=== PATIENT | male | born 1940 | race Caucasian/White ===

== ENCOUNTER 2018-07-24 12:00 | Emergency (ER) | payer MEDICARE, OTHER, SELFPAY ==
[2018-07-24 12:04] VITALS: BP 154/71; PULSE 51; RESP 15; TEMP 36.7; O2SAT 100; BMI 27.9
--- NOTE | 2018-07-24 12:07 | ED.CHESTPAIN ---
HPI - Chest Pain General Chief Complaint: Chest Pain Stated Complaint: Chest Pain Time Seen by Provider: 07/24/18 12:02 Source: patient Mode of arrival: EMS Limitations: no limitations History of Present Illness HPI narrative: Patient is a 77-year-old male with a history of atrial fibrillation on Coumadin here for evaluation of chest pain. Patient states that his chest pain started sometime within the past 48 hr. He was unsure of the exact onset. He states that he was at a birthday [employer] when it started. He states that was a pressure. Has been constant for the past 2 days. Things were not improving this morning so his called EMS. His gave him aspirin prior to this. When EMS arrived they gave him nitroglycerin which resolved his symptoms. He has been symptom free since he received this nitro. Denies any other associated symptoms. Related Data Home Medications Medication Instructions Recorded Confirmed One-A-Day Men's Multivitamin 1 tab PO DAILY 07/24/18 07/24/18 aspirin 81 mg PO QPM 07/24/18 07/24/18 bumetanide 1 mg PO QPM 07/24/18 07/24/18 bumetanide 2 mg PO QAM 07/24/18 07/24/18 carbidopa-levodopa 3 tab PO TID 07/24/18 07/24/18 cholecalciferol (vitamin D3) 1,000 unit PO DAILY 07/24/18 07/24/18 [Vitamin D3] docusate calcium [Stool Softener] 1 - 2 cap PO DAILY 07/24/18 07/24/18 ketoconazole 1 applic TOPICAL DIRECTED 07/24/18 07/24/18 metoprolol succinate [Toprol XL] 25 tab PO DAILY 07/24/18 07/24/18 potassium chloride [Klor-Con 10] 10 meq PO BID 07/24/18 07/24/18 ranitidine HCl 150 mg PO BID 07/24/18 07/24/18 selegiline HCl 5 mg PO BID 07/24/18 07/24/18 sennosides [senna] 1 tab PO BID 07/24/18 07/24/18 tolterodine [Detrol LA] 2 mg PO DAILY 07/24/18 07/24/18 warfarin 5 mg PO DAILY 07/24/18 07/24/18 Allergies Allergy/AdvReac Type Severity Reaction Status Date / Time penicillin G Allergy Swelling Verified 07/24/18 12:22 of Lip/Tongue/Throat hydrochlorothiazide AdvReac Verified 07/24/18 12:22 lisinopril AdvReac Cough Verified 07/24/18 12:22 simvastatin [From Zocor] AdvReac Weakness Verified 07/24/18 12:22 Review of Systems Constitutional Denies fatigue and Denies fever(s) ENT Ears, Nose, Mouth, and Throat: Denies vertigo and Denies dizziness Cardiovascular Reports chest pain, Denies diaphoresis, Denies rapid heart rate, Reports edema, Reports irregular heart rhythm, Reports leg edema, Denies palpitations and Denies dyspnea Respiratory Denies dyspnea Gastrointestinal Gastrointestinal: Denies abdominal pain, Denies diarrhea, Denies nausea and Denies vomiting Genitourinary Denies dysuria Musculoskeletal Denies myalgias and Denies arthralgias Integumentary/Breasts Denies lesions and Denies rash Neurologic Denies confusion, Denies vertigo and Denies dizziness Psychiatric Denies confusion Endocrine Denies fatigue and Denies palpitations Hematologic/Lymphatic Denies easy bleeding and Denies easy bruising [facility] Medical History Atrial fibrillation (Acute) Congestive heart failure (Acute) Hypertension (Acute) Surgical History No pertinent past surgical history (Acute) Social History Smoking Status: Former smoker Exam Initial Vital Signs Initial Vital Signs: Vital Signs Temperature 98.0 F 07/24/18 12:04 Pulse Rate 51 L 07/24/18 12:04 Respiratory Rate 15 07/24/18 12:04 Blood Pressure 154/71 H 07/24/18 12:04 Pulse Oximetry 100 07/24/18 12:04 Const General: cooperative, comfortable, well developed, well groomed and No acute distress Orientation: alert, awake and oriented x3 HENMT Head: normal to inspection and normocephalic Resp Effort & Inspection: normal respiratory effort Auscultation: clear to auscultation bilaterally Cardio Rate: bradycardic Rhythm: abnormal rhythm irregularly irregular Pulses: radial pulses present GI Inspection: normal to inspection and non-distended Palpation: soft, No firm and No tender Skin Lesions: no lesions Rashes: no rashes Neuro General: alert, awake and oriented x3 Cognition: normal cognition Extrem Other: 2+ bilateral lower extremity edema Psych Appearance: grossly normal and well kempt Course Orders Ordered: ED Orders 07/24/18 12:07 XR chest 1V Stat EKG-12 Lead Stat 07/24/18 12:30 B Type Natriuretic Peptide Stat Complete Blood Count AUTO DIFF Stat Comprehensive Metabolic Panel Stat Lipase Stat Partial Thromboplastin Time Stat Prothrombin Time INR Stat Troponin & CK Cardiac Panel Stat Sodium Chloride (Normal Saline 0.9%) 1,000 mls @ 150 mls/hr IV CONT TC Last Admin: 07/24/18 12:26 Dose: 150 mls/hr Vital Signs - 8 hr 07/24/18 12:04 07/24/18 13:30 Temperature 98.0 F Pulse Rate 51 L 63 Respiratory Rate 15 99 H Blood Pressure 154/71 H Blood Pressure [Left Arm] 147/75 H Pulse Oximetry 100 99 MDM - Chest Pain Lab Data Attestation: I reviewed the patient's lab results. Result diagrams: 07/24/18 12:30 07/24/18 12:30 Lab Results 07/24/18 07/24/18 07/24/18 Range/Units 12:30 12:30 12:30 WBC 8.6 (4.5-11.0) X10^3/uL RBC 4.15 L (4.5-5.9) X10^6/uL Hgb 12.7 L (13.5-17.5) g/dL Hct 37.5 L (41-53) % MCV 90.5 (80-100) fL MCH 30.6 (26-34) PG MCHC 33.8 (30-36) % RDW 14.6 (11.6-14.8) % Plt Count 213 (150-400) X10^3/uL Neut % (Auto) 68.2 (50-75) % Lymph % (Auto) 16.1 L (25-40) % [place] % (Auto) 12.9 (3-14) % Eos % (Auto) 2.3 (2-4) % Baso % (Auto) 0.5 (0-2) % Neut # (Auto) 5900 (7814-4107) /uL PT 23.2 H (10.1-12.7) SECONDS INR 2.1 H (0.9-1.3) APTT 39 H (26.4-36.2) SECONDS Sodium 143 (137-145) mmol/L Potassium 4.2 (3.4-5.1) mmol/L Chloride 98 (98-107) mmol/L Carbon Dioxide 38 H (22-32) mmol/L BUN 25 H (9-20) mg/dL Creatinine 1.20 (0.66-1.25) mg/dL Estimated GFR 58.4 L (>60) mL/min BUN/Creatinine Ratio 20.8 (6-22) Glucose 113 H (80-110) mg/dL Calcium 9.7 (8.4-10.2) mg/dL Total Bilirubin 0.7 (0.2-1.3) mg/dL AST 121 H (17-59) IU/L ALT 9 L (21-72) IU/L Alkaline Phosphatase 67 (38-126) U/L Total Creatine Kinase 781 H (55-170) U/L CK-MB (CK-2) 28.90 H (<2.37) ng/mL CK-MB (CK-2) Rel Index 3.7 (1.5-5.0) % Troponin I 6.620 H* (0.01-0.034) ng/mL B-Natriuretic Peptide (<100) Total Protein 7.7 (6.3-8.2) g/dL Albumin 4.1 (3.5-5.0) g/dL Globulin 3.6 (1.7-4.1) g/dL Albumin/Globulin Ratio 1.1 (1.0-2.8) Lipase 87 (23-300) U/L 07/24/18 Range/Units 12:30 WBC (4.5-11.0) X10^3/uL RBC (4.5-5.9) X10^6/uL Hgb (13.5-17.5) g/dL Hct (41-53) % MCV (80-100) fL MCH (26-34) PG MCHC (30-36) % RDW (11.6-14.8) % Plt Count (150-400) X10^3/uL Neut % (Auto) (50-75) % Lymph % (Auto) (25-40) % [place] % (Auto) (3-14) % Eos % (Auto) (2-4) % Baso % (Auto) (0-2) % Neut # (Auto) (1185-1966) /uL PT (10.1-12.7) SECONDS INR (0.9-1.3) APTT (26.4-36.2) SECONDS Sodium (137-145) mmol/L Potassium (3.4-5.1) mmol/L Chloride (98-107) mmol/L Carbon Dioxide (22-32) mmol/L BUN (9-20) mg/dL Creatinine (0.66-1.25) mg/dL Estimated GFR (>60) mL/min BUN/Creatinine Ratio (6-22) Glucose (80-110) mg/dL Calcium (8.4-10.2) mg/dL Total Bilirubin (0.2-1.3) mg/dL AST (17-59) IU/L ALT (21-72) IU/L Alkaline Phosphatase (38-126) U/L Total Creatine Kinase (55-170) U/L CK-MB (CK-2) (<2.37) ng/mL CK-MB (CK-2) Rel Index (1.5-5.0) % Troponin I (0.01-0.034) ng/mL B-Natriuretic Peptide 429.0 H (<100) Total Protein (6.3-8.2) g/dL Albumin (3.5-5.0) g/dL Globulin (1.7-4.1) g/dL Albumin/Globulin Ratio (1.0-2.8) Lipase (23-300) U/L Imaging Data Chest x-ray: Radiologist's impression: PROCEDURE: XR CHEST 1V INDICATIONS: chest pain TECHNIQUE: One view of the chest was acquired. COMPARISON: [facility], , CHEST 1VW (PORTABLE), 06/05/2012, 19:26. FINDINGS: Surgical changes and devices: None. Lungs and pleura: No pleural effusions or pneumothorax. Patchy opacity noted in the left lung base concerning for aspiration versus pneumonia. Mediastinum: Mediastinal contours appear normal. Heart size is normal. Bones and chest wall: No suspicious bony lesions. Overlying soft tissues appear unremarkable. IMPRESSION: Left basilar patchy opacities concerning for aspiration versus pneumonia. Dictated by: Jennifer Gamez MD, PhD on 07/24/2018 at 12:22 Approved by: Jennifer Gamez MD, PhD on 07/24/2018 at 12:22 ECG Data Attestation: I personally reviewed and interpreted this ECG as follows: Prior ECG tracings: not available for review Interpretation: Atrial fibrillation Ventricular rate of 52 Normal axis Normal QRS Nonspecific ST T wave changes Core Measures AMI core measures followed: Yes MDM Narrative Medical decision making narrative: Patient received aspirin prior to arrival here in the emergency department. Has been pain free since he received nitro by EMS. His AFib on his EKG without any ischemic changes. Patient is therapeutic on his Coumadin with INR 2.1. 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 Flannery at [facility]. Discussed the case with the hospitalist at [facility] who accepts the patient for transport. Since he is therapeutic on his Coumadin will hold on heparin. I discussed the transfer with the patient and his . They both expressed understanding and agreement with plan. Discharge Plan Departure Patient Disposition: [facility] Clinical Impression: Non-ST elevated myocardial infarction, Atrial fibrillation, CHF (congestive heart failure) Prescriptions: No Action tolterodine [Detrol LA] 2 mg capsule,extended release 24hr 2 mg PO DAILY RF: 0 bumetanide 2 mg tablet 2 mg PO QAM RF: 0 metoprolol succinate [Toprol XL] 50 mg tablet extended release 24 hr 25 tab PO DAILY RF: 0 docusate calcium [Stool Softener] 240 mg capsule 1 - 2 cap PO DAILY RF: 0 carbidopa-levodopa 50-200 mg tablet extended release 3 tab PO TID RF: 0 potassium chloride [Klor-Con 10] 10 mEq tablet extended release 10 meq PO BID RF: 0 ranitidine HCl 150 mg tablet 150 mg PO BID RF: 0 warfarin 5 mg tablet 5 mg PO DAILY RF: 0 ketoconazole 2 % cream 1 applic Topical DIRECTED RF: 0 selegiline HCl 5 mg capsule 5 mg PO BID RF: 0 sennosides [senna] 8.6 mg Tablet 1 tab PO BID RF: 0 bumetanide 2 mg tablet 1 mg PO QPM RF: 0 aspirin 81 mg Tablet,Delayed Release (Dr/Ec) 81 mg PO QPM RF: 0 cholecalciferol (vitamin D3) [Vitamin D3] 1,000 unit Tablet 1,000 unit PO DAILY RF: 0 One-A-Day Men's Multivitamin 1 tab PO DAILY RF: 0
[2018-07-24] MEDS: SODIUM CHLORIDE 0.9% 1,000 ML 150 ML IV (12:26)
[2018-07-24 12:35] LABS: Add Manual Diff / Slide Review NO; Basophils Percent Auto 0.5 % (0-2); Eosinophils Percent Auto 2.3 % (2-4); Hematocrit 37.5 % (41-53); Hemoglobin 12.7 g/dL (13.5-17.5); Lymphocytes Percent Auto 16.1 % (25-40); Mean Corpuscular HGB Conc 33.8 % (30-36); Mean Corpuscular Hemoglobin 30.6 PG (26-34); Mean Corpuscular Volume 90.5 fL (80-100); Monocytes Percent Auto 12.9 % (3-14); Neutrophils Absolute Auto 5900 /uL (3000-5900); Neutrophils Percent Auto 68.2 % (50-75); Platelet Count 213 X10^3/uL (150-400); Red Blood Cell Count 4.15 X10^6/uL (4.5-5.9); Red Cell Distribution Width 14.6 % (11.6-14.8); White Blood Cell Count 8.6 X10^3/uL (4.5-11.0)
[2018-07-24 12:50] LABS: Alanine Aminotransferase 9 IU/L (21-72); Albumin 4.1 g/dL (3.5-5.0); Albumin Globulin Ratio 1.1 (1.0-2.8); Alkaline Phosphatase 67 U/L (38-126); Aspartate Aminotransferase 121 IU/L (17-59); BUN Creatinine Ratio 20.8 (6-22); Bilirubin Total 0.7 mg/dL (0.2-1.3); Blood Urea Nitrogen 25 mg/dL (9-20); Calcium 9.7 mg/dL (8.4-10.2); Carbon Dioxide 38 mmol/L (22-32); Chloride 98 mmol/L (98-107); Creatine Kinase 781 U/L (55-170); Estimated Glomerular Filt Rate 58.4 mL/min (>60); Globulin 3.6 g/dL (1.7-4.1); Glucose 113 mg/dL (80-110); HEMOLYSIS < 15 (0-50); Lipase 87 U/L (23-300); Potassium 4.2 mmol/L (3.4-5.1); Sodium 143 mmol/L (137-145); Total Protein 7.7 g/dL (6.3-8.2)
[2018-07-24 13:05] LABS: CKMB % Relative Index 3.7 % (1.5-5.0)
[2018-07-24 13:30] VITALS: BP 147/75; PULSE 63; RESP 99; O2SAT 99
[2018-07-24 13:30] LABS: INR 2.1 (0.9-1.3); Prothrombin Time 23.2 SECONDS (10.1-12.7)
[2018-07-24 13:33] LABS: PTT Partial Thromboplastin Tim 39 SECONDS (26.4-36.2)
[2018-07-24 14:27] VITALS: BP 130/65; PULSE 64; RESP 15; O2SAT 99
[2018-07-24 15:00] VITALS: BP 141/65; PULSE 57; RESP 16; O2SAT 99
[2018-07-24 16:00] VITALS: BP 141/64; PULSE 51; RESP 14; O2SAT 100
== END 2018-07-24 16:10 | disposition short-term general hospital (02) ==
PROVIDERS: Emergency Provider Emergency Medicine; Family Provider Family Medicine; PCP Family Medicine
DX: I21.4 Non-ST elevation (NSTEMI) myocardial infarction (principal); I48.91 Unspecified atrial fibrillation; I50.9 Heart failure, unspecified
CPT/HCPCS: 36415; 71045; 80053; 82550; 82553; 83690; 83880; 84484; 85025; 85610; 85730; 93005; 93010; 96360; 96361; 99283; 99285

== ENCOUNTER 2019-02-05 10:03 | Emergency (ER) | payer MEDICARE, OTHER, SELFPAY ==
[2019-02-05 10:05] VITALS: BP 175/77; PULSE 70; RESP 14; TEMP 36.6; O2SAT 99; BMI 26.0
--- NOTE | 2019-02-05 10:35 | ED_ITS ---
HPI - Fall General Chief Complaint: Trauma Stated Complaint: fell hit head bleeding Time Seen by Provider: 02/05/19 10:27 Source: patient Mode of arrival: ambulatory Limitations: no limitations History of Present Illness HPI Narrative: Patient is a 78-year-old male with history of Parkinson's on Coumadin is presenting after a ground level fall. He states he was getting out of bed this morning putting on his pajamas when he fell backwards hitting his head on a dresser. No loss of consciousness no nausea vomiting no weakness. He had no dizziness lightheadedness or chest pain prior to arrival. MD complaint: fall Fall from: standing Place fall occurred: home Loss of consciousness: none Context: tripped/slipped Related Data Home Medications Medication Instructions Recorded Confirmed One-A-Day Men's Multivitamin 1 tab PO DAILY 07/24/18 07/24/18 aspirin 81 mg PO QPM 07/24/18 07/24/18 bumetanide 1 mg PO QPM 07/24/18 07/24/18 bumetanide 2 mg PO QAM 07/24/18 07/24/18 carbidopa-levodopa 3 tab PO TID 07/24/18 02/05/19 cholecalciferol (vitamin D3) 1,000 unit PO DAILY 07/24/18 07/24/18 [Vitamin D3] docusate calcium [Stool Softener] 1 - 2 cap PO DAILY 07/24/18 02/05/19 ketoconazole 1 applic TOPICAL DIRECTED 07/24/18 07/24/18 metoprolol succinate [Toprol XL] 25 tab PO DAILY 07/24/18 02/05/19 potassium chloride [Klor-Con 10] 10 meq PO BID 07/24/18 02/05/19 ranitidine HCl 150 mg PO BID 07/24/18 02/05/19 selegiline HCl 5 mg PO BID 07/24/18 02/05/19 sennosides [senna] 1 tab PO BID 07/24/18 07/24/18 tolterodine [Detrol LA] 2 mg PO DAILY 07/24/18 02/05/19 warfarin [Coumadin] 02/05/19 Allergies Allergy/AdvReac Type Severity Reaction Status Date / Time penicillin G Allergy Swelling Verified 07/24/18 12:22 of Lip/Tongue/Throat hydrochlorothiazide AdvReac Verified 07/24/18 12:22 lisinopril AdvReac Cough Verified 07/24/18 12:22 simvastatin [From Zocor] AdvReac Weakness Verified 07/24/18 12:22 Review of Systems Review of Systems ROS Unobtainable: All systems reviewed & are unremarkable except as noted in HPI and below Constitutional Denies chills, Denies fever(s), Denies lethargy and Denies weakness Eyes Denies change in vision, Denies eye discharge, Denies irritation and Denies loss of vision ENT Ears, Nose, Mouth, and Throat: Denies change in voice, Denies neck pain and Denies sore throat Cardiovascular Denies chest pain, Denies irregular heart rhythm, Denies lightheadedness, Denies palpitations and Denies orthopnea Gastrointestinal Gastrointestinal: Denies abdominal pain, Denies change in bowel habits, Denies diarrhea, Denies nausea and Denies vomiting Musculoskeletal Denies neck pain Integumentary/Breasts Denies pruritus, Denies erythema, Denies rash and Denies wounds Neurologic Denies loss of vision and Denies weakness Endocrine Denies palpitations Exam Initial Vital Signs Initial Vital Signs: Vital Signs Temperature 97.9 F 02/05/19 10:05 Pulse Rate 70 02/05/19 10:05 Respiratory Rate 14 02/05/19 10:05 Blood Pressure 175/77 H 02/05/19 10:05 Pulse Oximetry 99 02/05/19 10:05 GENERAL: Alert elderly male well-dressed no acute distress HEENT: Head left sided swelling this small abrasion no active bleeding EOMI, p upils reactive, neck is supple no tenderness full rotation flexion and extension CARDIOVASCULAR: Regular rate and rhythm without murmurs, rubs or gallops. RESPIRATORY: Breath sounds equal bilaterally, no wheezes rales or rhonchi. ABDOMEN: Soft, nontender. Normoactive bowel sounds all 4 quadrants. No guarding or rebound. EXTREMITIES: Normal range of motion, no clubbing or edema. Neurovascularly intact NEUROLOGICAL: Alert and oriented x4.Normal gait and speech. Cranial nerves II through XII grossly intact. No resting tremor appreciated SKIN: Warm, dry, no laceration, no petechiae, no rashes or lesions. [facility] Medical History Atrial fibrillation (Acute) Congestive heart failure (Acute) Hypertension (Acute) Parkinsons (Acute) Surgical History No pertinent past surgical history (Acute) Social History Smoking Status: Former smoker Social History Smoking Status: Former smoker Scores NIH Stroke Scale Level of Conciousness: Alert, keenly responsive Ask month/age: Answers both questions correctly. Open/close eyes, close hand: Performs both tasks correctly Best gaze horizontal: Normal Visual adhikari: No visual loss Facial palsy: Normal symetrical movement Left arm drift: No drift for full 10 sec Right arm drift: No drift for full 10 sec Left leg drift: No drift for full 10 sec Right leg drift: No drift for full 10 sec Limb ataxia: Absent Sensory on face/arms/legs: Normal, no sensory loss Best language: No aphasia, normal Dysarthria: Normal Extinction or inattention: No abnormality Total NIH Stroke scale score: 0 Course Orders Ordered: ED Orders 02/05/19 10:35 CT head/brain wo con Stat Vital Signs - 8 hr 02/05/19 10:05 02/05/19 11:32 Temperature 97.9 F Pulse Rate 70 57 L Respiratory Rate 14 16 Blood Pressure 175/77 H Blood Pressure [Right Arm] 154/56 H Pulse Oximetry 99 97 MDM - Fall Imaging Data CT scan - head: Radiologist's impression: PROCEDURE: CT HEAD/BRAIN WO CON INDICATIONS: fall on coumadin TECHNIQUE: Noncontrast 4.5 mm thick angled axial sections acquired from the foramen magnum to the vertex, with coronal and sagittal reformats. For radiation dose reduction, the following was used: automated exposure control, adjustment of mA and/or kV according to patient size. COMPARISON: [facility], CT, BRAIN W/O CONTRAST, 06/05/2012, 19:34. FINDINGS: Image quality: Excellent. CSF spaces: Basal cisterns are patent. No extra-axial fluid collections. The ventricles are dilated but symmetric in size and shape, and appears unchanged from 06/05/2012. Brain: No intracranial bleeds or masses. There is moderate cerebral volume loss for age, with resultant ventricular and sulcal prominence. There are moderate periventricular and deep white matter chronic small vessel ischemic changes. There is intracranial internal carotid artery atherosclerosis. Skull and face: Calvarium and visualized facial bones appear intact, without suspicious lesions. There is a left parietal subscalp hematoma. Sinuses: Visualized sinuses and mastoids are clear. IMPRESSION: 1. No acute intracranial abnormalities. No intracranial bleed. 2. Cerebral volume loss and chronic microvascular ischemic changes. 3. Ventricular dilation may be secondary to central atrophy or normal pressure hydrocephalus. Recommend clinical correlation. 4. Left parietal subcutaneous scalp hematoma. 5. Right maxillary sinus mucus retention cysts. Dictated by: Fabio Tirado M.D. on 02/05/2019 at 10:47 Approved by: Fabio Tirado M.D. on 02/05/2019 at 10:53 [facility] Narrative Medical decision making narrative: The patient overall feeling fine no focal deficits. This was a mechanical fall from Parkinson's. Discharge Plan Departure Patient Disposition: Home Clinical Impression: Closed head injury Qualifiers: Encounter type: initial encounter Qualified Code(s): S09.90XA - Unspecified injury of head, initial encounter Discharge Date/Time: 02/05/19 11:40 Interventions: ED Discharge Assessment Last Done: 02/05/19 11:54 Instructions: Closed Head Injury Activity Restrictions/Additional Instructions: *You have been diagnosed with closed head injury *What to do: CT scan at this time does not show any bleeding you do have a bruise on left side of her head. Ice it 20 min at a time. *Continue to take medications as directed Tylenol 650 mg every 4-6 hours if needed for pain *Follow up with your primary care provider in 2-3 days *Return to ER if you should have vomiting, weakness, worsening headache, confusion or any new, worsening or concerning symptoms Prescriptions: No Action tolterodine [Detrol LA] 2 mg capsule,extended release 24hr 2 mg PO DAILY RF: 0 bumetanide 2 mg tablet 2 mg PO QAM RF: 0 metoprolol succinate [Toprol XL] 50 mg tablet extended release 24 hr 25 tab PO DAILY RF: 0 docusate calcium [Stool Softener] 240 mg capsule 1 - 2 cap PO DAILY RF: 0 carbidopa-levodopa 50-200 mg tablet extended release 3 tab PO TID RF: 0 potassium chloride [Klor-Con 10] 10 mEq tablet extended release 10 meq PO BID RF: 0 ranitidine HCl 150 mg tablet 150 mg PO BID RF: 0 ketoconazole 2 % cream 1 applic Topical DIRECTED RF: 0 selegiline HCl 5 mg capsule 5 mg PO BID RF: 0 sennosides [senna] 8.6 mg Tablet 1 tab PO BID RF: 0 bumetanide 2 mg tablet 1 mg PO QPM RF: 0 aspirin 81 mg Tablet,Delayed Release (Dr/Ec) 81 mg PO QPM RF: 0 cholecalciferol (vitamin D3) [Vitamin D3] 1,000 unit Tablet 1,000 unit PO DAILY RF: 0 One-A-Day Men's Multivitamin 1 tab PO DAILY RF: 0 warfarin [Coumadin] 5 mg tablet RF: 0 Referrals: Linda Scott MD [Primary Care Provider] -
[2019-02-05 11:32] VITALS: BP 154/56; PULSE 57; RESP 16; O2SAT 97
--- NOTE | 2019-02-05 11:53 | PC.NURSE ---
Pt denies midcervical tenderness to palpate, able to move all extremities w/o problems
== END 2019-02-05 11:40 | disposition home or self-care (01) ==
PROVIDERS: Emergency Provider Emergency Medicine; Family Provider Family Medicine; PCP Family Medicine
DX: S09.90XA Unspecified injury of head, initial encounter (principal); W18.30XA Fall on same level, unspecified, initial encounter; Z79.01 Long term (current) use of anticoagulants
CPT/HCPCS: 70450; 99282; 99284

== ENCOUNTER 2019-02-28 23:07 | Emergency (ER) | payer MEDICARE, OTHER, SELFPAY ==
[2019-02-28 23:10] VITALS: BMI 27.9
--- NOTE | 2019-02-28 23:14 | ED_ITS ---
HPI - Fall General Chief Complaint: Trauma Stated Complaint: fell down stairs, hit head, on Coumidan Time Seen by Provider: 02/28/19 23:13 Source: patient Mode of arrival: ambulatory Limitations: no limitations History of Present Illness HPI Narrative: Patient is an 78-year-old male. Currently on Coumadin who stated that he tripped while going up a flight of stairs and fell down backwards down 4 stairs. He did hit his head. No loss of consciousness. Does have some skin tears to his right arm. He was able to get up afterwards. Has not had any vomiting. Actually walked up the stairs again to get his who was taking a shower. He came to the emergency department by private vehicle. He has a hematoma on the back of his head. Denies any other symptoms or any other injuries from the fall. Related Data Home Medications Medication Instructions Recorded Confirmed One-A-Day Men's Multivitamin 1 tab PO DAILY 07/24/18 07/24/18 aspirin 81 mg PO QPM 07/24/18 07/24/18 bumetanide 1 mg PO QPM 07/24/18 07/24/18 bumetanide 2 mg PO QAM 07/24/18 07/24/18 carbidopa-levodopa 3 tab PO TID 07/24/18 02/05/19 cholecalciferol (vitamin D3) 1,000 unit PO DAILY 07/24/18 07/24/18 [Vitamin D3] docusate calcium [Stool Softener] 1 - 2 cap PO DAILY 07/24/18 02/05/19 ketoconazole 1 applic TOPICAL DIRECTED 07/24/18 07/24/18 metoprolol succinate [Toprol XL] 25 tab PO DAILY 07/24/18 02/05/19 potassium chloride [Klor-Con 10] 10 meq PO BID 07/24/18 02/05/19 ranitidine HCl 150 mg PO BID 07/24/18 02/05/19 selegiline HCl 5 mg PO BID 07/24/18 02/05/19 sennosides [senna] 1 tab PO BID 07/24/18 07/24/18 tolterodine [Detrol LA] 2 mg PO DAILY 07/24/18 02/05/19 warfarin [Coumadin] 02/05/19 Allergies Allergy/AdvReac Type Severity Reaction Status Date / Time penicillin G Allergy Swelling Verified 07/24/18 12:22 of Lip/Tongue/Throat hydrochlorothiazide AdvReac Verified 07/24/18 12:22 lisinopril AdvReac Cough Verified 07/24/18 12:22 simvastatin [From Zocor] AdvReac Weakness Verified 07/24/18 12:22 Review of Systems Constitutional Denies frequent falls, Denies headache(s) and Denies weakness Eyes Denies change in vision and Denies diplopia ENT Ears, Nose, Mouth, and Throat: Denies vertigo, Denies dizziness, Denies headache(s) and Denies disequilibrium Cardiovascular Denies chest pain, Denies syncope and Denies dyspnea Respiratory Denies dyspnea Gastrointestinal Gastrointestinal: Denies abdominal pain, Denies nausea and Denies vomiting Musculoskeletal Denies back pain, Denies myalgias, Denies arthralgias, Denies numbness and Denies tingling Integumentary/Breasts Reports lesions, Denies rash and Reports wounds Neurologic Denies confusion, Denies vertigo, Denies dizziness, Denies syncope, Denies frequent falls, Denies headache(s), Denies numbness, Denies radicular pain, Denies tingling, Denies disequilibrium and Denies weakness Psychiatric Denies confusion Hematologic/Lymphatic Comments: On Coumadin Allergic/Immunologic Denies urticaria Exam Initial Vital Signs Initial Vital Signs: Vital Signs Temperature 97.9 F 02/28/19 23:22 Pulse Rate 62 02/28/19 23:22 Respiratory Rate 18 02/28/19 23:22 Blood Pressure 169/66 H 02/28/19 23:22 Pulse Oximetry 98 02/28/19 23:22 Const General: cooperative, comfortable, well developed, well groomed and No acute distress Orientation: alert, awake and oriented x3 HENMT Head: No abrasion and contusion (Left parietal) Nose: external nose normal Face and sinus: normal facial exam Resp Effort & Inspection: normal respiratory effort Auscultation: clear to auscultation bilaterally Cardio Rate: regular rate Rhythm: regular rhythm GI Inspection: non-distended Palpation: soft Back/Spine/Pelvis Cervical Spine: No collar present, No pain with cervical ROM, No cervical spasm and No cervical spinal tenderness Skin Lesions: other (Patient with skin abrasions to the right upper extremity 1 over the elbow a) Rashes: no rashes Neuro General: alert, awake and oriented x3 Cognition: normal cognition Speech: speech normal Extrem General: edema (Bilateral lower extremities) Psych Appearance: grossly normal and well kempt [facility] Medical History Atrial fibrillation (Acute) Congestive heart failure (Acute) Hypertension (Acute) Parkinsons (Acute) Surgical History No pertinent past surgical history (Acute) Social History Smoking Status: Former smoker Social History Smoking Status: Former smoker Course Orders Ordered: ED Orders 02/28/19 23:14 CT head/brain wo con Stat 02/28/19 23:20 Basic Metabolic Panel Stat Complete Blood Count AUTO DIFF Stat Partial Thromboplastin Time Stat Prothrombin Time INR Stat Discontinued Medications Diphtheria/Tetanus/Acell Pertussis (Adacel) 0.5 ml IM .ONCE ONE Stop: 03/01/19 00:01 Last Admin: 03/01/19 00:24 Dose: 0.5 ml Vital Signs - 8 hr 02/28/19 23:22 02/28/19 23:30 02/28/19 23:35 Temperature 97.9 F Pulse Rate 62 64 66 Respiratory Rate 18 18 18 Blood Pressure [Right Arm] 169/66 H 168/69 H 170/67 H Pulse Oximetry 98 98 98 02/28/19 23:50 03/01/19 00:05 03/01/19 00:20 Temperature Pulse Rate 64 63 62 Respiratory Rate 18 20 20 Blood Pressure [Right Arm] 160/70 H 171/66 H 165/68 H Pulse Oximetry 97 97 97 MDM - Fall Lab Data Attestation: I reviewed the patient's lab results. Result diagrams: 02/28/19 23:20 02/28/19 23:20 Lab Results 02/28/19 02/28/19 02/28/19 Range/Units 23:20 23:20 23:20 WBC 7.3 (4.5-11.0) X10^3/uL RBC 4.23 L (4.5-5.9) X10^6/uL Hgb 13.1 L (13.5-17.5) g/dL Hct 39.1 L (41-53) % MCV 92.3 (80-100) fL MCH 31.0 (26-34) PG MCHC 33.6 (30-36) % RDW 15.1 H (11.6-14.8) % Plt Count 240 (150-400) X10^3/uL Neut % (Auto) 61.7 (50-75) % Lymph % (Auto) 22.5 L (25-40) % [place] % (Auto) 11.3 (3-14) % Eos % (Auto) 3.8 (2-4) % Baso % (Auto) 0.7 (0-2) % Neut # (Auto) 4500 (5775-2041) /uL Lymph # (Auto) 1700 (9250-1349) /uL [place] # (Auto) 800 (0-900) /uL Eos # (Auto) 300 (0-450) /uL Baso # (Auto) 100 (0-100) /uL PT 24.4 H (10.1-12.7) SECONDS INR 2.1 H (0.9-1.3) APTT 35 D (26.4-36.2) SECONDS Sodium 140 (137-145) mmol/L Potassium 3.4 (3.4-5.1) mmol/L Chloride 97 L (98-107) mmol/L Carbon Dioxide 32 (22-32) mmol/L BUN 30 H (9-20) mg/dL Creatinine 1.20 (0.66-1.25) mg/dL Estimated GFR 58.3 L (>60) mL/min BUN/Creatinine Ratio 25.0 H (6-22) Glucose 137 H (80-110) mg/dL Calcium 9.2 (8.4-10.2) mg/dL Imaging Data CT scan - head: Radiologist's impression: No evidence for intracranial trauma. MDM Narrative Medical decision making narrative: CT scans unremarkable. INR is 2.1. He does have skin tears to his right arm which do not require any suturing. These were bandaged here in the emergency department. He does have a hematoma to his left parietal area of his scalp. There are no breaks in the skin. He is alert oriented x3. He reports no other injuries from the fall. Will hold on further workup for now. He was instructed to contact his primary care doctor for follow-up. He is given care instructions with regard to the skin tears. He is given return precautions. Both he and his expressed understanding and agreement with this plan. Discharge Plan Departure Patient Disposition: Home Clinical Impression: Abrasion of skin CHI (closed head injury) Qualifiers: Encounter type: initial encounter Qualified Code(s): S09.90XA - Unspecified injury of head, initial encounter Hematoma of left parietal scalp Qualifiers: Encounter type: initial encounter Qualified Code(s): S00.03XA - Contusion of scalp, initial encounter Discharge Date/Time: 03/01/19 00:35 Interventions: ED Discharge Assessment Last Done: 03/01/19 02:27 Instructions: How to Prevent Falls, Closed Head Injury, DI for Abrasion Activity Restrictions/Additional Instructions: Continue all of your medications as directed. Contact your primary care doctor for a follow-up. Return to the emergency department for any new or worsening symptoms Prescriptions: No Action tolterodine [Detrol LA] 2 mg capsule,extended release 24hr 2 mg PO DAILY RF: 0 bumetanide 2 mg tablet 2 mg PO QAM RF: 0 metoprolol succinate [Toprol XL] 50 mg tablet extended release 24 hr 25 tab PO DAILY RF: 0 docusate calcium [Stool Softener] 240 mg capsule 1 - 2 cap PO DAILY RF: 0 carbidopa-levodopa 50-200 mg tablet extended release 3 tab PO TID RF: 0 potassium chloride [Klor-Con 10] 10 mEq tablet extended release 10 meq PO BID RF: 0 ranitidine HCl 150 mg tablet 150 mg PO BID RF: 0 ketoconazole 2 % cream 1 applic Topical DIRECTED RF: 0 selegiline HCl 5 mg capsule 5 mg PO BID RF: 0 sennosides [senna] 8.6 mg Tablet 1 tab PO BID RF: 0 bumetanide 2 mg tablet 1 mg PO QPM RF: 0 aspirin 81 mg Tablet,Delayed Release (Dr/Ec) 81 mg PO QPM RF: 0 cholecalciferol (vitamin D3) [Vitamin D3] 1,000 unit Tablet 1,000 unit PO DAILY RF: 0 One-A-Day Men's Multivitamin 1 tab PO DAILY RF: 0 warfarin [Coumadin] 5 mg tablet RF: 0 Referrals: Linda Scott MD [Primary Care Provider] -
--- NOTE | 2019-02-28 23:14 | DI.CT.S_ITS ---
PROCEDURE: CT HEAD/BRAIN WO CON INDICATIONS: Fall, on Coumadin TECHNIQUE: Noncontrast 4.5 mm thick angled axial sections acquired from the foramen magnum to the vertex, with coronal and sagittal reformats. For radiation dose reduction, the following was used: automated exposure control, adjustment of mA and/or kV according to patient size. COMPARISON: [facility], CT, CT HEAD/BRAIN WO CON, 02/05/2019, 10:35. FINDINGS: Image quality: Excellent. CSF spaces: Basal cisterns are patent. No extra-axial fluid collections. The ventricles are enlarged. Brain: No intracranial bleeds or masses. There is cerebral volume loss for age, with resultant ventricular and sulcal prominence. There are periventricular and deep white matter chronic small vessel ischemic changes. There is intracranial internal carotid artery atherosclerosis. Skull and face: Calvarium and visualized facial bones appear intact, without suspicious lesions. Small left parietal scalp hematoma is noted. Sinuses: Visualized sinuses and mastoids are clear. IMPRESSION: 1. No acute intracranial disease process 2. Ventriculomegaly stable compared to 02/05/19. Ventriculomegaly could be due to central volume loss versus normal pressure hydrocephalus. Please correlate with clinical data. Dictated by: Jennifer Gamez MD, PhD on 03/01/2019 at 7:56 Approved by: Jennifer Gamez MD, PhD on 03/01/2019 at 7:59
[2019-02-28 23:22] VITALS: BP 169/66; PULSE 62; RESP 18; TEMP 36.6; O2SAT 98
[2019-02-28 23:28] LABS: Add Manual Diff / Slide Review NO; Basophils Absolute Auto 100 /uL (0-100); Basophils Percent Auto 0.7 % (0-2); Eosinophils Absolute Auto 300 /uL (0-450); Eosinophils Percent Auto 3.8 % (2-4); Hematocrit 39.1 % (41-53); Hemoglobin 13.1 g/dL (13.5-17.5); Lymphocytes Absolute Auto 1700 /uL (1100-4500); Lymphocytes Percent Auto 22.5 % (25-40); Mean Corpuscular HGB Conc 33.6 % (30-36); Mean Corpuscular Volume 92.3 fL (80-100); Monocytes Absolute Auto 800 /uL (0-900); Monocytes Percent Auto 11.3 % (3-14); Neutrophils Absolute Auto 4500 /uL (1500-7000); Neutrophils Percent Auto 61.7 % (50-75); Platelet Count 240 X10^3/uL (150-400); Red Blood Cell Count 4.23 X10^6/uL (4.5-5.9); Red Cell Distribution Width 15.1 % (11.6-14.8); White Blood Cell Count 7.3 X10^3/uL (4.5-11.0)
[2019-02-28 23:30] VITALS: BP 168/69; PULSE 64; RESP 18; O2SAT 98
[2019-02-28 23:35] VITALS: BP 170/67; PULSE 66; RESP 18; O2SAT 98
[2019-02-28 23:35] LABS: INR 2.1 (0.9-1.3); Prothrombin Time 24.4 SECONDS (10.1-12.7)
[2019-02-28 23:39] LABS: Blood Urea Nitrogen 30 mg/dL (9-20); Calcium 9.2 mg/dL (8.4-10.2); Carbon Dioxide 32 mmol/L (22-32); Chloride 97 mmol/L (98-107); Estimated Glomerular Filt Rate 58.3 mL/min (>60); Glucose 137 mg/dL (80-110); HEMOLYSIS < 15 (0-50); Potassium 3.4 mmol/L (3.4-5.1); Sodium 140 mmol/L (137-145)
[2019-02-28 23:48] LABS: PTT Partial Thromboplastin Tim 35 SECONDS (26.4-36.2)
[2019-02-28 23:50] VITALS: BP 160/70; PULSE 64; RESP 18; O2SAT 97
[2019-03-01 00:05] VITALS: BP 171/66; PULSE 63; RESP 20; O2SAT 97
[2019-03-01 00:20] VITALS: BP 165/68; PULSE 62; RESP 20; O2SAT 97
[2019-03-01] MEDS: TET,DIPH,PERTUSS(ACELL),VAC/PF 0.5 ML SYRINGE IM (00:24)
--- NOTE | 2019-03-01 00:27 | PC.NURSE ---
His right arm skin tears were cleaned with sterile saline and dressed with bacitracin.the two small ones on right lower arm and r elbow were dressed with bandaids.The larger skin tear on rfa was dressed with tlefa,kerlix and coban cover.
== END 2019-03-01 00:35 | disposition home or self-care (01) ==
PROVIDERS: Emergency Provider Emergency Medicine; PCP Family Medicine
DX: S00.03XA Contusion of scalp, initial encounter (principal); S40.811A Abrasion of right upper arm, initial encounter; W10.8XXA Fall (on) (from) other stairs and steps, initial encounter; Z79.01 Long term (current) use of anticoagulants; Z23 Encounter for immunization
CPT/HCPCS: 70450; 80048; 85025; 85610; 85730; 93041; 96372; 99284; 99285; 99291; 90715

== ENCOUNTER 2019-12-28 22:26 | Emergency (ER) | payer MEDICARE, OTHER, SELFPAY ==
[2019-12-28 22:36] VITALS: BP 185/79; PULSE 58; RESP 18; TEMP 36.6; O2SAT 99
--- NOTE | 2019-12-28 22:36 | DI.RAD.S_ITS ---
PROCEDURE: XR ABDOMEN 1V INDICATIONS: abdominal pain TECHNIQUE: One view of the abdomen acquired. COMPARISON: [facility], CR, XR CHEST 1V, 12/28/2019, 22:51. FINDINGS: Surgical changes and devices: Lymph node dissection clips are seen within the pelvis. Bowel: Bowel gas pattern is normal. Soft tissues: No suspicious abdominal calcifications. Visualized solid organ contours appear normal in size. Bones: No suspicious bony lesions. S-shaped scoliotic curvature is seen. Age-appropriate bony degenerative changes are seen. IMPRESSION: A nonobstructive bowel gas pattern is seen. As clinically appropriate, please consider a repeat plain film study or a dedicated CT of the abdomen and pelvis, if the patient's symptoms persist or worsen. Postoperative and degenerative changes are seen. Dictated by: Eduardo Dawkins M.D. on 12/29/2019 at 9:04 Approved by: Eduardo Dawkins M.D. on 12/29/2019 at 9:05
--- NOTE | 2019-12-28 22:37 | DI.RAD.S_ITS ---
PROCEDURE: XR CHEST 1V INDICATIONS: near syncope TECHNIQUE: One view of the chest was acquired. COMPARISON: [facility], CR, XR ABDOMEN 1V, 12/28/2019, 22:51. [facility], CR, XR CHEST 1V, 07/24/2018, 12:13. FINDINGS: Surgical changes and devices: None. Lungs and pleura: No focal infiltrates are seen. No pleural effusions or pneumothorax. Mediastinum: The cardiac contours are mildly enlarged. The aorta demonstrates calcification and tortuosity. Bones and chest wall: No suspicious bony lesions. Overlying soft tissues appear unremarkable. IMPRESSION: No definite, acute cardiopulmonary process can be seen on this portable chest. Mild cardiomegaly. As clinically appropriate, a short-term followup chest series (with PA and lateral views) performed in deep inspiration is suggested for further evaluation. Note: No significant discrepancy from the preliminary report. Dictated by: Eduardo Dawkins M.D. on 12/29/2019 at 9:02 Approved by: Eduardo Dawkins M.D. on 12/29/2019 at 9:04
--- NOTE | 2019-12-28 22:43 | ED.SYNCOPE ---
HPI - Syncope General Chief Complaint: Syncope Stated Complaint: syncope Time Seen by Provider: 12/28/19 22:26 Source: patient Mode of arrival: EMS Limitations: no limitations History of Present Illness HPI narrative: 79-year-old male former smoker with history of Parkinson's presents by EMS with a chief complaint of a near syncopal episode. Patient had been in his normal state of health when he awoke, while sitting up in his chair to the sensation of some generalized abdominal cramping and pain, he then got a bit lightheaded and slid to the floor and then proceed to have a bowel movement at which point his pain improved. On arrival, while he was still having pain he was found to have a blood pressure in the 60s, however after his bowel movement and resolution of pain his vital signs normalized. On arrival he is asymptomatic. He states he has been having frequent episodes of abdominal discomfort which builds until a bowel movement improves his symptoms. He denies any chest pain or shortness of breath. He denies any change in medications or diet. MD complaint: almost passed out Onset (ago): minute(s) Prodromal symptoms: other Witnessed: no Context: at rest Injuries sustained associated with event: none Current symptoms: back to baseline History: previous syncopal episode Treatments prior to arrival: IV fluids Related Data Home Medications Medication Instructions Recorded Confirmed One-A-Day Men's Multivitamin 1 tab PO DAILY 07/24/18 07/24/18 aspirin 81 mg PO QPM 07/24/18 07/24/18 bumetanide 1 mg PO QPM 07/24/18 07/24/18 bumetanide 2 mg PO QAM 07/24/18 07/24/18 carbidopa-levodopa 3 tab PO TID 07/24/18 02/05/19 cholecalciferol (vitamin D3) 1,000 unit PO DAILY 07/24/18 07/24/18 [Vitamin D3] docusate calcium [Stool Softener] 1 - 2 cap PO DAILY 07/24/18 02/05/19 ketoconazole 1 applic TOPICAL DIRECTED 07/24/18 07/24/18 metoprolol succinate [Toprol XL] 25 tab PO DAILY 07/24/18 02/05/19 potassium chloride [Klor-Con 10] 10 meq PO BID 07/24/18 02/05/19 ranitidine HCl 150 mg PO BID 07/24/18 02/05/19 selegiline HCl 5 mg PO BID 07/24/18 02/05/19 sennosides [senna] 1 tab PO BID 07/24/18 07/24/18 tolterodine [Detrol LA] 2 mg PO DAILY 07/24/18 02/05/19 warfarin [Coumadin] 02/05/19 Allergies Allergy/AdvReac Type Severity Reaction Status Date / Time penicillin G Allergy Swelling Verified 07/24/18 12:22 of Lip/Tongue/Throat hydrochlorothiazide AdvReac Verified 07/24/18 12:22 lisinopril AdvReac Cough Verified 07/24/18 12:22 simvastatin [From Zocor] AdvReac Weakness Verified 07/24/18 12:22 Review of Systems Constitutional Constitutional: Denies chills, Denies fatigue, Denies fever(s), Denies frequent falls, Denies lethargy and Denies weakness Eyes Eyes: Denies change in vision, Denies eye discharge, Denies irritation and Denies loss of vision ENT Ears, Nose, Mouth, and Throat: Denies change in voice, Denies dizziness, Denies neck pain, Denies sore throat and Denies throat swelling Cardiovascular Cardiovascular: Denies chest pain, Reports syncope, Denies irregular heart rhythm, Denies lightheadedness, Denies palpitations, Denies dyspnea, Denies dyspnea on exertion and Denies orthopnea Respiratory Respiratory: Denies cough, Denies dyspnea, Denies dyspnea on exertion and Denies wheezing Gastrointestinal Gastrointestinal: Reports abdominal pain, Denies change in bowel habits, Reports diarrhea, Denies nausea and Denies vomiting Genitourinary Genitourinary: Denies hematuria, Denies flank pain, Denies urinary incontinence and Denies urinary urgency Musculoskeletal Musculoskeletal: Denies back pain, Denies muscle weakness, Denies neck pain, Denies numbness and Denies tingling Integumentary/Breasts Skin/Breast: Denies pruritus, Denies erythema, Denies rash and Denies wounds Neurologic Neurologic: Denies behavioral changes, Denies confusion, Denies dizziness, Reports syncope, Denies frequent falls, Denies loss of vision, Denies numbness, Denies tingling and Denies weakness Psychiatric Psychiatric: Denies anxiety, Denies behavioral changes, Denies confusion, Denies depression, Denies homicidal ideation and Denies suicidal ideation Endocrine Endocrine: Denies fatigue, Denies flushing and Denies palpitations Hematologic/Lymphatic Hematologic/Lymphatic: Denies easy bruising Allergic/Immunologic Allergic/Immunologic: Denies urticaria, Denies throat swelling and Denies wheezing Patient History Medical History Atrial fibrillation (Acute) Congestive heart failure (Acute) Hypertension (Acute) Parkinsons (Acute) Surgical History No pertinent past surgical history (Acute) Social History Smoking Status: Former smoker Smoking Status: Former smoker alcohol intake frequency: holidays/special occasions only Substance Use Type: does not use Exam Narrative Exam Narrative: GENERAL: [79] year old patient appears stated age. Well-nourished, well-developed patient, in mild distress. HEAD: Atraumatic. Normocephalic. EYES: Pupils equal round and reactive. Extraocular motions intact. No scleral icterus. No injection or drainage. ENT: Nose without bleeding, purulent drainage. Throat without erythema, tonsillar hypertrophy or exudate. Airway patent. NECK: Trachea midline. Non tender CARDIOVASCULAR: Regular rate and rhythm without murmurs, gallops, or rubs. RESPIRATORY: Clear to auscultation. Breath sounds equal bilaterally. No wheezes, rales, or rhonchi. GASTROINTESTINAL: Abdomen soft, non-tender, nondistended. Increased bowel sounds EXTREMITIES: No edema or joint tenderness. BACK: Nontender without deformity or crepitance. No flank tenderness. NEURO: AOx3. SKIN: No rash or erythema of visible areas Initial Vital Signs Initial Vital Signs: Vital Signs Temperature 97.8 F 12/28/19 22:36 Pulse Rate 58 L 12/28/19 22:36 Respiratory Rate 18 12/28/19 22:36 Blood Pressure 185/79 H 12/28/19 22:36 Pulse Oximetry 99 12/28/19 22:36 Course Orders Ordered: ED Orders 12/28/19 22:36 XR abdomen 1V Stat EKG-12 Lead Stat 12/28/19 22:37 XR chest 1V Stat 12/28/19 22:40 Complete Blood Count AUTO DIFF Stat Comprehensive Metabolic Panel Stat Troponin & CK Cardiac Panel Stat 12/28/19 22:55 GI Panel (Film Array) Stat Discontinued Medications Sodium Chloride (Normal Saline 0.9%) 1,000 mls @ 150 mls/hr IV CONT TC Last Infusion: 12/29/19 01:17 Dose: 0 mls/hr Documented by: Admin: 12/28/19 23:16 Dose: 150 mls/hr Documented by: JAKOB Vital Signs Vital signs: Vital Signs - 8 hr 12/28/19 23:30 12/29/19 00:30 12/29/19 01:17 Pulse Rate 54 L 53 L Pulse Rate [Orthostatic Lying] 63 Pulse Rate [Orthostatic Sitting] 77 Pulse Rate [Orthostatic Standing] 79 Respiratory Rate 17 16 Blood Pressure Blood Pressure [Left Arm] 148/65 H 127/58 L Blood Pressure [Orthostatic Lying] 154/67 H Blood Pressure [Orthostatic Sitting] 128/72 Blood Pressure [Orthostatic Standing] 147/66 H Pulse Oximetry 97 99 12/29/19 01:19 Pulse Rate 56 L Pulse Rate [Orthostatic Lying] Pulse Rate [Orthostatic Sitting] Pulse Rate [Orthostatic Standing] Respiratory Rate 16 Blood Pressure 155/69 H Blood Pressure [Left Arm] Blood Pressure [Orthostatic Lying] Blood Pressure [Orthostatic Sitting] Blood Pressure [Orthostatic Standing] Pulse Oximetry 99 MDM - Syncope Lab Data Result diagrams: 12/28/19 22:40 12/28/19 22:40 Labs: Lab Results 12/28/19 12/28/19 12/28/19 Range/Units 22:40 22:40 22:55 WBC 8.4 (4.5-11.0) X10^3/uL RBC 4.50 (4.5-5.9) X10^6/uL Hgb 13.7 (13.5-17.5) g/dL Hct 40.4 L (41-53) % MCV 89.7 (80-100) fL MCH 30.4 (26-34) PG MCHC 33.9 (30-36) % RDW 14.5 (11.6-14.8) % Plt Count 208 (150-400) X10^3/uL Neut % (Auto) 69.7 (50-75) % Lymph % (Auto) 15.3 L (25-40) % [place] % (Auto) 9.5 (3-14) % Eos % (Auto) 3.8 (2-4) % Baso % (Auto) 1.7 (0-2) % Neut # (Auto) 5800 (7294-5445) /uL Lymph # (Auto) 1300 (2745-4847) /uL [place] # (Auto) 800 (0-900) /uL Eos # (Auto) 300 (0-450) /uL Baso # (Auto) 100 (0-100) /uL Sodium 140 (137-145) mmol/L Potassium 3.4 (3.4-5.1) mmol/L Chloride 97 L (98-107) mmol/L Carbon Dioxide 35 H (22-32) mmol/L BUN 26 H (9-20) mg/dL Creatinine 1.40 H (0.66-1.25) mg/dL Estimated GFR 48.6 L (>60) mL/min BUN/Creatinine Ratio 18.6 (6-22) Glucose 159 H (80-110) mg/dL Calcium 9.5 (8.4-10.2) mg/dL Total Bilirubin 0.6 (0.2-1.3) mg/dL AST 28 (17-59) IU/L ALT 5 (<50) IU/L Alkaline Phosphatase 86 (38-126) U/L Total Creatine Kinase 45 L (55-170) U/L CK-MB (CK-2) TNP CK-MB (CK-2) Rel Index TNP Troponin I < 0.012 (0.01-0.034) ng/mL Total Protein 7.9 (6.3-8.2) g/dL Albumin 4.2 (3.5-5.0) g/dL Globulin 3.7 (1.7-4.1) g/dL Albumin/Globulin Ratio 1.1 (1.0-2.8) Stl C. cayetanensis PCR Not detected (Not Detect) Stool Rotavirus (PCR) Not detected (Not Detect) Stool Adenovirus (PCR) Not detected (Not Detect) Stool Astrovirus (PCR) Not detected (Not Detect) Stool Cryptosporidium PCR Not detected (Not Detect) Stl E.coli Shiga Tox PCR Not detected (Not Detect) St Sh/Enteroin Ecoli PCR Not detected (Not Detect) Stool E coli O157 PCR Not Reportable Stl Enterotoxigenic E PCR Not detected (Not Detect) Stool EPEC (PCR) Not detected (Not Detect) Stl E. histolytica PCR Not detected (Not Detect) Stool Giardia Lamblia PCR Not detected (Not Detect) Stool Sapovirus (PCR) Not detected (Not Detect) Stl P. shigelloides PCR Not detected (Not Detect) St Y.enterocolitica PCR Not detected (Not Detect) Stool Vibrio (PCR) Not detected (Not Detect) Stl Vibrio cholerae PCR Not detected (Not Detect) Stl Enteroaggr Ecoli PCR Not detected (Not Detect) Stl Norovirus GI/GII PCR Not detected (Not Detect) Campylobacter (PCR) Not detected (Not Detect) C. difficile Tox (PCR) Not detected (Not Detect) Salmonella (PCR) Not detected (Not Detect) MDM Narrative Medical decision making narrative: 79-year-old male presents with near-syncope and return to baseline prior to his arrival. Patient initially stated that his near syncope happened at the onset of some abdominal pain while sitting in his chair, however once his arrived she states that he had attempted to get out of his chair and this is when his symptoms started. Patient's exam and labs are reassuring. He is given IV fluids, has unremarkable orthostatic vital signs and feels quite well. We did discuss observation in the hospital versus discharge home and close follow-up and both he and would highly prefer to go home. They understand the risks and benefits of this decision and have been given return precautions. They had their questions answered to their apparent satisfaction. Discharge Plan Departure Patient Disposition: Home Clinical Impression: Vasovagal syncope, Syncope due to orthostatic hypotension Discharge Date/Time: 12/29/19 01:20 Instructions: DI for Syncope in Adults (Fainting) Activity Restrictions/Additional Instructions: *You have been diagnosed with [ syncope ] *What to do: *Continue to take medications as directed *Follow up with your primary care provider in 2-3 days, call for an appointment. Let them know you were seen in the Emergency Department and that we ask that you be seen in follow up *Return to ER if you should have any new, worsening or concerning symptoms Prescriptions: No Action tolterodine [Detrol LA] 2 mg capsule,extended release 24hr 2 mg PO DAILY RF: 0 bumetanide 2 mg tablet 2 mg PO QAM RF: 0 metoprolol succinate [Toprol XL] 50 mg tablet extended release 24 hr 25 tab PO DAILY RF: 0 docusate calcium [Stool Softener] 240 mg capsule 1 - 2 cap PO DAILY RF: 0 carbidopa-levodopa 50-200 mg tablet extended release 3 tab PO TID RF: 0 potassium chloride [Klor-Con 10] 10 mEq tablet extended release 10 meq PO BID RF: 0 ranitidine HCl 150 mg tablet 150 mg PO BID RF: 0 ketoconazole 2 % cream 1 applic Topical DIRECTED RF: 0 selegiline HCl 5 mg capsule 5 mg PO BID RF: 0 sennosides [senna] 8.6 mg Tablet 1 tab PO BID RF: 0 bumetanide 2 mg tablet 1 mg PO QPM RF: 0 aspirin 81 mg Tablet,Delayed Release (Dr/Ec) 81 mg PO QPM RF: 0 cholecalciferol (vitamin D3) [Vitamin D3] 1,000 unit Tablet 1,000 unit PO DAILY RF: 0 One-A-Day Men's Multivitamin 1 tab PO DAILY RF: 0 warfarin [Coumadin] 5 mg tablet RF: 0 Referrals: Linda Scott MD [Primary Care Provider] -
[2019-12-28 22:48] LABS: Add Manual Diff / Slide Review NO; Basophils Absolute Auto 100 /uL (0-100); Basophils Percent Auto 1.7 % (0-2); Eosinophils Absolute Auto 300 /uL (0-450); Eosinophils Percent Auto 3.8 % (2-4); Hematocrit 40.4 % (41-53); Hemoglobin 13.7 g/dL (13.5-17.5); Lymphocytes Absolute Auto 1300 /uL (1100-4500); Lymphocytes Percent Auto 15.3 % (25-40); Mean Corpuscular HGB Conc 33.9 % (30-36); Mean Corpuscular Hemoglobin 30.4 PG (26-34); Mean Corpuscular Volume 89.7 fL (80-100); Monocytes Absolute Auto 800 /uL (0-900); Monocytes Percent Auto 9.5 % (3-14); Neutrophils Absolute Auto 5800 /uL (1500-7000); Neutrophils Percent Auto 69.7 % (50-75); Platelet Count 208 X10^3/uL (150-400); Red Cell Distribution Width 14.5 % (11.6-14.8); White Blood Cell Count 8.4 X10^3/uL (4.5-11.0)
--- NOTE | 2019-12-28 23:02 | PC.NURSE ---
Patient had large liquid bowel movement in depends and on bed. Specimen obtained. bed linens and depends changed, elysia care performed.
--- NOTE | 2019-12-28 23:03 | PC.NURSE ---
Patient reports he awoke with abdominal pain and cramping, he had a near syncopal episode with sweating, nausea, light headedness in which he lowered himself to the ground. States he was incontinent to diarrhea stool. EMS arrived and had initial BP of 60 systolic. Now normal BP. Having continued diarrhea and abdominal cramping.
[2019-12-28] MEDS: SODIUM CHLORIDE 0.9% 1,000 ML 150 ML IV (23:16)
[2019-12-28 23:17] LABS: Alanine Aminotransferase 5 IU/L (<50); Albumin 4.2 g/dL (3.5-5.0); Albumin Globulin Ratio 1.1 (1.0-2.8); Alkaline Phosphatase 86 U/L (38-126); Aspartate Aminotransferase 28 IU/L (17-59); BUN Creatinine Ratio 18.6 (6-22); Bilirubin Total 0.6 mg/dL (0.2-1.3); Blood Urea Nitrogen 26 mg/dL (9-20); Calcium 9.5 mg/dL (8.4-10.2); Carbon Dioxide 35 mmol/L (22-32); Chloride 97 mmol/L (98-107); Creatine Kinase 45 U/L (55-170); Estimated Glomerular Filt Rate 48.6 mL/min (>60); Globulin 3.7 g/dL (1.7-4.1); Glucose 159 mg/dL (80-110); HEMOLYSIS < 15 (0-50); Potassium 3.4 mmol/L (3.4-5.1); Sodium 140 mmol/L (137-145); Total Protein 7.9 g/dL (6.3-8.2)
[2019-12-28 23:29] LABS: Troponin I < 0.012 ng/mL (0.01-0.034)
[2019-12-28 23:30] VITALS: BP 148/65; PULSE 54; RESP 17; O2SAT 97
[2019-12-29 00:30] VITALS: BP 127/58; PULSE 53; RESP 16; O2SAT 99
[2019-12-29 00:33] LABS: Adenovirus F 40/41 Not Detected (Not Detect); Astrovirus Not Detected (Not Detect); Clostridium difficile toxin AB Not Detected (Not Detect); Cryptosporidium Not Detected (Not Detect); Cyclospora cayetanensis Not Detected (Not Detect); Entamoeba histolytica Not Detected (Not Detect); Enteroaggregative E.coli Not Detected (Not Detect); Enteropathogenic E.coli Not Detected (Not Detect); Enterotoxigenic E.coli It/st Not Detected (Not Detect); Giardia lamblia Not Detected (Not Detect); Norovirus GI/GII Not Detected (Not Detect); Plesiomonsa shigelloides Not Detected (Not Detect); Rotavirus A Not Detected (Not Detect); Salmonella Not Detected (Not Detect); Sapovirus Not Detected (Not Detect); Shiga-like toxin-prod E.coli Not Detected (Not Detect); Shigella/Enteroinvasive E.coli Not Detected (Not Detect); Vibrio Not Detected (Not Detect); Vibrio cholerae Not Detected (Not Detect); Yersinia enterocolitica Not Detected (Not Detect)
[2019-12-29 00:44] LABS: Campylobacter Not Detected (Not Detect)
[2019-12-29 01:17] VITALS: BP 128/72; BP 147/66; BP 154/67; PULSE 63; PULSE 77; PULSE 79
[2019-12-29 01:19] VITALS: BP 155/69; PULSE 56; RESP 16; O2SAT 99
== END 2019-12-29 01:20 | disposition home or self-care (01) ==
PROVIDERS: Emergency Provider Emergency Medicine; PCP Family Medicine
DX: R55 Syncope and collapse (principal); I95.9 Hypotension, unspecified; R10.9 Unspecified abdominal pain; R19.7 Diarrhea, unspecified; G20 Parkinson's disease
CPT/HCPCS: 36415; 71045; 74018; 80053; 82550; 82553; 84484; 85025; 87507; 93005; 96360; 96361; 99284; 99285

== ENCOUNTER 2019-12-29 11:33 | Observation (INO) | payer MEDICARE, OTHER, SELFPAY ==
[2019-12-29] VITALS (7 sets, daily range): BP systolic 140–174; BP diastolic 61–82; PULSE 55–67; RESP 13–22; TEMP 36.1–37.1; O2SAT 96–99; BMI 27.3
[2019-12-29 12:38] LABS: Add Manual Diff / Slide Review NO; Basophils Absolute Auto 0 /uL (0-100); Basophils Percent Auto 0.3 % (0-2); Eosinophils Absolute Auto 200 /uL (0-450); Eosinophils Percent Auto 2.5 % (2-4); Hematocrit 39.9 % (41-53); Hemoglobin 13.3 g/dL (13.5-17.5); Lymphocytes Absolute Auto 1400 /uL (1100-4500); Lymphocytes Percent Auto 16.5 % (25-40); Mean Corpuscular HGB Conc 33.4 % (30-36); Mean Corpuscular Hemoglobin 29.9 PG (26-34); Mean Corpuscular Volume 89.5 fL (80-100); Monocytes Absolute Auto 900 /uL (0-900); Monocytes Percent Auto 11.3 % (3-14); Neutrophils Absolute Auto 5800 /uL (1500-7000); Neutrophils Percent Auto 69.4 % (50-75); Platelet Count 200 X10^3/uL (150-400); Red Blood Cell Count 4.46 X10^6/uL (4.5-5.9); White Blood Cell Count 8.3 X10^3/uL (4.5-11.0)
[2019-12-29 12:42] LABS: Prothrombin Time 23.2 SECONDS (10.1-12.7)
[2019-12-29 12:45] LABS: PTT Partial Thromboplastin Tim 37 SECONDS (26.4-36.2)
[2019-12-29 12:47] LABS: Alanine Aminotransferase 4 IU/L (<50); Albumin 4.2 g/dL (3.5-5.0); Albumin Globulin Ratio 1.2 (1.0-2.8); Alkaline Phosphatase 83 U/L (38-126); Aspartate Aminotransferase 24 IU/L (17-59); BUN Creatinine Ratio 19.3 (6-22); Bilirubin Total 0.6 mg/dL (0.2-1.3); Blood Urea Nitrogen 27 mg/dL (9-20); Calcium 9.5 mg/dL (8.4-10.2); Carbon Dioxide 31 mmol/L (22-32); Chloride 98 mmol/L (98-107); Estimated Glomerular Filt Rate 48.6 mL/min (>60); Globulin 3.6 g/dL (1.7-4.1); Glucose 107 mg/dL (80-110); HEMOLYSIS < 15 (0-50); Potassium 3.3 mmol/L (3.4-5.1); Sodium 138 mmol/L (137-145); Total Protein 7.8 g/dL (6.3-8.2)
--- NOTE | 2019-12-29 12:57 | ED.GIBLEED ---
HPI - GI Bleed General Chief complaint: GI Bleed Stated complaint: blood released from rectal area Time Seen by Provider: 12/29/19 12:56 Source: patient Mode of arrival: Family Vehicle History of Present Illness HPI Narrative: CC: Rectal Bleeding HPI: The patient is a 79-year-old male who states that he was seen last night in the emergency department and evaluated for dizziness and sent home. After waking up at 3:00 a.m. in the morning he developed rectal bleeding and noticed bright red blood in his underwear. He went back to bed and woke up later this morning and while sitting on the toilet had a bloody bowel movement that was grossly bloody in the toilet. He complained that he had some mild lower abdominal pain and his left abdomen. He denied being dizziness lightheaded or passing out. He admits to a history of Parkinson's disease. He states last night his heart rate was slow and his blood pressure was low and he was dizzy but discharged home. He denied any chest pain or shortness of breath. This morning he had nausea but no vomiting. He has an artificial 6 sphincter for prostate cancer. He denies a history of fever chills and sweats or back pain as well as any chest pain. He admits to a history of atrial fibrillation on warfarin. Related Data Home Medications Medication Instructions Recorded Confirmed aspirin 81 mg PO QPM 07/24/18 12/29/19 bumetanide 2 mg PO BID 07/24/18 12/29/19 carbidopa-levodopa 1.5 tab PO TID 07/24/18 12/29/19 cholecalciferol (vitamin D3) 1,000 unit PO DAILY 07/24/18 12/29/19 [Vitamin D3] docusate calcium [Stool Softener] 1 cap PO BID 07/24/18 12/29/19 metoprolol succinate [Toprol XL] 25 mg PO DAILY 07/24/18 12/29/19 potassium chloride [Klor-Con 10] 10 meq PO BID 07/24/18 12/29/19 selegiline HCl 5 mg PO BID 07/24/18 12/29/19 sennosides [senna] 1 tab PO PRN PRN 07/24/18 12/29/19 tolterodine [Detrol LA] 2 mg PO DAILY 07/24/18 12/29/19 warfarin [Coumadin] 5 mg PO DAILY 02/05/19 12/29/19 famotidine [Pepcid] mg PO DAILY 12/29/19 nitroglycerin 0.4 mg SUBLINGUAL Q5-15M PRN 12/29/19 12/29/19 warfarin See Rx Instructions .ROUTE .COMPLEX 12/29/19 12/29/19 Allergies Allergy/AdvReac Type Severity Reaction Status Date / Time penicillin G Allergy Swelling Verified 07/24/18 12:22 of Lip/Tongue/Throat hydrochlorothiazide AdvReac Verified 07/24/18 12:22 lisinopril AdvReac Cough Verified 07/24/18 12:22 simvastatin [From Zocor] AdvReac Weakness Verified 07/24/18 12:22 Review of Systems Review of Systems Narrative: His review of systems were all negative except for those mentioned in the history of present illness. Patient History Surgical History No pertinent past surgical history (Acute) Social History household members: spouse Smoking Status: Former smoker alcohol intake: current Smoking Status: Former smoker alcohol intake frequency: holidays/special occasions only Substance Use Type: does not use Exam Narrative Exam Narrative: PHYSICAL EXAM: I looked at the patient's underwear and it was grossly bloody with a significant amount of blood. CONSTITUTIONAL: Awake, Alert, Oriented, Coherent, Cooperative in NAD. Bradykinetic and moving slowly. HEAD: AT/NC EENT: PERRL, FROM of eyes, no discharge, no nystagmus No epistaxis or nasal drainage Oral mucosa is moist and pink, posterior pharynx is without erythema or exudate. NECK: Supple, no obvious JVD, Trachea is midline without stridor, no palpable LN . SPINE: No gross deformity, no palpable tenderness of the cervical, thoracic, lumbar or sacral spine. No CVA tenderness. THORAX: No deformity, retractions, chest wall tenderness, subcutaneous air or crepitice. LUNGS: Breath sounds are decreased bilaterally but clear and symmetrical. HEART: Normal heart tones, regular rhythm and rate without murmur. ABDOMEN: Soft, essentially nontender. There was some slight tenderness in the left lower quadrant but no guarding rebound or rigidity. EXTREMITIES: No edema, cyanosis, deformity or tenderness. SKIN: No rash, bruising, petechiae or purpura. NEURO: Awake, alert, oriented, conversive, no focal facial asymmetry, cranial nerves II-XII are symmetrical, masked face a rigid facial expression. He slowly moves all 4 extremities. Initial Vital Signs Initial Vital Signs: Vital Signs Temperature 97.8 F 12/29/19 11:43 Pulse Rate 64 12/29/19 11:43 Respiratory Rate 22 12/29/19 11:43 Blood Pressure 170/73 H 12/29/19 11:43 Pulse Oximetry 97 12/29/19 11:43 Course Course Course Narrative: [address] of his abdomen reveals no acute pathology to explain his rectal bleeding according to the radiologist. Will call and discuss it with . [address] Ye who has agreed to consult and watch the patient and perform a colonoscopy after his INR is normal eyes. He would like us to administer 5 mg of vitamin K for his Coumadin therapy and INR of 2.0. 1539: I discussed this patient with Dr. Pena who accepted the patient being admitted observation status. She was informed that the rectal exam revealed bloody mucus a very lax rectal sphincter with questionable external hemorrhoids not actively bleeding. The patient will be admitted observation status put placed on telemetry. Orders Ordered: ED Orders 12/29/19 11:47 EKG-12 Lead Stat 12/29/19 12:20 Complete Blood Count AUTO DIFF Stat Comprehensive Metabolic Panel Stat Partial Thromboplastin Time Stat Prothrombin Time INR Stat Type and Screen Stat 12/29/19 13:13 CT abdomen pelvis w con Stat Acetaminophen (Tylenol) 650 mg PO Q6HR PRN PRN Reason: Fever/Mild Pain (1-3) Al Hydrox/Mg Hydrox/Simethicone (Maalox Plus) 30 ml PO Q6HR PRN PRN Reason: Dyspepsia Calcium Carbonate (Tums) 1,000 mg PO Q4HR PRN PRN Reason: Dyspepsia Magnesium Hydroxide (Milk Of Magnesia) 30 ml PO DAILY PRN PRN Reason: Constipation Naloxone HCl (Narcan) 0.2 mg IV Q2MIN PRN PRN Reason: Opiate Reversal Ondansetron HCl (Zofran) 4 mg IV Q8HR PRN PRN Reason: Nausea And Vomiting Discontinued Medications Phytonadione 5 mg/ Dextrose 50.5 mls @ 101 mls/hr IV NOW ONE Stop: 12/29/19 14:41 Last Infusion: 12/29/19 16:07 Dose: 0 mls/hr Documented by: Admin: 12/29/19 15:52 Dose: 101 mls/hr Documented by: BELTRAN Vital Signs Vital signs: Vital Signs - 8 hr 12/29/19 12:41 12/29/19 13:30 Pulse Rate 55 L 61 Respiratory Rate 13 16 Blood Pressure [Left Arm] 140/67 168/63 H Pulse Oximetry 99 97 MDM - GI Bleed Medical Records Attestation: I reviewed the patient's medical records. Lab Data Attestation: I reviewed the patient's lab results. Result diagrams: 12/29/19 12:20 12/29/19 12:20 Labs: Lab Results 12/29/19 12/29/19 12/29/19 Range/Units 12:20 12:20 12:20 WBC 8.3 (4.5-11.0) X10^3/uL RBC 4.46 L (4.5-5.9) X10^6/uL Hgb 13.3 L (13.5-17.5) g/dL Hct 39.9 L (41-53) % MCV 89.5 (80-100) fL MCH 29.9 (26-34) PG MCHC 33.4 (30-36) % RDW 15.0 H (11.6-14.8) % Plt Count 200 (150-400) X10^3/uL Neut % (Auto) 69.4 (50-75) % Lymph % (Auto) 16.5 L (25-40) % [place] % (Auto) 11.3 (3-14) % Eos % (Auto) 2.5 (2-4) % Baso % (Auto) 0.3 (0-2) % Neut # (Auto) 5800 (3720-7902) /uL Lymph # (Auto) 1400 (3879-4139) /uL [place] # (Auto) 900 (0-900) /uL Eos # (Auto) 200 (0-450) /uL Baso # (Auto) 0 (0-100) /uL PT 23.2 H (10.1-12.7) SECONDS INR 2.0 H (0.9-1.3) APTT 37 H D (26.4-36.2) SECONDS Sodium 138 (137-145) mmol/L Potassium 3.3 L (3.4-5.1) mmol/L Chloride 98 (98-107) mmol/L Carbon Dioxide 31 (22-32) mmol/L BUN 27 H (9-20) mg/dL Creatinine 1.40 H (0.66-1.25) mg/dL Estimated GFR 48.6 L (>60) mL/min BUN/Creatinine Ratio 19.3 (6-22) Glucose 107 (80-110) mg/dL Calcium 9.5 (8.4-10.2) mg/dL Total Bilirubin 0.6 (0.2-1.3) mg/dL AST 24 (17-59) IU/L ALT 4 (<50) IU/L Alkaline Phosphatase 83 (38-126) U/L Total Protein 7.8 (6.3-8.2) g/dL Albumin 4.2 (3.5-5.0) g/dL Globulin 3.6 (1.7-4.1) g/dL Albumin/Globulin Ratio 1.2 (1.0-2.8) Blood Type Antibody Screen 12/29/19 Range/Units 12:20 WBC (4.5-11.0) X10^3/uL RBC (4.5-5.9) X10^6/uL Hgb (13.5-17.5) g/dL Hct (41-53) % MCV (80-100) fL MCH (26-34) PG MCHC (30-36) % RDW (11.6-14.8) % Plt Count (150-400) X10^3/uL Neut % (Auto) (50-75) % Lymph % (Auto) (25-40) % [place] % (Auto) (3-14) % Eos % (Auto) (2-4) % Baso % (Auto) (0-2) % Neut # (Auto) (2159-7711) /uL Lymph # (Auto) (6425-4568) /uL [place] # (Auto) (0-900) /uL Eos # (Auto) (0-450) /uL Baso # (Auto) (0-100) /uL PT (10.1-12.7) SECONDS INR (0.9-1.3) APTT (26.4-36.2) SECONDS Sodium (137-145) mmol/L Potassium (3.4-5.1) mmol/L Chloride (98-107) mmol/L Carbon Dioxide (22-32) mmol/L BUN (9-20) mg/dL Creatinine (0.66-1.25) mg/dL Estimated GFR (>60) mL/min BUN/Creatinine Ratio (6-22) Glucose (80-110) mg/dL Calcium (8.4-10.2) mg/dL Total Bilirubin (0.2-1.3) mg/dL AST (17-59) IU/L ALT (<50) IU/L Alkaline Phosphatase (38-126) U/L Total Protein (6.3-8.2) g/dL Albumin (3.5-5.0) g/dL Globulin (1.7-4.1) g/dL Albumin/Globulin Ratio (1.0-2.8) Blood Type A Positive Antibody Screen Negative Point of Care Testing Stool Occult Blood Positive ECG Data Attestation: I personally reviewed and interpreted this ECG as follows: Interpretation: The patient's EKG obtained on December 29 at 12:0 3:48 a.m. reveals atrial fibrillation with slow ventricular rate. Her is ventricular rate is 58. QRS is prolonged at 104 milliseconds axis is normal. The patient has a Q-wave in lead III and a QS wave in lead V1 and V2. T-waves are flat in lead III and upright in lead V1 and V2. The patient has nonspecific ST segment changes. The patient has evidence of a septal infarct with the QS low waves in V1 and V2 age indeterminate. There are no acute ST segment changes to suggest acute ischemia or an acute injury pattern. Discharge Plan Departure Patient Disposition: Admitted as Observation Clinical Impression: Bright red rectal bleeding, Parkinson's disease, History of atrial fibrillation, History of warfarin therapy Discharge Date/Time: 12/29/19 16:05 Admit Date/Time: 12/29/19 15:39 Admit Provider: Goldie Pena
--- NOTE | 2019-12-29 13:13 | DI.CT.S_ITS ---
PROCEDURE: CT ABDOMEN PELVIS W CON INDICATIONS: Gross rectal bleeding in underwear, mild LLQ tenderness TECHNIQUE: After the administration of intravenous contrast, 5 mm thick sections acquired from the diaphragm to the symphysis. 5 mm coronal and sagittal reformats were acquired. For radiation dose reduction, the following was used: automated exposure control, adjustment of mA and/or kV according to patient size. COMPARISON: [facility], CR, XR CHEST 1V, 12/28/2019, 22:51. [facility], CR, XR ABDOMEN 1V, 12/28/2019, 22:51. FINDINGS: Image quality: Excellent. ABDOMEN: Lung bases: Lung bases are clear. Heart size is mildly enlarged. Solid organs: Liver is normal in size and enhancement. A 7 mm presumed cyst is seen within the central liver, as on series 2 image 25. Gallbladder wall does not appear thickened. Biliary system is non dilated. Pancreas enhances normally. Spleen is normal in size and enhancement. No adrenal nodules. Kidneys demonstrate normal size and enhancement, without hydronephrosis. There is a partially calcified lesion involving the anterior right kidney, as on series 2 image 38. This has the appearance of focal volume loss. Peritoneum and bowel: In this patient with this given history, scrutiny is given to the sigmoid colon and to the rectum. Within these regions, no cass masses can be seen. No diverticula or inflammatory change are seen. Bowel loops demonstrate normal wall thickness and caliber. No free fluid or air. Nodes and vessels: No retroperitoneal or mesenteric adenopathy by size criteria. Aorta and inferior vena cava are normal in size. Relatively prominent atherosclerotic calcification can be seen, including involving the iliac arteries and the renal arteries. Miscellaneous: No ventral hernias. PELVIS: Genitourinary: Bladder wall thickness is normal. The urinary bladder is distended. Prostatectomy change is seen, with numerous lymph node dissection clips. Miscellaneous: No enlarged inguinal or pelvic lymph nodes are seen. There is a fat-containing right inguinal hernia seen. There is partial visualization of a penile implant. Bones: No suspicious bony lesions. S-shaped scoliotic curvature is seen. Degenerative changes are seen throughout, which are most prominent at the L1-L2 level and at the L5-S1 level. IMPRESSION: No significant abnormality can be seen involving the distal colon to explain the patient's presenting symptoms. Distended urinary bladder. Please correlate with bladder outlet obstruction/urinary retention. Focal volume loss with calcification seen involving the anterior right kidney. Incidental note is made of: Mild cardiomegaly Liver cyst Atherosclerotic calcification Prostatectomy with lymph node dissection clips Fat-containing right inguinal hernia Penile implant partially seen Dictated by: Eduardo Dawkins M.D. on 12/29/2019 at 13:15 Approved by: Eduardo Dawkins M.D. on 12/29/2019 at 13:22
--- NOTE | 2019-12-29 13:15 | PC.NURSE ---
gross blood in stool reported by provider after chapperone for rectal exam
[2019-12-29] MEDS: PHYTONADIONE (VIT K1) 5 MG in DEXTROSE 5 % IN WATER 50 ML 101 ML IV (15:52)
--- NOTE | 2019-12-29 16:08 | PC.NURSE ---
vitamin K to continue in acute care.
--- NOTE | 2019-12-29 22:15 | P.HP_ITS ---
History of Present Illness History of Present Illness Date Patient Seen: 12/29/19 Time Patient Seen: 22:15 Chief complaint: blood released from rectal area Narrative: Patient is an 79-year-old male with PMH of Parkinson's disease, HTN, AFIB (on warfarin AC), HF, prior tobacco dependence, and prostate cancer (s/p insertion of an artificial sphincter) Patient woke up at 3:00 a.m. on 12/29 with rectal bleeding. Specifically, patient noticed bright red blood in his underwear. In the morning he had a mucoid bright red stool. Reports a total of 2 episodes of hematochezia prior to ED presentation. Associated symptoms include mild abdominal pain localized to the left lower quadrant of the abdomen with defecation only and nausea without emesis. Day prior patient was seen at [facility] for dizziness, hypotension, and bradycardia. Patient reports having an acute cardiac workup that was negative, consequently he was discharged home. No prior history rectal bleeding. Patient is anticoagulated with warfarin for underlying atrial fibrillation. INR 2.0 on presentation. Also, known to have underlying GERD. On ranitidine for many years, however, was changed to famotidine 2-3 weeks ago. General surgery was notified patient's case by ED department. Dr. Ye agreed to consult with a plan to pursue colonoscopy once patient's INR has stabilized. Patient received 5 mg of Vitamin K. Patient History Medical History Atrial fibrillation (Acute) Congestive heart failure (Acute) Hypertension (Acute) Parkinsons (Acute) Surgical History No pertinent past surgical history (Acute) Family & Social History Social History: household members spouse Prior Living Arrangements House Safety & Behavioral: Feels Safe in Current Yes Environment Been Physically Hurt or No Threatened By a Person Suicidal Ideation Description None Suicide Plan Description No Plan Tobacco & Substance use: Smoking Status Former smoker, quit 35 years ago alcohol intake current alcohol intake frequency holiday/special occasion Substance Use Type does not use Meds Home Medications and Allergies Home Medications Medication Instructions Recorded Confirmed Type aspirin 81 mg PO QPM 07/24/18 12/29/19 History bumetanide 2 mg PO BID 07/24/18 12/29/19 History carbidopa-levodopa 1.5 tab PO TID 07/24/18 12/29/19 History cholecalciferol (vitamin D3) 1,000 unit PO DAILY 07/24/18 12/29/19 History [Vitamin D3] docusate calcium [Stool Softener] 1 cap PO BID 07/24/18 12/29/19 History metoprolol succinate [Toprol XL] 25 mg PO DAILY 07/24/18 12/29/19 History potassium chloride [Klor-Con 10] 10 meq PO BID 07/24/18 12/29/19 History selegiline HCl 5 mg PO BID 07/24/18 12/29/19 History sennosides [senna] 1 tab PO PRN PRN 07/24/18 12/29/19 History tolterodine [Detrol LA] 2 mg PO DAILY 07/24/18 12/29/19 History warfarin [Coumadin] 5 mg PO DAILY 02/05/19 12/29/19 History famotidine [Pepcid] mg PO DAILY 12/29/19 History nitroglycerin 0.4 mg SUBLINGUAL Q5-15M PRN 12/29/19 12/29/19 History warfarin See Rx Instructions .ROUTE .COMPLEX 12/29/19 12/29/19 History Allergies Allergy/AdvReac Type Severity Reaction Status Date / Time penicillin G Allergy Swelling Verified 07/24/18 12:22 of Lip/Tongue/Throat hydrochlorothiazide AdvReac Verified 07/24/18 12:22 lisinopril AdvReac Cough Verified 07/24/18 12:22 simvastatin [From Zocor] AdvReac Weakness Verified 07/24/18 12:22 Review of Systems Review of Systems ROS: Yes All systems reviewed with the patient and are negative except as otherwise documented Exam Vital Signs (past 8 hours): - 12/29/19 16:04 12/29/19 16:35 12/29/19 19:51 Temperature 96.9 F L 97.5 F L Pulse Rate 67 61 60 Respiratory Rate 18 16 Blood Pressure 161/71 H 174/82 H 162/61 H Pulse Oximetry 99 97 Oxygen Delivery Method Room Air Narrative Exam Narrative: Constitutional: NAD Neurologic: AOx3, no focal neurological deficits Head: NC, AT Eyes: PERRL, EOMI, Ears: external ears normal, no otorrhea Nose: external nose normal, no rhinorrhea or epistaxis Throat: MMM, oropharynx w/o exudate Neck: no masses, lymphadenopathy, or JVD Chest / Respiratory: Breath sounds diminished bilaterally, unlabored respiratory effort, on room air Heart / CV: Irregularly irregular Abdomen / GI: soft, NT, ND, + BS, no organomegaly, right inguinal hernia : no suprapubic tenderness Peripheral / Vascular: warm to touch, DP and PT pulses palpable, b/l LE edema (2+ pitting, pretibial / ankle / foot) Musc: full ROM of upper and lower extremities, adequate muscle tone and bulk Skin: no ecchymosis or suspicious lesions / ulcers Objective Labs Result Diagrams: 12/30/19 04:50 12/29/19 12:20 Labs: Laboratory Results - last 24 hr 12/29/19 12/29/19 12/29/19 12:20 12:20 12:20 WBC 8.3 RBC 4.46 L Hgb 13.3 L Hct 39.9 L MCV 89.5 MCH 29.9 MCHC 33.4 RDW 15.0 H Plt Count 200 Neut % (Auto) 69.4 Lymph % (Auto) 16.5 L [place] % (Auto) 11.3 Eos % (Auto) 2.5 Baso % (Auto) 0.3 Neut # (Auto) 5800 Lymph # (Auto) 1400 [place] # (Auto) 900 Eos # (Auto) 200 Baso # (Auto) 0 PT 23.2 H INR 2.0 H APTT 37 H D Sodium 138 Potassium 3.3 L Chloride 98 Carbon Dioxide 31 BUN 27 H Creatinine 1.40 H Estimated GFR 48.6 L BUN/Creatinine Ratio 19.3 Glucose 107 Calcium 9.5 Total Bilirubin 0.6 AST 24 ALT 4 Alkaline Phosphatase 83 Total Protein 7.8 Albumin 4.2 Globulin 3.6 Albumin/Globulin Ratio 1.2 Blood Type Antibody Screen 12/29/19 12:20 WBC RBC Hgb Hct MCV MCH MCHC RDW Plt Count Neut % (Auto) Lymph % (Auto) [place] % (Auto) Eos % (Auto) Baso % (Auto) Neut # (Auto) Lymph # (Auto) [place] # (Auto) Eos # (Auto) Baso # (Auto) PT INR APTT Sodium Potassium Chloride Carbon Dioxide BUN Creatinine Estimated GFR BUN/Creatinine Ratio Glucose Calcium Total Bilirubin AST ALT Alkaline Phosphatase Total Protein Albumin Globulin Albumin/Globulin Ratio Blood Type A Positive Antibody Screen Negative Assessment & Plan Assessment & Plan narrative: Patient is being admitted under observation status for hematochezia. Hematochezia, acute, present on admission, active - CT A/P. No significant abnormality can be seen involving the distal colon to explain the patient's presenting symptoms. - Consult general surgery, Dr. Ye - Asymptomatic - Had x1 episode of hematochezia since coming to acute care floor - Plan for colonoscopy when INR is stable - Received 5 mg Vit K in ED, rechecking coags in am - Likely will need to start bowel prep in am Chronic warfarin anticoagulation, present on admission, active - INR 2.0, therapeutic - Will need to lower in order to do colonoscopy - Darfarin will be held at this time - Daily coags Heart failure, type unknown, present on admission, active/stable/compensated - Patient does have bilateral, 2+, pitting peripheral edema; however, no overt symptoms of decompensated heart failure - Continue PT regimen of Bumex 2 mg b.i.d. - Daily weights. Strict I&Os. - Monitor electrolytes PAF, chronic condition, present on admission, stable - On warfarin anticoagulation, currently on hold - Continue Toprol XL with hold parameters BPH w/ urinary retention, chronic condition, present on admission, stable - H/O prostate cancer s/p prostatectomy with lymph node clips, penile implant in place - Distended bladder on CT imaging, may need to straight cath if unable to void Parkinson's Disease, chronic condition, present on admission, stable - Resume PT regimen of carbidopa levodopa GERD w/o esophagitis, chronic condition, present on admission - Protonix 40 mg daily Code status discussed with patient. Full code. Patient reports having a formal health directive. Spouse is the designated DPOA. Home medications reviewed and reconciled accordingly. VTE prophylaxis with SCDs. Quality VTE Deep Vein Thrombosis/Pulmonary Embolism Present on Admission: No
--- NOTE | 2019-12-29 23:48 | PC.NURSE ---
Admit/Evening Shift Note- Patient arrived to room from ER via stretcher. Patient able to pivot transfer to bed with 2PA. Patient alert and oriented and able to make needs knwon to staff. Patient pleasent, calm, and cooperative with care. Admission questions done, home medications reviewed, and physical assessment completed. Oriented patient to bed and bed controls, room, lights, phone, menu, and call teague/tv remote. Skin check completed. Safety measures in place. Patient agrees to call for assistance. Bed alarm activated. Call teague and phone within reach. Will continue to monitor.
[2019-12-30] VITALS (8 sets, daily range): BP systolic 148–184; BP diastolic 63–83; PULSE 64–72; RESP 16–18; TEMP 36.4–36.8; O2SAT 95–96
[2019-12-30 05:09] LABS: Add Manual Diff / Slide Review NO; Basophils Absolute Auto 0 /uL (0-100); Basophils Percent Auto 0.2 % (0-2); Eosinophils Absolute Auto 300 /uL (0-450); Eosinophils Percent Auto 3.5 % (2-4); Hematocrit 36.9 % (41-53); Hemoglobin 12.4 g/dL (13.5-17.5); Lymphocytes Absolute Auto 1600 /uL (1100-4500); Lymphocytes Percent Auto 17.7 % (25-40); Mean Corpuscular HGB Conc 33.7 % (30-36); Mean Corpuscular Hemoglobin 30.1 PG (26-34); Mean Corpuscular Volume 89.5 fL (80-100); Monocytes Absolute Auto 900 /uL (0-900); Monocytes Percent Auto 10.5 % (3-14); Neutrophils Absolute Auto 6100 /uL (1500-7000); Neutrophils Percent Auto 68.1 % (50-75); Platelet Count 192 X10^3/uL (150-400); Red Blood Cell Count 4.12 X10^6/uL (4.5-5.9); Red Cell Distribution Width 14.4 % (11.6-14.8)
[2019-12-30 05:11] LABS: INR 1.6 (0.9-1.3); Prothrombin Time 18.2 SECONDS (10.1-12.7)
[2019-12-30] MEDS: SODIUM CHLORIDE 0.9% FLUSH 10 ML IV (09:31)
--- NOTE | 2019-12-30 10:34 | CM.DANOTE ---
DCP: Case received, EMR reviewed and checked on patient. He was sleeping, but , Katherin, was at bedside. Introduced self and role. Was able to speak to with patient to obtain information regarding patient's baseline activity level in the home. DCP assessment completed with information currently available. Patient is an 79 year old male who admitted yesterday afternoon to the care of the hospitalist team. PCP: Dr. Scott. Payer: confirmed: Medicare/[employer]. Patient came to the hospital via family vehicle secondary to rectal bleeding. Patient has history of parkinson's, a-fib, and prostate cancer. , Katherin, was at bedside, and patient was sleeping. Confirmed that she is patient's primary caregiver. They have been for 59 years. Patient no longer drives, and he uses a cane/walker, to get around. Patient holds current diagnosis of hematochezia. P: DCP to continue to follow and be available for any resources needed. Patient may benefit with home health. Will see how he does here in hospital. Marely Israel RN/Dental Laboratory Technician Apprentice
[2019-12-30] MEDS: BUMETANIDE 1 MG TABLET 2 MG PO (10:36)
[2019-12-30] MEDS: SELEGILINE 5 MG CAPSULE PO ×2 (10:36→20:14)
[2019-12-30] MEDS: TOLTERODINE LA 2 MG CAP PO (10:36)
[2019-12-30] MEDS: CARBIDOPA-LEVODOPA ER 50/200 TABLET 1.5 EACH PO ×3 (10:37→20:16)
[2019-12-30] MEDS: METOPROLOL ER 50 MG TABLET 25 MG PO (10:37)
--- NOTE | 2019-12-30 11:55 | P.PN_ITS ---
Subjective Subjective Date Patient Seen: 12/30/19 Interval history: Tarik Marquez is an 79-year-old male with a past medical history significant for hypertension, atrial fibrillation on warfarin, Parkinson's disease, CHF unknown type, former tobacco dependence, and prostate cancer status post insertion of an artificial sphincter who presented to the ED after waking up with rectal bleed ing. The patient is resting in bed comfortably. He has had no recurrence and has never had rectal bleeding previously. He endorses chronic severe constipation with straining and he is senna dependent. Discussed bowel regimen in detail and provided formal recommendations. He has no other complaints and denies headache, fatigue, lightheadedness or dizziness, shortness of breath, chest pain, abdominal pain, nausea, vomiting, fever, chills, dysuria, diarrhea. He is voiding and eliminating without difficulty. He is up ambulating with assistance. Exam Vital Signs (past 8 hours): - 12/30/19 05:30 12/30/19 05:49 12/30/19 09:25 Temperature 98.2 F Pulse Rate 64 Respiratory Rate 16 Blood Pressure 148/63 H Pulse Oximetry 96 96 96 12/30/19 11:00 Temperature 97.5 F L Pulse Rate 67 Respiratory Rate 18 Blood Pressure 150/68 H Pulse Oximetry 95 Oxygen Delivery Method Room Air Oxygen Flow Rate 0 Narrative Exam Narrative: General: Elderly male lying in bed and in no acute distress, well-developed, well-nourished, appropriately interactive. HEENT: Normocephalic, atraumatic. External ears without defect. Pupils equal, round, and reactive to light and accommodation. Anicteric sclerae, moist conjunctivae, and no lid lag. Oropharynx free of erythema and cobble stoning with moist mucosa. Neck: Supple with full range of motion. No jugular venous distension. No lymphadenopathy or thyromegaly. Cardiovascular: Irregularly irregular without murmurs, rubs, or gallops appreciated. Pulmonary: Clear to auscultation bilaterally without crackles, wheezes, or rho nchi. Normal respiratory effort with no use of accessory muscles. Abdomen: Soft, bowel sounds present, nontender, nondistended. No hepatosplenomegaly or masses appreciated. Extremities: No clubbing or cyanosis. Mild bilateral lower extremity pitting edema to ankles. Skin: Normal temperature, turgor, and texture; no rash, ulcers, or subcutaneous nodules appreciated. Neurological: Cranial nerves grossly intact. Masked facies. Psychiatric: Normal mood and affect. Alert and oriented to person, place, and time. Objective Labs Result Diagrams: 12/30/19 04:50 12/29/19 12:20 Labs: Laboratory Results - last 24 hr 12/29/19 12/29/19 12/29/19 12:20 12:20 12:20 WBC 8.3 RBC 4.46 L Hgb 13.3 L Hct 39.9 L MCV 89.5 MCH 29.9 MCHC 33.4 RDW 15.0 H Plt Count 200 Neut % (Auto) 69.4 Lymph % (Auto) 16.5 L [place] % (Auto) 11.3 Eos % (Auto) 2.5 Baso % (Auto) 0.3 Neut # (Auto) 5800 Lymph # (Auto) 1400 [place] # (Auto) 900 Eos # (Auto) 200 Baso # (Auto) 0 PT 23.2 H INR 2.0 H APTT 37 H D Sodium 138 Potassium 3.3 L Chloride 98 Carbon Dioxide 31 BUN 27 H Creatinine 1.40 H Estimated GFR 48.6 L BUN/Creatinine Ratio 19.3 Glucose 107 Calcium 9.5 Total Bilirubin 0.6 AST 24 ALT 4 Alkaline Phosphatase 83 Total Protein 7.8 Albumin 4.2 Globulin 3.6 Albumin/Globulin Ratio 1.2 Blood Type Antibody Screen 12/29/19 12/30/19 12/30/19 12:20 04:50 04:50 WBC 9.0 RBC 4.12 L Hgb 12.4 L Hct 36.9 L MCV 89.5 MCH 30.1 MCHC 33.7 RDW 14.4 Plt Count 192 Neut % (Auto) 68.1 Lymph % (Auto) 17.7 L [place] % (Auto) 10.5 Eos % (Auto) 3.5 Baso % (Auto) 0.2 Neut # (Auto) 6100 Lymph # (Auto) 1600 [place] # (Auto) 900 Eos # (Auto) 300 Baso # (Auto) 0 PT 18.2 H D INR 1.6 H APTT Sodium Potassium Chloride Carbon Dioxide BUN Creatinine Estimated GFR BUN/Creatinine Ratio Glucose Calcium Total Bilirubin AST ALT Alkaline Phosphatase Total Protein Albumin Globulin Albumin/Globulin Ratio Blood Type A Positive Antibody Screen Negative Assessment & Plan Assessment & Plan narrative: Tarik Marquez is an 79-year-old male with a past medical history significant for hypertension, atrial fibrillation on warfarin, Parkinson's disease, CHF unknown type, former tobacco dependence, and prostate cancer status post insertion of an artificial sphincter who presented to the ED after waking up with rectal bleeding. 1. Acute GI bleed, present on admission. Active. -Patient presented after waking with rectal bleeding. No history of previous GI bleed and patient is asymptomatic. Patient reports previous colonoscopy 5 years ago without polyps or any abnormalities. -CT abdomen and pelvis with contrast demonstrated no significant abnormality can be seen involving the distal colon to explain the patient's presenting symptoms. -Consulted general surgery, Dr. Penaloza, who recommended reversal of warfarin, bowel prep, and will plan to perform colonoscopy tomorrow. 2. Paroxysmal atrial fibrillation on warfarin, chronic, present on admission. Stable. -Held warfarin due to GI bleed. INR therapeutic on admission at 2.0. Received vitamin K 5 mg PO x1 to reverse warfarin. -Continue metoprolol succinate 25 mg daily with hold parameters. 3. Heart failure, type unknown, present on admission. Stable. -Does not represent CHF exacerbation. Patient does have mild bilateral pitting edema to ankles which is chronic. No overt symptoms of decompensated heart failure. -Continue home bumetanide 2 mg twice daily. -Continue to monitor strict I&Os and daily weights. -Continue monitor electrolytes and replete as necessary. 4. BPH with urinary retention, chronic, present on admission. Stable. -Patient has a history of prostate cancer status post prostatectomy with lymph node clips and penile implant in place. -Patient had distended bladder on CT abdomen and pelvis with contrast. Continue to monitor postvoid residual periodically and straight cath if unable to void.. 5. Parkinson's disease, chronic, present on admission. Stable. -Continue home carbidopa/levodopa 1.5 tab 3 times daily. 6. GERD, chronic, present on admission. Stable. -Continue home Protonix 40 mg daily. Code status: Full code. Patient reports having a formal health directive. Spouse is the designated DPOA. VTE prophylaxis: SCDs. Disposition: Patient likely to discharge home tomorrow if blood counts are stable and colonoscopy has been performed. Quality VTE Deep Vein Thrombosis/Pulmonary Embolism Present on Admission: No
[2019-12-30 12:17] LABS: Potassium 3.1 mmol/L (3.4-5.1); Sodium 138 mmol/L (137-145)
[2019-12-30 12:18] LABS: BUN Creatinine Ratio 17.5 (6-22); Blood Urea Nitrogen 21 mg/dL (9-20); Calcium 9.2 mg/dL (8.4-10.2); Carbon Dioxide 33 mmol/L (22-32); Chloride 99 mmol/L (98-107); Estimated Glomerular Filt Rate 58.1 mL/min (>60); Glucose 85 mg/dL (80-110); HEMOLYSIS < 15 (0-50); Magnesium 1.9 mg/dL (1.6-2.3)
[2019-12-30] MEDS: POTASSIUM CHLORIDE 60 MEQ in SODIUM CHLORIDE 0.9% 500 ML 88.333 ML IV (14:21)
[2019-12-30] MEDS: PEG3350/SOD SULF,BICARB,CL/KCL 4,000 ML SOLUTION 4000 ML PO (15:54)
--- NOTE | 2019-12-30 16:40 | PC.NURSE ---
Addendum entered by Michela Carrasco R.N. 12/30/19 23:46: Pt consumed approximately 2500 cc's golytely this evening shift. States doesn't feel able to consume any more. Up to commode at this hour to attempt to empty bladder. Encouraged pt to manage artificial sphincter to allow bladder to entirely empty. Informed pt NPO after midnight and encouraged one more hospital drinking bottle of golytely. Pt compliant. Call light within reach. Addendum entered by Michela Carrasco R.N. 12/30/19 20:27: Pt up to commode for loose/liquid stool. Incontinent of brown semiformed/liquid stool on way to commode. Urine mixed with stool. Bladder scanned once returned to bed by ELECTRICAL LOGGING OPERATOR for 760cc's. Dr. Pena was informed. Per MD, pt should be able to empty bladder completely with control of artificial sphincter. If not, straight cath per MD. Will encourage this action on pt's part with next trip up to commode. Addendum entered by Michela Carrasco R.N. 12/30/19 18:04: Pt up in chair taking clear liquid evening meal and golytely. Denies any nausea. Proceeding slowly. Spouse remains present, attentive. Addendum entered by Michela Carrasco R.N. 12/30/19 16:57: Spontaneous emesis of everything he just drank per ELECTRICAL LOGGING OPERATOR's statement. Pt states emesis came on suddenly. Pt reports willingness to attempt bowel prep once again. Administered zofran as ordered and encouraged pt to slow down rate of consumption of golytely. Original Note: Pt provided with golytely as ordered. This was served over ice with spouse's assistance. Up to commode with one assist. Pt is slow to mobilize. Denies any stools today. Denies any abdominal discomfort or complaints. Returned to bed with head of bed elevated and taking golytely as ordered.
[2019-12-30] MEDS: ONDANSETRON 4 MG/2 ML INJ IV (16:51)
[2019-12-30] MEDS: POTASSIUM CHLORIDE 10 MEQ TAB PO (20:14)
[2019-12-31] VITALS (15 sets, daily range): BP systolic 140–175; BP diastolic 46–94; PULSE 57–95; RESP 11–18; TEMP 35.7–37; O2SAT 95–100; BMI 27.3
--- NOTE | 2019-12-31 | PATH_ITS ---
[facility] Accession Number: [id number] . 01 Material submitted: . colon - LEFT COLON BIOPSY . 01 Clinical history: . BLOOD RELEASED FROM RECTAL AREA . 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 Negative for granulomata, dysplasia or malignancy. [facility] 01/01/2020 1426 Local . 02 Electronically signed: . Bennie Stearns MD, PhD, Pathologist NPI- [id number] . 01 Gross description: . LEFT COLON BIOPSY: Received in formalin are multiple fragment(s) of lepe, soft tissue measuring 0.1 x 0.1 x 0.1 cm to 0.3 x 0.3 x 0.2 cm submitted entirely in 1 cassette(s) /[facility] 01/01/2020 0152 Local . 02 Pathologist provided ICD-10: K55.9 . 02 CPT . 530193 Performed at: 01 [facility] [address] [place] [address], [place], [place] [id number] MD Viraj Ochoa MD Phone: [phone] Performed at: 02 [facility] [address] [place], [place] [id number] MD Brooke Veloz MD Phone: [phone]
[2019-12-31 05:29] LABS: Add Manual Diff / Slide Review NO; Basophils Absolute Auto 0 /uL (0-100); Basophils Percent Auto 0.3 % (0-2); Eosinophils Absolute Auto 300 /uL (0-450); Eosinophils Percent Auto 4.2 % (2-4); Hematocrit 36.2 % (41-53); Hemoglobin 12.1 g/dL (13.5-17.5); Lymphocytes Absolute Auto 1700 /uL (1100-4500); Lymphocytes Percent Auto 20.5 % (25-40); Mean Corpuscular HGB Conc 33.5 % (30-36); Mean Corpuscular Hemoglobin 29.9 PG (26-34); Mean Corpuscular Volume 89.3 fL (80-100); Monocytes Absolute Auto 800 /uL (0-900); Monocytes Percent Auto 9.9 % (3-14); Neutrophils Absolute Auto 5400 /uL (1500-7000); Neutrophils Percent Auto 65.1 % (50-75); Platelet Count 175 X10^3/uL (150-400); Red Blood Cell Count 4.06 X10^6/uL (4.5-5.9); Red Cell Distribution Width 14.6 % (11.6-14.8); White Blood Cell Count 8.3 X10^3/uL (4.5-11.0)
[2019-12-31 05:37] LABS: BUN Creatinine Ratio 14.5 (6-22); Blood Urea Nitrogen 16 mg/dL (9-20); Calcium 8.5 mg/dL (8.4-10.2); Carbon Dioxide 35 mmol/L (22-32); Chloride 100 mmol/L (98-107); Estimated Glomerular Filt Rate > 60.0 mL/min (>60); Glucose 99 mg/dL (80-110); HEMOLYSIS < 15 (0-50); Magnesium 1.6 mg/dL (1.6-2.3); Potassium 3.5 mmol/L (3.4-5.1); Sodium 140 mmol/L (137-145)
[2019-12-31] MEDS: PANTOPRAZOLE 40 MG TABLET PO (05:57)
[2019-12-31 06:16] LABS: INR 1.3 (0.9-1.3); Prothrombin Time 15.3 SECONDS (10.1-12.7)
[2019-12-31] MEDS: TOLTERODINE LA 2 MG CAP PO (09:16)
[2019-12-31] MEDS: CARBIDOPA-LEVODOPA ER 50/200 TABLET 1.5 EACH PO (09:16)
[2019-12-31] MEDS: POTASSIUM CHLORIDE 10 MEQ TAB PO (09:16)
[2019-12-31] MEDS: SELEGILINE 5 MG CAPSULE PO (09:16)
[2019-12-31] MEDS: SODIUM CHLORIDE 0.9% FLUSH 10 ML IV (09:17)
--- NOTE | 2019-12-31 11:37 | CM.DPC ---
DCP continued: EMR reviewed: During AM rounds Dr. Pena stated that patient is prepping for a Colonoscopy and should be having that done today. Dr. Pena was waiting on a call from general surgeon to determine if that will happen today. CM/RN met with family and they are planning on taking patient home when he is medically stable. Cm/Rn asked patient and family if they are interested in HH if it is needed at D/C and patients stated she didn't think that would be necessary but would see how patient is doing prior to D/C. CM/RN gave medicare approved HH agency list for the patient and family to review just incase. Plan: D/C home with family when medically stable. No identified D/C planning needs noted at this time. CM department will continue to follow to assist with any D/C planning needs that might arise. Ann Arango RN
--- NOTE | 2019-12-31 12:51 | PT.IIE ---
Surgery Performed Operation Date: 12/31/19 16:45 <No data on this case meets the specified criteria> Surgical History (Last Reviewed 12/31/19 @ 17:21 by Valentin Hines MD) No pertinent past surgical history (Acute) Medical History (Last Reviewed 12/31/19 @ 17:21 by Valentin Hines MD) Atrial fibrillation (Acute) Congestive heart failure (Acute) Hypertension (Acute) Parkinsons (Acute) Physical Therapy Inpatient Evaluation/Re-Eval M1 PT/OT-IP Prior Functional Status Start: 12/31/19 17:55 Freq: NEEDED Status: Active Protocol: Document 12/31/19 12:51 DLM (Rec: 12/31/19 18:07 DLM [id number]) Medical Review Prior Functional Status Medical History Reviewed Yes Diet/Fluid Consistency Regular Communication WNL Mobility and Gait Independent with FWW, uses stair lift to get up flight of steps at home Activities of Daily Living and IADL's not driving, Independent with ADL's Prior Functional Level (Other details) has lift recliner Social History Household Members spouse Living Arrangements House Number of Floors (Floors) One Floor Number of Stairs To Enter/Railing? no steps to enter from garage, then uses stair lift to go to main level Home Equipment Front Wheel Walker,Straight Cane Employment Status Retired M2 PT-IP Current Condition Start: 12/31/19 17:55 Freq: NEEDED Status: Active Protocol: Document 12/31/19 12:51 DLM (Rec: 12/31/19 18:07 DL [id number]) Physical Therapy Current Condition Current Condition Evaluation Date 12/31/19 Treatment Diagnosis weakness, decreased activity tolerance Onset Date 12/31/19 M3 PT-IP Subjective Start: 12/31/19 17:55 Freq: NEEDED Status: Active Protocol: Document 12/31/19 12:51 DLM (Rec: 12/31/19 18:07 DL [id number]) Subjective Physical Therapy Visit Type Type Initial Evaluation Visit Start Time 12:10 Visit Stop Time 12:51 Total Visit Minutes 41 Number of GLOBAL LOGISTICS ANALYST Visits 0 Physical Therapy Visit Comments Patient Comments His reports he is feeling better, he got very weak at home Patient Goals he wants to be able to go home Therapy Pain Assessment Pain When Pain Assessed During Mobility Pain Present Pain Present Denied Pain M4 PT-IP Mobility and Gait Start: 12/31/19 17:55 Freq: NEEDED Status: Active Protocol: Document 12/31/19 12:51 DLM (Rec: 12/31/19 18:07 [facility] [id number]) PT-Bed Mobility Assessment Supine to Sit Supine to Sit Standby Assistance Sit to Supine Sit to Supine Standby Assistance Scooting Scooting to Edge of Bed Standby Assistance PT-Transfer Assessment Sit to and From Stand Sit to and from Stand Contact Guard Assistance, Minimal Assistance,Use of Upper Extremities Equipment Transfer Assistive Device Gait Belt,Front Wheeled Walker Transfers Transfer Destination Toilet Transfer Technique Stand Step Pivot Transfer Ability Level of Assist Contact Guard Assistance,Use of Upper Extremities Comments Mobility Comments his was presen this visit Gait Assessment Gait Gait Assistance Required: Standby Assistance,Contact Guard Assist Distance (Feet) 200 Assistive Devices Assistive Device Gait Belt,Front Wheeled Walker Gait Deviations General Gait Pattern Decreased Stride Length,Flexed Trunk Factors Limiting Gait Function Factors Limiting Gait Function Decreased Activity Tolerance Comments Gait Comments he tends to push the FWW too far in front of him and needs repeated cuing to stay close to the fWW (his reports having this problem at home also) PT-Balance Assessment Sitting Balance and Reactions Static Sitting Balance Ability Good Dynamic Sitting Balance Ability Good Standing Balance and Reactions Static Standing Balance Ability Good Dynamic Standing Balance Ability Fair Device Used FWW M5 PT-IP Objective Assessments Start: 12/31/19 17:55 Freq: NEEDED Status: Active Protocol: Document 12/31/19 12:51 DL (Rec: 12/31/19 18:07 [facility] [id number]) Orientation Orientation/Cognition Level of Alertness Alert Orientation Name,Age,Birthday,Month,Date, Year,Day of Week,Place, Situation Language Function Ability No Deficits Noted Safety Awareness Decreased Safety Awareness Memory Description No Deficits Noted Gross Range of Motion Upper Extremity ROM Assessment Within Functional Limits Lower Extremity ROM Assessment Within Functional Limits Strength Upper Extremity Strength Assessment Within Functional Limits Lower Extremity Strength Assessment Within Functional Limits Coordination Assessment Gross Coordination Gross Coordination Impaired Assessment Coordination Comments UE tremors increase with manual resistance Sensation Assessment Sensation Gross Sensation WNL Muscle Tone Comments Muscle Tone Comments mild to moderate rigidity noted, difficulty shifting his weight forward for sit-stand M7 PT-IP Assessment and Plan Start: 12/31/19 17:55 Freq: NEEDED Status: Active Protocol: Document 12/31/19 12:51 GLENDY (Rec: 12/31/19 18:07 DL [id number]) PT Summary Assessment and Plan Potential Rehabilitation Potential Good Status of Condition at Evaluation Evolving Summary Impairments Balance,Coordination,Bed Mobility,Transfers,Gait, Activity Tolerance Assessment Summary Tarik reports he is feeling better. He tolerated gait in the saucedo with fWW and one person assist. He lives with his who is very supportive and plans to assist him at discharge. Discussed option of home theray vs out- pt therapy and pt and his prefer to go to out-pt therapy. They received a referral for out-pt PT from primary physician before this admission but they had not started yet. Goals Bed Mobility Goal Independent Transfer Goal Standby Assistance,Front Wheeled Walker Gait Goal Standby Assistance,Front Wheel Walker Gait Distance 200 feet Days to Meet Goals 2 Frequency of Treatment Frequency Of Treatment Once a Day Treatment Plan Physical Therapy Treatment Plan Bed Mobility Training,Transfer Training,Gait Training, Therapeutic Exercise,Balance Retraining,Discharge Planning, Neuromuscular Re-ed Recommendations To Nursing Amount of Assist Needed 1 Person Assist Discharge Recommendations PT Discharge Recommendations Home with Assistance, Outpatient PT Transportation Needs at Discharge Private Vehicle
[2019-12-31] MEDS: FLEETS ENEMA 1 EACH PR ×2 (13:47→16:08)
--- NOTE | 2019-12-31 17:17 | PM.PREOP ---
Pre-operative Note Interval Note History & Physical reviewed/Exam performed by Physician: Yes Changes to H&P: No
--- NOTE | 2019-12-31 17:20 | P.HP_ITS ---
History of Present Illness History of Present Illness Date Patient Seen: 12/31/19 Time Patient Seen: 17:00 Chief complaint: blood released from rectal area Narrative: The patient is a gentleman admitted with lower GI bleeding. He had mucoid blood per rectum. He was given a bowel prep and I was asked to perform a colonoscopy on him. He has been receiving enemas today as the bowel prep did not seem to stimulate much activity. The patient has a history of Parkinson's disease atrial fibrillation on warfarin coronary artery disease and a history of heart failure which apparently is stable perhaps somewhat chronic Patient History Medical History Atrial fibrillation (Acute) Congestive heart failure (Acute) Hypertension (Acute) Parkinsons (Acute) Surgical History No pertinent past surgical history (Acute) Family & Social History Social History: household members spouse Prior Living Arrangements House Safety & Behavioral: Feels Safe in Current Yes Environment Been Physically Hurt or No Threatened By a Person Suicidal Ideation Description None Suicide Plan Description No Plan Tobacco & Substance use: Smoking Status Former smoker alcohol intake current alcohol intake frequency holiday/special occasion Substance Use Type does not use Meds Home Medications and Allergies Home Medications Medication Instructions Recorded Confirmed Type aspirin 81 mg PO QPM 07/24/18 12/29/19 History bumetanide 2 mg PO BID 07/24/18 12/29/19 History carbidopa-levodopa 1.5 tab PO TID 07/24/18 12/29/19 History cholecalciferol (vitamin D3) 1,000 unit PO DAILY 07/24/18 12/29/19 History [Vitamin D3] docusate calcium [Stool Softener] 1 cap PO BID 07/24/18 12/29/19 History metoprolol succinate [Toprol XL] 25 mg PO DAILY 07/24/18 12/29/19 History potassium chloride [Klor-Con 10] 10 meq PO BID 07/24/18 12/29/19 History selegiline HCl 5 mg PO BID 07/24/18 12/29/19 History sennosides [senna] 1 tab PO PRN PRN 07/24/18 12/29/19 History tolterodine [Detrol LA] 2 mg PO DAILY 07/24/18 12/29/19 History warfarin [Coumadin] 5 mg PO DAILY 02/05/19 12/29/19 History famotidine [Pepcid] 20 mg PO DAILY 12/29/19 12/31/19 History nitroglycerin 0.4 mg SUBLINGUAL Q5-15M PRN 12/29/19 12/29/19 History warfarin See Rx Instructions .ROUTE .COMPLEX 12/29/19 12/29/19 History Allergies Allergy/AdvReac Type Severity Reaction Status Date / Time penicillin G Allergy Swelling Verified 07/24/18 12:22 of Lip/Tongue/Throat hydrochlorothiazide AdvReac Verified 07/24/18 12:22 lisinopril AdvReac Cough Verified 07/24/18 12:22 simvastatin [From Zocor] AdvReac Weakness Verified 07/24/18 12:22 Review of Systems Review of Systems Narrative: Patient takes medication for his Parkinson's. No cough or cold at this time. He was not terribly active. He has a history of prostate cancer in urinary issues. No seizures or blackouts. Exam Vital Signs (past 8 hours): - 12/31/19 12:00 12/31/19 13:16 12/31/19 15:35 Temperature 97.5 F L 97.4 F L Pulse Rate 63 77 Respiratory Rate 16 18 Blood Pressure 143/68 H 153/87 H Pulse Oximetry 97 98 99 12/31/19 17:08 Temperature 97.2 F L Pulse Rate 77 Respiratory Rate 14 Blood Pressure 175/69 H Pulse Oximetry 98 Oxygen Delivery Method Room Air Oxygen Flow Rate 0 Narrative Exam Narrative: Operative no apparent distress. Lungs are clear. Heart irregularly irregular. Abdomen is protuberant soft nontender. Objective Labs Result Diagrams: 12/31/19 05:00 12/31/19 05:00 Labs: Laboratory Results - last 24 hr 12/31/19 12/31/19 12/31/19 05:00 05:00 05:00 WBC 8.3 RBC 4.06 L Hgb 12.1 L Hct 36.2 L MCV 89.3 MCH 29.9 MCHC 33.5 RDW 14.6 Plt Count 175 Neut % (Auto) 65.1 Lymph % (Auto) 20.5 L [place] % (Auto) 9.9 Eos % (Auto) 4.2 H Baso % (Auto) 0.3 Neut # (Auto) 5400 Lymph # (Auto) 1700 [place] # (Auto) 800 Eos # (Auto) 300 Baso # (Auto) 0 PT 15.3 H INR 1.3 Sodium 140 Potassium 3.5 Chloride 100 Carbon Dioxide 35 H BUN 16 Creatinine 1.10 Estimated GFR > 60.0 BUN/Creatinine Ratio 14.5 Glucose 99 Calcium 8.5 Magnesium 1.6 Assessment & Plan Assessment & Plan narrative: The patient for a screening colonoscopy. I have discussed the procedure with them. Risks of bleeding, perforation which would necessitate major operation, failure to find remove all lesions, the potential tattoo were all discussed. All questions were answered. They wished to proceed. Quality VTE Deep Vein Thrombosis/Pulmonary Embolism Present on Admission: No
[2019-12-31] MEDS: SODIUM CHLORIDE 0.9% 1,000 ML 84 ML IV (17:45)
--- NOTE | 2019-12-31 18:10 | PM.PREOP ---
Pre-operative Note Interval Note History & Physical reviewed/Exam performed by Physician: Yes Changes to H&P: No
--- NOTE | 2019-12-31 18:48 | PM.OP.ENDO ---
Operative Date/Time/Diagnoses Date of procedure: 12/31/19 Time of procedure: 18:49 Pre-op diagnosis: Rectal bleeding Post-op diagnosis: same (Colitis involving portions of the sigmoid and descending colon.) Procedure & Clinicians Study performed: Colonoscopy with cold biopsy Same procedure as scheduled: Yes Indications: Patient with rectal bleeding brought for colonoscopy. Due to his severe medical problems including atrial fib coronary disease use of nitroglycerin for chest pain and Parkinson's disease he was felt to be a poor candidate for moderate sedation and the involvement of Anesthesia was requested to safely perform this study Surgeon: Valentin Hines Procedure Notes SCOAP/Timeout: Performed Procedure in detail: The patient was placed in the left lateral decubitus position and underwent IV sedation directed by the surgeon consisting of fentanyl and Versed. Digital exam was unremarkable.. The scope was inserted and advanced through the rectum into the sigmoid, descending, transverse, and ascending colon. Patient was noted to have patchy inflammation of his sigmoid and left colon.. The cecum was reached identified by the ileocecal valve. The scope was gradually brought out. No Polyps were found. Biopsies were taken in the left colon and its sigmoid. The scope ultimately was retroflexed in the rectum. The appearance was remarkable for small hemorrhoids without ulceration. The scope was removed and the patient tolerated the procedure well. The prep was not good. Scope withdrawal time: 7 minutes Sedation minutes: 0 (Anesthesiologist involved due to significant medical problems) Findings: colitis Specimen(s): other (Biopsies of inflamed colon) Complications: none Post-procedure Recommendations: Other recommendation (Await biopsy results to treat. Can be done by primary provider) Follow up: weeks (Two) Disposition: PACU
--- NOTE | 2019-12-31 20:08 | PM.DS.1 ---
History of Present Illness History of Present Illness Date Patient Seen: 12/29/19 Chief complaint: blood released from rectal area Narrative: Written by Omar TRIANA: Patient is an 79-year-old male with PMH of Parkinson's disease, HTN, AFIB (on warfarin AC), HF, prior tobacco dependence, and prostate cancer (s/p insertion of an artificial sphincter) Patient woke up at 3:00 a.m. on 12/29 with rectal bleeding. Specifically, patient noticed bright red blood in his underwear. In the morning he had a mucoid bright red stool. Reports a total of 2 episodes of hematochezia prior to ED presentation. Associated symptoms include mild abdominal pain localized to the left lower quadrant of the abdomen with defecation only and nausea without emesis. Day prior patient was seen at [facility] for dizziness, hypotension, and bradycardia. Patient reports having an acute cardiac workup that was negative, consequently he was discharged home. No prior history rectal bleeding. Patient is anticoagulated with warfarin for underlying atrial fibrillation. INR 2.0 on presentation. Also, known to have underlying GERD. On ranitidine for many years, however, was changed to famotidine 2-3 weeks ago. General surgery was notified patient's case by ED department. Dr. Ye agreed to consult with a plan to pursue colonoscopy once patient's INR has stabilized. Patient received 5 mg of Vitamin K. Discharge Providers Provider Date of admission: 12/29/19 15:39 Discharge Date: 12/31/19 Primary care physician: Linda Scott MD Consults: 12/29/19 17:11 Consult to Pastoral Services Routine Comment: pt is amish; requests in house director of environmental services visit. 12/31/19 09:44 Consult to Physical Therapy Evaluate & Treat Comment: Physician Instructions: Evaluate and Treat Discharge provider: Goldie Pena DO Summary Hospital Course Discharge Diagnosis: 1. Acute GI bleed, present on admission. Resolved. 2. Paroxysmal atrial fibrillation on warfarin, chronic, present on admission. Stable. 3. Heart failure, type unknown, present on admission. Stable. 4. BPH with urinary retention, chronic, present on admission. Stable. 5. Parkinson's disease, chronic, present on admission. Stable. 6. GERD, chronic, present on admission. Stable. Hospital Course: Tarik Marquez is an 79-year-old male with a past medical history significant for hypertension, atrial fibrillation on warfarin, Parkinson's disease, CHF unknown type, former tobacco dependence, and prostate cancer status post insertion of an artificial sphincter who presented to the ED after waking up with rectal bleeding. 1. Acute GI bleed, present on admission. Resolved. -Patient presented after waking with rectal bleeding. No history of previous GI bleed and patient is asymptomatic. Patient reports previous colonoscopy 5 years ago without polyps or any abnormalities. -CT abdomen and pelvis with contrast demonstrated no significant abnormality can be seen involving the distal colon to explain the patient's presenting symptoms. -Consulted general surgery, Dr. Penaloza, who recommended reversal of warfarin, bowel prep, and colonoscopy. Dr. Hines performed colonoscopy which demonstrated patchy inflammation or colitis of his sigmoid and left colon with biopsies taken. Dr. Hines recommended holding off on restarting warfarin and aspirin until biopsies result in the next several days per PCP. 2. Paroxysmal atrial fibrillation on warfarin, chronic, present on admission. Stable. -Held warfarin and aspirin due to GI bleed. INR therapeutic on admission at 2.0. Received vitamin K 5 mg PO x1 to reverse warfarin. Dr. Hines recommended holding off on restarting warfarin and aspirin until biopsies result per PCP -Continued metoprolol succinate 25 mg daily with hold parameters. 3. Heart failure, type unknown, present on admission. Stable. -Does not represent CHF exacerbation. Patient does have mild bilateral pitting edema to ankles which is chronic. No overt symptoms of decompensated heart failure. -Continued home bumetanide 2 mg twice daily. -Continued to monitor strict I&Os and daily weights. -Continued monitor electrolytes and replete as necessary. 4. BPH with urinary retention, chronic, present on admission. Stable. -Patient has a history of prostate cancer status post prostatectomy with lymph node clips and penile implant in place. -Patient had distended bladder on CT abdomen and pelvis with contrast. Continue to monitor postvoid residual periodically and straight cath if unable to void.. 5. Parkinson's disease, chronic, present on admission. Stable. -Continued home carbidopa/levodopa 1.5 tab 3 times daily. -Patient has had intermittent moderate to severe constipation with straining and recommended bowel regimen with MiraLax 17 g daily and Colace 100 mg twice daily. May use bisacodyl suppositories, fleets suppositories, enemas, Senokot, or Dulcolax as needed for persistent constipation. 6. GERD, chronic, present on admission. Stable. -Continued home Protonix 40 mg daily. Exam Vital Signs (past 8 hours): - 12/31/19 13:16 12/31/19 15:35 12/31/19 17:08 Temperature 97.5 F L 97.4 F L 97.2 F L Pulse Rate 63 77 77 Respiratory Rate 16 18 14 Blood Pressure 143/68 H 153/87 H 175/69 H Pulse Oximetry 98 99 98 12/31/19 18:55 12/31/19 19:00 12/31/19 19:05 Temperature 97.8 F Pulse Rate 59 L 58 L 57 L Respiratory Rate 12 11 L 12 Blood Pressure 146/58 H 142/64 H 142/69 H Pulse Oximetry 98 99 99 12/31/19 19:10 12/31/19 19:20 12/31/19 19:53 Temperature 98.6 F Pulse Rate 57 L 64 75 Respiratory Rate 12 15 18 Blood Pressure 140/62 142/46 H 152/79 H Pulse Oximetry 100 99 97 Oxygen Delivery Method Room Air Oxygen Flow Rate 0 Narrative Exam Narrative: General: Elderly male lying in bed and in no acute distress, well-developed, well-nourished, appropriately interactive. HEENT: Normocephalic, atraumatic. External ears without defect. Pupils equal, round, and reactive to light and accommodation. Anicteric sclerae, moist conjunctivae, and no lid lag. Oropharynx free of erythema and cobble stoning with moist mucosa. Neck: Supple with full range of motion. No jugular venous distension. No lymphadenopathy or thyromegaly. Cardiovascular: Irregularly irregular without murmurs, rubs, or gallops appreciated. Pulmonary: Clear to auscultation bilaterally without crackles, wheezes, or rhonchi. Normal respiratory effort with no use of accessory muscles. Abdomen: Soft, bowel sounds present, nontender, nondistended. No hepatosplenomegaly or masses appreciated. Extremities: No clubbing or cyanosis. Mild bilateral lower extremity pitting edema to ankles, improved with compression stockings. Skin: Normal temperature, turgor, and texture; no rash, ulcers, or subcutaneous nodules appreciated. Neurological: Cranial nerves grossly intact. Parkinson's disease with masked facies. Psychiatric: Normal mood and affect. Alert and oriented to person, place, and time. Objective Labs Result Diagrams: 12/31/19 05:00 12/31/19 05:00 Labs: Laboratory Results - last 24 hr 12/31/19 12/31/19 12/31/19 05:00 05:00 05:00 WBC 8.3 RBC 4.06 L Hgb 12.1 L Hct 36.2 L MCV 89.3 MCH 29.9 MCHC 33.5 RDW 14.6 Plt Count 175 Neut % (Auto) 65.1 Lymph % (Auto) 20.5 L [place] % (Auto) 9.9 Eos % (Auto) 4.2 H Baso % (Auto) 0.3 Neut # (Auto) 5400 Lymph # (Auto) 1700 [place] # (Auto) 800 Eos # (Auto) 300 Baso # (Auto) 0 PT 15.3 H INR 1.3 Sodium 140 Potassium 3.5 Chloride 100 Carbon Dioxide 35 H BUN 16 Creatinine 1.10 Estimated GFR > 60.0 BUN/Creatinine Ratio 14.5 Glucose 99 Calcium 8.5 Magnesium 1.6 Discharge Plan Discharge Plan Patient Disposition: Home Discharge comment: You're being discharged home. You had inflammation of the colon which likely led to minor bleeding. General surgery recommends not taking warfarin or aspirin until your biopsies result and you go over these with your primary care physician. Please see your primary care physician in the next 1 week regarding your hospitalization in biopsy results. Highly recommend bowel regimen with Colace 100 mg twice daily and MiraLax 17 g daily or titrated to effect (twice daily, daily, every other day, every 3 days, or once a week). You may take glycerin suppositories, enema, Senokot or Dulcolax as directed on packaging and as needed for persistent constipation. Discharge orders & Medications Prescriptions: New polyethylene glycol 3350 17 gram Powder In Packet 17 gram PO DAILY Qty: 30 RF: 0 docusate sodium [Colace] 100 mg capsule 100 mg PO BID Qty: 60 RF: 0 Continued tolterodine 2 mg capsule,extended release 24hr 2 mg PO DAILY RF: 0 metoprolol succinate 50 mg tablet extended release 24 hr 25 mg PO DAILY RF: 0 docusate calcium 240 mg capsule 1 cap PO BID RF: 0 carbidopa-levodopa 50-200 mg tablet extended release 1.5 tab PO TID RF: 0 potassium chloride 10 mEq tablet extended release 10 meq PO BID RF: 0 selegiline HCl 5 mg capsule 5 mg PO BID RF: 0 sennosides [senna] 8.6 mg Tablet 1 tab PO PRN PRN (Reason: Constipation) RF: 0 bumetanide 2 mg tablet 2 mg PO BID RF: 0 cholecalciferol (vitamin D3) [Vitamin D3] 1,000 unit Tablet 1,000 unit PO DAILY RF: 0 nitroglycerin 0.4 mg Tablet, Sublingual 0.4 mg SUBLINGUAL Q5-15M PRN (Reason: chest pain) RF: 0 famotidine [Pepcid] 20 mg Tablet 20 mg PO DAILY RF: 0 Discontinued aspirin 81 mg Tablet,Delayed Release (Dr/Ec) 81 mg PO QPM RF: 0 warfarin [Coumadin] 5 mg tablet 5 mg PO DAILY RF: 0 warfarin 7.5 mg Tablet See Rx Instructions .ROUTE .COMPLEX RF: 0 Follow up/Referrals: Linda Scott MD [Primary Care Provider] - 1 Week Diet/Activity/Treatments Diet: Low-fat, Low-sodium and Low-cholesterol Activity: Activity as tolerated with cane or forward wheeled walker Visit Report/Discharge Packet Instructions: DI for Colitis Stand Alone Forms: Colonoscopy Result: [facility]urg Discharge Data Primary Care Provider: Linda Scott Attending Provider: Goldie Pena Admit Date/Time: 12/29/19 15:39 Discharges patient from system. Discharge Date/Time: 12/31/19 20:44 Quality VTE Deep Vein Thrombosis/Pulmonary Embolism Present on Admission: No
--- NOTE | 2019-12-31 20:44 | PC.NURSE ---
Discharge Note/ Evening Shift- Sakina D/C'ed home. IV line removed and bandaid applied. Tele Monitor removed. reviewed [id number] instructions and paperwork wioth patient and spouse. Patient dressed and packedup all personal belongings. Patient left via wheelchiar to private car with all personal belongs at 2039.
--- NOTE | 2020-01-14 13:08 | PC.NURSE ---
Late entry: Potassium chloride stop time 12/30 2020
== END 2019-12-31 20:44 | disposition home or self-care (01) ==
LOC: ED 15:38 → AC 15:41
PROVIDERS: Specialist; Admitting Provider Internal Medicine; Emergency Provider Emergency Medicine; PCP Family Medicine; Referring Provider Internal Medicine; Visit Provider Internal Medicine
PROC: 0DJD8ZZ Inspection of Lower Intestinal Tract, Via Natural or Artificial Opening Endoscopic (ICD-10-PCS; CPT 45378; principal; 2019-12-31 16:45)
DX: K51.511 Left sided colitis with rectal bleeding (principal); K64.8 Other hemorrhoids; Z79.01 Long term (current) use of anticoagulants; G20 Parkinson's disease; I50.9 Heart failure, unspecified; N40.1 Benign prostatic hyperplasia with lower urinary tract symptoms; R33.8 Other retention of urine; K21.9 Gastro-esophageal reflux disease without esophagitis; I48.0 Paroxysmal atrial fibrillation
CPT/HCPCS: 45380; 36415; 74177; 80048; 80053; 82272; 83735; 85025; 85610; 85730; 86850; 86900; 86901; 93005; 96360; 96361; 96374; 96375; 97162; 99284; 99285; G0378; J2405; J2704; J3430; J3480

== ENCOUNTER → 2020-04-28 10:09 | Outpatient (CLI) | payer MEDICARE, OTHER, SELFPAY ==
[2019-12-29 17:00] VITALS: BMI 27.3
[2020-04-28 23:38] LABS: COVID19 Sendout Not Detected (Not Detect)
== END ==
PROVIDERS: PCP Family Medicine; Visit Provider Physician Assistant
DX: Z01.812 Encounter for preprocedural laboratory examination (principal)
CPT/HCPCS: 87635

== ENCOUNTER 2020-08-20 21:00 | Observation (INO) | payer MEDICARE, OTHER, SELFPAY ==
[2019-12-29 17:00] VITALS: BMI 27.3
[2020-08-20] VITALS (11 sets, daily range): BP systolic 139–215; BP diastolic 63–95; PULSE 53–67; RESP 16–22; TEMP 36.9; O2SAT 95–98; BMI 28.5
--- NOTE | 2020-08-20 21:40 | PC.NURSE ---
Had pacemaker placed in April at [facility]. Pt/spouse do not remember pacer settings or brand.
--- NOTE | 2020-08-20 22:06 | DI.CT.S_ITS ---
PROCEDURE: CT HEAD/BRAIN WO CON INDICATIONS: Syncope TECHNIQUE: Noncontrast 4.5 mm thick angled axial sections acquired from the foramen magnum to the vertex, with coronal and sagittal reformats. For radiation dose reduction, the following was used: automated exposure control, adjustment of mA and/or kV according to patient size. COMPARISON: [facility], CT, CT HEAD/BRAIN WO CON, 02/28/2019, 23:24. [facility], CT, CT HEAD/BRAIN WO CON, 02/05/2019, 10:35. FINDINGS: Image quality: Excellent. CSF spaces: Basal cisterns are patent. No extra-axial fluid collections. Ventriculomegaly stable compared to prior examinations. Brain: No intracranial bleeds or masses. There is cerebral volume loss for age, with resultant ventricular and sulcal prominence. There are periventricular and deep white matter chronic small vessel ischemic changes. There is intracranial internal carotid artery atherosclerosis. Skull and face: Calvarium and visualized facial bones appear intact, without suspicious lesions. Sinuses: Visualized sinuses and mastoids are clear. IMPRESSION: 1. No acute intracranial disease process. 2. Stable ventriculomegaly which could be due to central volume loss versus normal pressure hydrocephalus. Dictated by: Jennifer Gamez MD, PhD on 08/21/2020 at 7:35 Approved by: Jennifer Gamez MD, PhD on 08/21/2020 at 7:36
--- NOTE | 2020-08-20 22:06 | DI.RAD.S_ITS ---
PROCEDURE: XR CHEST 1V INDICATIONS: Dyspnea TECHNIQUE: One view of the chest was acquired. COMPARISON: [facility], CR, XR CHEST 1V, 12/28/2019, 22:51. FINDINGS: Surgical changes and devices: Lead-less cardiac pacer noted. Lungs and pleura: Lungs are clear. No pleural effusions or pneumothorax. Mediastinum: Mediastinal contours appear normal. Heart is enlarged. Bones and chest wall: No suspicious bony lesions. Overlying soft tissues appear unremarkable. IMPRESSION: No acute cardiopulmonary disease process. Dictated by: Jennifer Gamez MD, PhD on 08/21/2020 at 8:53 Approved by: Jennifer Gamez MD, PhD on 08/21/2020 at 8:54
--- NOTE | 2020-08-20 22:07 | ED.SYNCOPE ---
HPI - Syncope General Chief Complaint: Syncope Stated Complaint: Near Syncope Time Seen by Provider: 08/20/20 21:52 Source: patient, family and EMS Mode of arrival: EMS Limitations: no limitations History of Present Illness HPI narrative: at bedside. Witnessed event of near-syncope at 8:00 p.m. tonight. Brought in by ambulance. Patient states he just had bowel movement and urinated and was using his walker walking away from the bathroom when he feel weak. No dizziness no chest pain no palpitations. No diaphoresis. Denies any recent illness cough cold congestion nausea vomiting diarrhea black or bloody stools. Not not similar to event this past December 2019. It was much more severe than. Patient did have pacemaker placed back in April 2020. Cardiology in [place]. helped him get to the living room and sat down and he slumped over as if he passed out but he states he was awake and of aware of his surroundings and heard his . No seizure episode. MD complaint: felt faint and almost passed out Related Data Home Medications Medication Instructions Recorded Confirmed bumetanide 2 mg PO BID 07/24/18 08/20/20 carbidopa-levodopa 1.5 tab PO TID 07/24/18 08/20/20 cholecalciferol (vitamin D3) 1,000 unit PO DAILY 07/24/18 08/20/20 [Vitamin D3] metoprolol succinate 25 mg PO DAILY 07/24/18 08/20/20 potassium chloride 10 meq PO BID 07/24/18 08/20/20 selegiline HCl 5 mg PO BID 07/24/18 08/20/20 tolterodine 2 mg PO DAILY 07/24/18 08/20/20 famotidine [Pepcid] 20 mg PO DAILY 12/29/19 08/20/20 nitroglycerin 0.4 mg SUBLINGUAL Q5-15M PRN 12/29/19 08/20/20 warfarin See Rx Instructions .ROUTE .COMPLEX 08/20/20 08/20/20 Previous Rx's Medication Instructions Recorded docusate sodium [Colace] 100 mg PO BID #60 cap 12/31/19 Allergies Allergy/AdvReac Type Severity Reaction Status Date / Time penicillin G Allergy Swelling Verified 04/28/20 10:21 of Lip/Tongue/Throat hydrochlorothiazide AdvReac Verified 04/28/20 10:21 lisinopril AdvReac Cough Verified 04/28/20 10:21 simvastatin [From Zocor] AdvReac Weakness Verified 04/28/20 10:21 Review of Systems Review of Systems Narrative: GENERAL: Denies chills, fatigue, malaise, fever, sweats. HEENT: Denies sinus pain, ear pain, sore throat, difficulty swallowing, dizziness. RESPIRATORY: Denies dyspnea, cough, wheezing, hemoptysis, sputum. CARDIOVASCULAR: Denies chest pain, palpitations, orthopnea, edema, GASTROINTESTINAL: Denies nausea, vomiting, abdominal pain, diarrhea, constipation, melena. : Denies dysuria, frequency, incontinence, hematuria, urinary retention. MUSCULOSKELETAL: denies weakness, joint pain, or bony pain SKIN: Denies rash, skin lesions NEUROLOGIC: Denies weakness, headache, numbness, change in speech, confusion, seizures, incoordination. PSYCHIATRIC: No concerning psychosocial issues. ROS Unobtainable: All systems reviewed & are unremarkable except as noted in HPI and below Patient History Medical History Atrial fibrillation (Acute) Congestive heart failure (Acute) Hypertension (Acute) Parkinsons (Acute) Surgical History No pertinent past surgical history (Acute) Social History household members: spouse Smoking Status: Former smoker alcohol intake: current Smoking Status: Former smoker alcohol intake frequency: holidays/special occasions only Substance Use Type: does not use Exam Narrative Exam Narrative: GENERAL: patient appears stated age. Well-nourished, well-developed patient, in no distress, not toxic HEAD: Atraumatic. Normocephalic. EYES: Pupils equal round and reactive. Extraocular motions intact. No scleral icterus. No injection or drainage. ENT: Nose without bleeding, purulent drainage. Throat without erythema, tonsillar hypertrophy or exudate. Airway patent. NECK: Trachea midline. Non tender CARDIOVASCULAR: Regular rate and rhythm without murmurs, gallops, or rubs. RESPIRATORY: Clear to auscultation. Breath sounds equal bilaterally. No wheezes, rales, or rhonchi. GASTROINTESTINAL: Abdomen soft, non-tender, nondistended. EXTREMITIES: No edema or joint tenderness. BACK: Nontender without deformity or crepitance. No flank tenderness. NEURO: AOx4. SKIN: No rash or erythema of visible areas PSYCH: Not anxious, is cooperative Initial Vital Signs Initial Vital Signs: Vital Signs Temperature 98.5 F 08/20/20 21:08 Pulse Rate 61 08/20/20 21:08 Respiratory Rate 17 08/20/20 21:08 Blood Pressure 180/77 H 08/20/20 21:08 Pulse Oximetry 97 08/20/20 21:08 Course Course Course Narrative: Blood pressure improving. Home meds taken. No new complaints Decision to Admit Date: 08/20/20 Decision to Admit time: 23:42 Orders Ordered: ED Orders 08/20/20 22:06 CT head/brain wo con Stat XR chest 1V Stat EKG-12 Lead Stat 08/20/20 22:30 COVID19 -ED/INPAT/OR/L&D Stat 08/20/20 22:55 Complete Blood Count AUTO DIFF Stat Comprehensive Metabolic Panel Stat Partial Thromboplastin Time Stat Prothrombin Time INR Stat Troponin & CK Cardiac Panel Stat Acetaminophen (Tylenol) 650 mg PO Q6HR PRN PRN Reason: Fever/Mild Pain (1-3) Al Hydrox/Mg Hydrox/Simethicone (Maalox Plus) 30 ml PO Q6HR PRN PRN Reason: Dyspepsia Bumetanide (Bumex) 2 mg PO BID [facility] Calcium Carbonate (Tums) 1,000 mg PO Q4HR PRN PRN Reason: Dyspepsia Carbidopa/Levodopa (Sinemet Er 50-200 Tab) 1.5 each PO TID [facility] Docusate Sodium (Colace) 100 mg PO BID [facility] Enoxaparin Sodium (Lovenox) 40 mg SUBCUT DAILY [facility] Famotidine (Pepcid Ac) 20 mg PO DAILY [facility] Metoprolol Succinate (Toprol Xl) 25 mg PO DAILY [facility] Naloxone HCl (Narcan) 0.2 mg IV Q2MIN PRN PRN Reason: Opiate Reversal Ondansetron HCl (Zofran) 4 mg IV Q8HR PRN PRN Reason: Nausea And Vomiting Polyethylene Glycol (Miralax) 17 gm PO BEDTIME [facility] Potassium Chloride (Klor-Con M10) 10 meq PO BID [facility] Selegiline (Eldepryl) 5 mg PO BID TC Tolterodine Tartrate (Detrol La) 2 mg PO DAILY TC Warfarin Sodium (Coumadin) 5 mg PO .COMPLEX TC Discontinued Medications Sodium Chloride (Normal Saline 0.9%) 500 mls @ 1,000 mls/hr IV BOLUS ONE Stop: 08/21/20 00:09 Last Infusion: 08/21/20 00:30 Dose: 1,000 mls/hr Documented by: Admin: 08/21/20 00:00 Dose: 1,000 mls/hr Documented by: BETTY Influenza Virus Vaccine (Flu Hd Vaccine) 0.7 ml IM .ONCE ONE Stop: 08/21/20 01:32 Reevaluation(s) Reevaluation #1: Patient and agree for admission. Review results with him Time: 23:42 Consultations Consultation #1: Spoke with hospitalistJeremías, will admit observation reviewed possible need for echocardiogram Time: 23:42 Vital Signs Vital signs: Vital Signs - 8 hr 08/20/20 21:08 08/20/20 21:16 08/20/20 21:30 Temperature 98.5 F Pulse Rate 61 53 L 59 L Respiratory Rate 17 19 Blood Pressure 180/77 H Pulse Oximetry 97 97 95 08/20/20 21:31 08/20/20 22:00 08/20/20 22:01 Temperature Pulse Rate 57 L 63 61 Respiratory Rate 20 16 21 Blood Pressure 154/72 H 215/95 H Pulse Oximetry 95 97 97 08/20/20 22:14 08/20/20 22:30 08/20/20 22:51 Temperature Pulse Rate 64 67 62 Respiratory Rate 21 22 19 Blood Pressure 140/65 158/69 H Pulse Oximetry 97 97 97 08/20/20 23:00 08/20/20 23:30 Temperature Pulse Rate 63 60 Respiratory Rate 22 17 Blood Pressure 149/64 H 139/63 Pulse Oximetry 96 98 MDM - Syncope Differential Diagnosis Differential diagnosis: Likely syncope due to orthostatic hypotension, vasovagal syncope, dehydration and other (TIA) Medical Records Attestation: I reviewed the patient's medical records. Lab Data Attestation: I reviewed the patient's lab results. Result diagrams: 08/20/20 22:55 08/20/20 22:55 Labs: Lab Results 10/07/20 10/07/20 10/07/20 Range/Units 22:30 22:55 22:55 WBC 10.2 (4.5-11.0) X10^3/uL RBC 4.19 L (4.5-5.9) X10^6/uL Hgb 12.4 L (13.5-17.5) g/dL Hct 37.0 L (41-53) % MCV 88.4 (80-100) fL MCH 29.5 (26-34) PG MCHC 33.4 (30-36) % RDW 15.0 H (11.6-14.8) % Plt Count 183 (150-400) X10^3/uL Neut % (Auto) 73.1 (50-75) % Lymph % (Auto) 14.0 L (25-40) % [place] % (Auto) 9.3 (3-14) % Eos % (Auto) 3.3 (2-4) % Baso % (Auto) 0.3 (0-2) % Neut # (Auto) 7400 H (0735-6883) /uL Lymph # (Auto) 1400 (9790-7143) /uL [place] # (Auto) 900 (0-900) /uL Eos # (Auto) 300 (0-450) /uL Baso # (Auto) 0 (0-100) /uL PT 28.4 H (10.1-12.7) SECONDS INR 2.5 H (0.9-1.3) APTT 41 H D (26.4-36.2) SECONDS Sodium (137-145) mmol/L Potassium (3.4-5.1) mmol/L Chloride (98-107) mmol/L Carbon Dioxide (22-32) mmol/L BUN (9-20) mg/dL Creatinine (0.66-1.25) mg/dL Estimated GFR (>60) mL/min BUN/Creatinine Ratio (6-22) Glucose (80-110) mg/dL Calcium (8.4-10.2) mg/dL Total Bilirubin (0.2-1.3) mg/dL AST (17-59) IU/L ALT (<50) IU/L Alkaline Phosphatase (38-126) U/L Total Creatine Kinase (55-170) U/L CK-MB (CK-2) CK-MB (CK-2) Rel Index Troponin I (0.01-0.034) ng/mL Total Protein (6.3-8.2) g/dL Albumin (3.5-5.0) g/dL Globulin (1.7-4.1) g/dL Albumin/Globulin Ratio (1.0-2.8) COVID-19 PCR Negative (Negative) 08/20/20 Range/Units 22:55 WBC (4.5-11.0) X10^3/uL RBC (4.5-5.9) X10^6/uL Hgb (13.5-17.5) g/dL Hct (41-53) % MCV (80-100) fL MCH (26-34) PG MCHC (30-36) % RDW (11.6-14.8) % Plt Count (150-400) X10^3/uL Neut % (Auto) (50-75) % Lymph % (Auto) (25-40) % [place] % (Auto) (3-14) % Eos % (Auto) (2-4) % Baso % (Auto) (0-2) % Neut # (Auto) (7005-6545) /uL Lymph # (Auto) (2159-3221) /uL [place] # (Auto) (0-900) /uL Eos # (Auto) (0-450) /uL Baso # (Auto) (0-100) /uL PT (10.1-12.7) SECONDS INR (0.9-1.3) APTT (26.4-36.2) SECONDS Sodium 137 (137-145) mmol/L Potassium 3.4 (3.4-5.1) mmol/L Chloride 97 L (98-107) mmol/L Carbon Dioxide 37 H (22-32) mmol/L BUN 28 H (9-20) mg/dL Creatinine 1.30 H (0.66-1.25) mg/dL Estimated GFR 52.9 L (>60) mL/min BUN/Creatinine Ratio 21.5 (6-22) Glucose 156 H (80-110) mg/dL Calcium 9.2 (8.4-10.2) mg/dL Total Bilirubin 0.8 (0.2-1.3) mg/dL AST 25 (17-59) IU/L ALT < 4 (<50) IU/L Alkaline Phosphatase 85 (38-126) U/L Total Creatine Kinase 41 L (55-170) U/L CK-MB (CK-2) TNP CK-MB (CK-2) Rel Index TNP Troponin I 0.022 (0.01-0.034) ng/mL Total Protein 7.4 (6.3-8.2) g/dL Albumin 3.8 (3.5-5.0) g/dL Globulin 3.6 (1.7-4.1) g/dL Albumin/Globulin Ratio 1.1 (1.0-2.8) COVID-19 PCR (Negative) Imaging Data CT scan - head: Radiologist's Impression: No acute intracranial findings Chest x-ray: Attestation: I personally reviewed and interpreted this imaging study as follows: My Impression: No acute process ECG Data Attestation: I personally reviewed and interpreted this ECG as follows: Interpretation: Atrial fibrillation with occasional ventricular paced complexes. Ventricular rate 65. No ST elevation or depression. MDM Narrative Medical decision making narrative: Appropriate for admission observation. No prior history here of echocardiogram. Would benefit having echocardiogram during admission. Blood pressure improved with home medications Discharge Plan Departure Patient Disposition: Admitted as Observation Clinical Impression: Near syncope Discharge Date/Time: 08/21/20 00:50 Admit Date/Time: 08/20/20 23:41 Admit Provider: Cristiano Go
[2020-08-20 22:58] LABS: COVID19 -Nasal RAPID Negative (Negative)
[2020-08-20 23:06] LABS: Add Manual Diff / Slide Review NO; Basophils Absolute Auto 0 /uL (0-100); Basophils Percent Auto 0.3 % (0-2); Eosinophils Absolute Auto 300 /uL (0-450); Eosinophils Percent Auto 3.3 % (2-4); Hemoglobin 12.4 g/dL (13.5-17.5); Lymphocytes Absolute Auto 1400 /uL (1100-4500); Mean Corpuscular HGB Conc 33.4 % (30-36); Mean Corpuscular Hemoglobin 29.5 PG (26-34); Mean Corpuscular Volume 88.4 fL (80-100); Monocytes Absolute Auto 900 /uL (0-900); Monocytes Percent Auto 9.3 % (3-14); Neutrophils Absolute Auto 7400 /uL (1500-7000); Neutrophils Percent Auto 73.1 % (50-75); Platelet Count 183 X10^3/uL (150-400); Red Blood Cell Count 4.19 X10^6/uL (4.5-5.9); White Blood Cell Count 10.2 X10^3/uL (4.5-11.0)
[2020-08-20 23:12] LABS: INR 2.5 (0.9-1.3); Prothrombin Time 28.4 SECONDS (10.1-12.7)
[2020-08-20 23:15] LABS: PTT Partial Thromboplastin Tim 41 SECONDS (26.4-36.2)
[2020-08-20 23:22] LABS: Alanine Aminotransferase < 4 IU/L (<50); Albumin 3.8 g/dL (3.5-5.0); Albumin Globulin Ratio 1.1 (1.0-2.8); Alkaline Phosphatase 85 U/L (38-126); Aspartate Aminotransferase 25 IU/L (17-59); BUN Creatinine Ratio 21.5 (6-22); Bilirubin Total 0.8 mg/dL (0.2-1.3); Blood Urea Nitrogen 28 mg/dL (9-20); Calcium 9.2 mg/dL (8.4-10.2); Carbon Dioxide 37 mmol/L (22-32); Chloride 97 mmol/L (98-107); Creatine Kinase 41 U/L (55-170); Estimated Glomerular Filt Rate 52.9 mL/min (>60); Globulin 3.6 g/dL (1.7-4.1); Glucose 156 mg/dL (80-110); HEMOLYSIS < 15 (0-50); Potassium 3.4 mmol/L (3.4-5.1); Sodium 137 mmol/L (137-145); Total Protein 7.4 g/dL (6.3-8.2)
[2020-08-20 23:32] LABS: Troponin I 0.022 ng/mL (0.01-0.034)
[2020-08-21] VITALS (8 sets, daily range): BP systolic 135–176; BP diastolic 64–85; PULSE 54–70; RESP 16–20; TEMP 36.1–36.5; O2SAT 95–100; BMI 28.5
[2020-08-21] MEDS: SODIUM CHLORIDE 0.9% 500 ML 1000 ML IV
--- NOTE | 2020-08-21 01:02 | P.HP_ITS ---
History of Present Illness History of Present Illness Date Patient Seen: 08/21/20 Time Patient Seen: 01:02 Chief complaint: Near Syncope Narrative: Mr. Tarik Marquez is an 80-year-old male with a past medical history significant for Parkinson's disease, hypertension, paroxysmal atrial fibrillation on warfarin anticoagulation and status post intracardiac permanent pacemaker implantation, heart failure and prostate cancer (s/p prostatectomy with insertion of an artificial sphincter) who presents to the ER following a near syncopal episode. The patient was ambulating with his walker back from the bathroom when he became weak and his observed him having difficulty ambulating. She has may need help to which he said yes she provided care for him to sit down on. Which time he was pale and diaphoretic per his 's report. Patient denies complaints of vertigo or dizziness and has had no chest pain and denies palpitations he had no headache, numbness or tingling. EMS was summoned and the patient was able to ambulate with assistance of medics. Patient reports no complaints of fevers or chills, headaches, nasal congestion or sore throat. He denies chest pain or palpitations. He reports no shortness of breath cough or wheezing. He denies abdominal pain, nausea or vomiting. He continues to have intermittent constipation improved with regular use MiraLax and stool softener. He denies worsening leg edema and his validates that is leg edema is at baseline. Upon arrival to the ER the patient has a temperature of 98.5?, heart rate of 61, blood pressure 180/77, respirations 17 saturating 97% on room air. A head CT is obtained which finds no acute intracranial processes. Chest x-ray is unremarkable with no reported acute cardiopulmonary changes. On laboratory analysis the patient has a white count of 10.2, hemoglobin of 10.4, hematocrit 37.0 and platelets of 183. His PT is 284 with an INR of 2.5 and a PTT of 41. He has a potassium of 3.4 and a BUN of 28 and creatinine of 1.3. His nonfasting glucose is 156. His liver functions are all within normal limits and he has a total CK of 41 and a troponin of 0.022. Do not lead EKG finds atrial fibrillation with slow ventricular response of 57 beats per minute with int ermittent paced beats and PVCs, no ST or T-wave changes or evidence of infarct noted. The patient received a 1 L normal saline bolus in the ER and is admitted to the hospitalist service for near syncopal episode and Parkinson's. Patient History Medical History Atrial fibrillation (Acute) Congestive heart failure (Acute) History of gastroesophageal reflux (GERD) (Acute) History of prostate cancer (Acute) History of warfarin therapy (Inactive) Hypertension (Acute) Parkinsons (Acute) Surgical History History of colonoscopy (Acute) History of penile implant (Acute) History of permanent cardiac pacemaker placement (Acute) History of prostatectomy (Acute) Family & Social History Social History: household members spouse Safety & Behavioral: Feels Safe in Current Yes Environment Tobacco & Substance use: Smoking Status Former smoker alcohol intake current alcohol intake frequency holiday/special occasion Substance Use Type does not use Meds Home Medications and Allergies Home Medications Medication Instructions Recorded Confirmed Type bumetanide 2 mg PO BID 07/24/18 08/20/20 History carbidopa-levodopa 1.5 tab PO TID 07/24/18 08/20/20 History cholecalciferol (vitamin D3) 1,000 unit PO DAILY 07/24/18 08/20/20 History [Vitamin D3] metoprolol succinate 25 mg PO DAILY 07/24/18 08/20/20 History potassium chloride 10 meq PO BID 07/24/18 08/20/20 History selegiline HCl 5 mg PO BID 07/24/18 08/20/20 History tolterodine 2 mg PO DAILY 07/24/18 08/20/20 History famotidine [Pepcid] 20 mg PO DAILY 12/29/19 08/20/20 History nitroglycerin 0.4 mg SUBLINGUAL Q5-15M PRN 12/29/19 08/20/20 History docusate sodium [Colace] 100 mg PO BID #60 cap 12/31/19 08/20/20 Rx warfarin See Rx Instructions .ROUTE .COMPLEX 08/20/20 08/20/20 History Allergies Allergy/AdvReac Type Severity Reaction Status Date / Time penicillin G Allergy Swelling Verified 04/28/20 10:21 of Lip/Tongue/Throat hydrochlorothiazide AdvReac Verified 04/28/20 10:21 lisinopril AdvReac Cough Verified 04/28/20 10:21 simvastatin [From Zocor] AdvReac Weakness Verified 04/28/20 10:21 Review of Systems Review of Systems ROS: Yes All systems reviewed with the patient and are negative except as otherwise documented Exam Vital Signs (past 8 hours): - 08/20/20 21:08 08/20/20 21:16 08/20/20 21:30 Temperature 98.5 F Pulse Rate 61 53 L 59 L Respiratory Rate 17 19 Blood Pressure 180/77 H Pulse Oximetry 97 97 95 08/20/20 21:31 08/20/20 22:00 08/20/20 22:01 Temperature Pulse Rate 57 L 63 61 Respiratory Rate 20 16 21 Blood Pressure 154/72 H 215/95 H Pulse Oximetry 95 97 97 08/20/20 22:14 08/20/20 22:30 08/20/20 22:51 Temperature Pulse Rate 64 67 62 Respiratory Rate 21 22 19 Blood Pressure 140/65 158/69 H Pulse Oximetry 97 97 97 08/20/20 23:00 08/20/20 23:30 08/21/20 00:00 Temperature Pulse Rate 63 60 68 Respiratory Rate 22 17 19 Blood Pressure 149/64 H 139/63 Pulse Oximetry 96 98 99 08/21/20 00:04 08/21/20 00:30 Temperature Pulse Rate 61 60 Respiratory Rate 20 20 Blood Pressure 161/70 H Pulse Oximetry 99 100 Oxygen Delivery Method Room Air Narrative Exam Narrative: GENERAL APPEARANCE: well developed, well nourished, in no acute distress. HEENT: Normocephalic, PERRLA, conjunctiva clear, EOMs intact without nystagmus, no sinus tenderness to percussion, no rhinorrhea, mucous membranes are pink and moist. NECK/THYROID: neck supple, no JVD, no carotid bruit, no thyromegaly, trachea midline. LYMPH NODES: no cervical or supraclavicular lymphadenopathy. SKIN: [place], warm and dry, no visible lesions, rashes, ulcerations or petechiae. HEART: Irregularly irregular rhythm, S1-S2, no murmur, no rubs or gallops, brisk capillary refill, no edema LUNGS: Diminished breath sounds bilateral bases without coarseness crackles or wheezing, no cough present. CHEST: Symmetrical movement, no accessory muscle use. ABDOMEN: Soft, no distention, no abdominal tenderness, right side abdominal discomfort on palpation, no flank or suprapubic tenderness, active bowel tones. BACK: nontender to palpation, stooped posture EXTREMITIES: moves all extremities, strength is 5/5 and symmetrical, no deformities or joint effusions. NEUROLOGIC: AAO x4, no lateralizing symptoms, cranial nerves II-XII grossly i ntact, bradykinesia, sensation intact to light touch, hearing grossly normal to speech. PSYCH: Good judgment, cooperative, appropriate with stable behavior Objective Labs Result Diagrams: 08/20/20 22:55 08/20/20 22:55 Labs: Laboratory Results - last 24 hr 08/20/20 08/20/20 08/20/20 22:30 22:55 22:55 WBC 10.2 RBC 4.19 L Hgb 12.4 L Hct 37.0 L MCV 88.4 MCH 29.5 MCHC 33.4 RDW 15.0 H Plt Count 183 Neut % (Auto) 73.1 Lymph % (Auto) 14.0 L [place] % (Auto) 9.3 Eos % (Auto) 3.3 Baso % (Auto) 0.3 Neut # (Auto) 7400 H Lymph # (Auto) 1400 [place] # (Auto) 900 Eos # (Auto) 300 Baso # (Auto) 0 PT 28.4 H INR 2.5 H APTT 41 H D Sodium Potassium Chloride Carbon Dioxide BUN Creatinine Estimated GFR BUN/Creatinine Ratio Glucose Calcium Total Bilirubin AST ALT Alkaline Phosphatase Total Creatine Kinase CK-MB (CK-2) CK-MB (CK-2) Rel Index Troponin I Total Protein Albumin Globulin Albumin/Globulin Ratio COVID-19 PCR Negative 08/20/20 22:55 WBC RBC Hgb Hct MCV MCH MCHC RDW Plt Count Neut % (Auto) Lymph % (Auto) [place] % (Auto) Eos % (Auto) Baso % (Auto) Neut # (Auto) Lymph # (Auto) [place] # (Auto) Eos # (Auto) Baso # (Auto) PT INR APTT Sodium 137 Potassium 3.4 Chloride 97 L Carbon Dioxide 37 H BUN 28 H Creatinine 1.30 H Estimated GFR 52.9 L BUN/Creatinine Ratio 21.5 Glucose 156 H Calcium 9.2 Total Bilirubin 0.8 AST 25 ALT < 4 Alkaline Phosphatase 85 Total Creatine Kinase 41 L CK-MB (CK-2) TNP CK-MB (CK-2) Rel Index TNP Troponin I 0.022 Total Protein 7.4 Albumin 3.8 Globulin 3.6 Albumin/Globulin Ratio 1.1 COVID-19 PCR Assessment & Plan Assessment & Plan narrative: Tarik Marquez is an 79-year-old male with a past medical history significant for hypertension, atrial fibrillation on warfarin, Parkinson's disease, CHF unknown type, former tobacco dependence, and prostate cancer status post insertion of an artificial sphincter who presented to the ED with near syncopal episode. 1. Near syncope, acute, active. -patient describes feeling lightheaded dizzy without room spinning or visual changes. He describes fatigue and weakness in his arms, his describes pallor and diaphoresis. -patient denies complaints of fevers or chills chest pain or shortness of breath. He has had no chest pain or palpitations. He was returning from the bathroom and had a normal stool without hematochezia or melena. -patient now states he is baseline which is confirmed by the patient's . 2. Paroxysmal atrial fibrillation on warfarin, chronic, present on admission, stable. -patient anticoagulated with warfarin with an INR of 2.5. Continue warfarin dosing per home regimen 5 mg daily with warfarin 2.5 on Wednesdays and Saturdays. -patient had a permanent pacemaker implantation in April 2020. -potassium level is 3.4 will replete potassium with 40 mEq KCL by mouth. Will obtain a magnesium level. -Continue metoprolol succinate 25 mg daily. 3. Heart failure, unknown type, present on admission, stable. -no acute exacerbation of CHF breath sounds clear but diminished bibasilar, no cough or shortness of breath. Patient denies change in bilateral leg edema, presently 2+. No overt symptoms of decompensated heart failure. -Continue home bumetanide 2 mg twice daily. -Continued monitor electrolytes and replete as necessary. 4. BPH with urinary retention, chronic, present on admission, stable. -Patient has a history of prostate cancer status post prostatectomy with lymph node clips and penile implant in place and artificial sphincter. -no palpable bladder distension, will bladder scan as needed. 5. Parkinson's disease, chronic, present on admission, stable. -Continued home carbidopa/levodopa 1.5 tab 3 times daily. -Patient has had intermittent moderate to severe constipation improved with MiraLax 17 g daily and Colace 100 mg twice daily. -Ordered Dulcolax suppository as needed for constipation. 6. GERD, chronic, present on admission, stable. -Continue home Protonix 40 mg daily. VTE prophylaxis: SCDs, enoxaparin IV fluid: Saline lock Diet: Heart healthy low-sodium Code status: Full code, patient designates his to be surrogate decision maker. The patient is admitted to the hospital for further evaluation and monitoring secondary to in near syncopal episode in the setting of Parkinson's and cardiac disease. The patient is admitted as observation with expected length of stay to be less than 2 midnights.
[2020-08-21] MEDS: INFLUENZA HD VACCINE 0.7 ML SYRINGE IM (02:09)
[2020-08-21 02:44] LABS: Bacteria Urine None Seen; RBC Urine None Seen (0-5/HPF); WBC Urine None Seen (0-5/HPF)
[2020-08-21 02:47] LABS: Appearance Urine UA CLEAR; Bilirubin Urine UA NEGATIVE (NEGATIVE); Color Urine UA YELLOW; Culture Indicated Urine Cult Not Indicated; Glucose Urine UA NEGATIVE (Negative); Ketones Urine UA NEGATIVE (NEGATIVE); Leukocyte Esterase Urine UA NEGATIVE (NEGATIVE); Nitrite Urine UA NEGATIVE (Negative); Occult Blood Urine UA NEGATIVE (Negative); Protein Urine UA NEGATIVE (Negative); Urine Comments Microscopic Normal; Urobilinogen Urine UA 0.2 E.U./dL (0.2)
[2020-08-21] MEDS: POTASSIUM CHLORIDE 20 MEQ TAB 40 MEQ PO ×2 (03:04→07:03)
--- NOTE | 2020-08-21 03:31 | PC.ADMIT ---
[id number] 8th e Admission Note: The patient,Tarik Marquez,80 y/o, was given written information regarding hospital policies, unit procedures and contact persons. Patient's smoking status: Former smoker. Pt arrived, w/his who will stay the night, via gurney to room and self transferred into bed w/a 2 person assist. Pt is very unsteady on his feet, but is A&Ox4 and uses call light appropriately. 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 Steristrips in place on L top of head from recent Mohs procedure. Pt had a pacemaker placed in April and is in Afib w/BBB and frequent PVC's. BLE edema 2+ at baseline. Pt had a tooth extraction prior to his near syncopal event. He cannot use a straw while his mouth is healing. Admit and assessment completed, med req completed in ED. Flu vaccine given. Vital Signs - 8 hr 08/20/20 21:08 08/20/20 21:16 08/20/20 21:30 Temperature 98.5 F Pulse Rate 61 53 L 59 L Respiratory Rate 17 19 Blood Pressure 180/77 H Pulse Oximetry 97 97 95 08/20/20 21:31 08/20/20 22:00 08/20/20 22:01 Temperature Pulse Rate 57 L 63 61 Respiratory Rate 20 16 21 Blood Pressure 154/72 H 215/95 H Pulse Oximetry 95 97 97 08/20/20 22:14 08/20/20 22:30 08/20/20 22:51 Temperature Pulse Rate 64 67 62 Respiratory Rate 21 22 19 Blood Pressure 140/65 158/69 H Pulse Oximetry 97 97 97 08/20/20 23:00 08/20/20 23:30 08/21/20 00:00 Temperature Pulse Rate 63 60 68 Respiratory Rate 22 17 19 Blood Pressure 149/64 H 139/63 Pulse Oximetry 96 98 99 08/21/20 00:04 08/21/20 00:30 08/21/20 00:45 Temperature 97.7 F Pulse Rate 61 60 70 Respiratory Rate 20 20 18 Blood Pressure 161/70 H 170/85 H Pulse Oximetry 99 100 95
[2020-08-21 06:15] LABS: Add Manual Diff / Slide Review NO; Basophils Absolute Auto 0 /uL (0-100); Basophils Percent Auto 0.5 % (0-2); Eosinophils Absolute Auto 500 /uL (0-450); Eosinophils Percent Auto 6.8 % (2-4); Hematocrit 34.1 % (41-53); Hemoglobin 11.5 g/dL (13.5-17.5); Lymphocytes Absolute Auto 1800 /uL (1100-4500); Lymphocytes Percent Auto 23.2 % (25-40); Mean Corpuscular HGB Conc 33.8 % (30-36); Mean Corpuscular Hemoglobin 29.6 PG (26-34); Mean Corpuscular Volume 87.6 fL (80-100); Monocytes Absolute Auto 900 /uL (0-900); Monocytes Percent Auto 11.7 % (3-14); Neutrophils Absolute Auto 4400 /uL (1500-7000); Neutrophils Percent Auto 57.8 % (50-75); Platelet Count 169 X10^3/uL (150-400); Red Blood Cell Count 3.89 X10^6/uL (4.5-5.9); Red Cell Distribution Width 14.9 % (11.6-14.8); White Blood Cell Count 7.7 X10^3/uL (4.5-11.0)
[2020-08-21 06:25] LABS: BUN Creatinine Ratio 21.5 (6-22); Blood Urea Nitrogen 28 mg/dL (9-20); Carbon Dioxide 36 mmol/L (22-32); Chloride 98 mmol/L (98-107); Estimated Glomerular Filt Rate 52.9 mL/min (>60); Glucose 93 mg/dL (80-110); HEMOLYSIS < 15 (0-50); Magnesium 2.1 mg/dL (1.6-2.3); Potassium 3.4 mmol/L (3.4-5.1); Sodium 139 mmol/L (137-145)
[2020-08-21 06:31] LABS: Troponin I 0.018 ng/mL (0.01-0.034)
[2020-08-21] MEDS: SODIUM CHLORIDE 0.9% FLUSH 10 ML IV (08:20)
[2020-08-21] MEDS: polyethylene glycoL 3350 17 GM POWD.PACK PO (08:31)
[2020-08-21] MEDS: DOCUSATE 100 MG CAPSULE PO (08:32)
[2020-08-21] MEDS: POTASSIUM CHLORIDE 10 MEQ TAB PO (08:33)
[2020-08-21] MEDS: FAMOTIDINE 20 MG TABLET PO (08:33)
[2020-08-21] MEDS: ENOXAPARIN 40 MG/0.4 ML SYRINGE SUBCUT (08:35)
[2020-08-21] MEDS: TOLTERODINE LA 2 MG CAP PO (08:38)
[2020-08-21] MEDS: CARBIDOPA-LEVODOPA ER 50/200 TABLET 1.5 EACH PO ×2 (08:38→14:46)
[2020-08-21] MEDS: SELEGILINE 5 MG CAPSULE PO (08:38)
[2020-08-21] MEDS: BUMETANIDE 1 MG TABLET 2 MG PO (08:38)
--- NOTE | 2020-08-21 11:10 | PT.IIE ---
Surgical History (Last Reviewed 08/21/20 @ 02:54 by KONG Bartholomew) History of colonoscopy (Acute) History of penile implant (Acute) History of permanent cardiac pacemaker placement (Acute) History of prostatectomy (Acute) Medical History (Last Reviewed 08/21/20 @ 04:23 by KONG Bartholomew) Atrial fibrillation (Acute) Congestive heart failure (Acute) History of gastroesophageal reflux (GERD) (Acute) History of prostate cancer (Acute) History of warfarin therapy (Inactive) Hypertension (Acute) Parkinsons (Acute) Physical Therapy Inpatient Evaluation/Re-Eval M1 PT/OT-IP Prior Functional Status Start: 08/21/20 09:00 Freq: NEEDED Status: Active Protocol: Document 08/21/20 10:39 AW (Rec: 08/21/20 11:10 AW [id number]) Medical Review Prior Functional Status Medical History Reviewed Yes Communication Pt has hypophonia typical of Parkinson's disease. Pt is able to make needs known. Mobility and Gait Pt uses a SPC or FWW 100% of the time. He states he can walk around the block with either device. Pt has extensive falls history with recent increase in frequency up to twice monthly, usually on uneven ground. Pt has also had two recent falls from his bed. Activities of Daily Living and IADL's Pt requires occasional assist with LB dressing and with showers. His , Katherin, provides all assist. Prior Functional Level (Other details) Pt was planning to go to PT but was unable due to COVID shutdown and restrictions. Social History Household Members spouse Living Arrangements House Number of Floors (Floors) Two Floors Number of Stairs To Enter/Railing? Level entry from garage. Pt uses a stairlift to gain access to the second floor where he typically stays once inside. Home Environment High Toilet,Walk in Shower Home Equipment Front Wheel Walker,Quad Cane, Straight Cane,Shower Seat without Backrest,Lift Recliner ,Grab Bars Near Toilet,Grab Bars In Shower Employment Status Retired Additional Social History Comment Pt lives with his , Katherin, who provides all assist M2 PT-IP Current Condition Start: 08/21/20 09:00 Freq: NEEDED Status: Active Protocol: Document 08/21/20 10:39 AW (Rec: 08/21/20 11:10 AW [id number]) Physical Therapy Current Condition Current Condition Evaluation Date 08/21/20 Treatment Diagnosis syncope, PD, impaired balance, freezing of gait, difficulty in walking Onset Date 08/20/20 Precautions Other Precautions high falls risk M3 PT-IP Subjective Start: 08/21/20 09:00 Freq: NEEDED Status: Active Protocol: Document 08/21/20 10:39 AW (Rec: 08/21/20 11:10 AW [id number]) Subjective Physical Therapy Visit Type Type Initial Evaluation Visit Start Time 10:05 Visit Stop Time 10:37 Total Visit Minutes 32 Physical Therapy Visit Comments Patient Comments Pt is willing to participate with PT Patient Goals Pt hopes to discharge today Therapy Pain Assessment Pain When Pain Assessed During Mobility Pain Present Pain Present Denied Pain M4 PT-IP Mobility and Gait Start: 08/21/20 09:00 Freq: NEEDED Status: Active Protocol: Document 08/21/20 10:39 AW (Rec: 08/21/20 11:10 AW [id number]) PT-Bed Mobility Assessment Supine to Sit Supine to Sit Minimal Assistance,1 Person Assistance,Bedrails Scooting Scooting to Edge of Bed Contact Guard Assistance PT-Transfer Assessment Sit to and From Stand Sit to and from Stand Minimal Assistance,Moderate Assistance,1 Person Assistance ,Use of Upper Extremities Equipment Transfer Assistive Device Gait Belt,Front Wheeled Walker Orthotic/Prosthetic Devices or Brace: No Transfers Transfer Destination Chair Transfer Technique pt ambulated with FWW Transfer Ability Level of Assist Contact Guard Assistance,1 Person Assistance,Use of Upper Extremities Comments Mobility Comments Pt agreed to mobilize with PT. RN assisted during assessment of orthostatic VS. Supine BP was 135/68 HR 60. With HOB flat, pt required min assist to sit up in the bed and min assist to maintain sitting balance due to posterior lean which pt was unable to correct independently. Sitting BP was 152/64 HR 57. Pt required mod assist to stand from the bed in lowest position using FWW. Cues were given to push off from the bed vs pulling on the FWW. Standing BP was 149/76 HR 63. Standing balance was poor but pt was able to correct posterior lean at least briefly in response to cues. Pt required min assist to ambulate ~60 feet with FWW and max cues to maintain appropriate distance from trunk to walker frame. Pt experienced one freezing of gait episode during this trial which occurred near the doorway. Pt ambulated to the chair with FWW and transferred CGA and cues to use BUE on chair arms to control descent. Pt was positioned with call light and all needs in reach and chair alarm armed for safety. Gait Assessment Gait Gait Assistance Required: Minimum Assistance,1 Person Assist Distance (Feet) 60 Able to Maintain Weight Bearing Status No During Gait Assistive Devices Assistive Device Gait Belt,Front Wheeled Walker Orthotic/Prosthetic Devices or Brace: No Gait Deviations General Gait Pattern Decreased Stride Length, Decreased Feet Clearance, Festinating,Flexed Trunk,Wide Based Gait Factors Limiting Gait Function Factors Limiting Gait Function Decreased Sensation, Incoordination,Poor Balance, Poor Safety Awareness Comments Gait Comments See mobility comments for details. Stair Climbing Assessment Comments Stair Climbing Comments Not assessed. Pt uses a stair lift at home. PT-Balance Assessment Sitting Balance and Reactions Static Sitting Balance Ability Poor Dynamic Sitting Balance Ability Poor Standing Balance and Reactions Static Standing Balance Ability Poor Dynamic Standing Balance Ability Poor Device Used FWW M5 PT-IP Objective Assessments Start: 08/21/20 09:00 Freq: NEEDED Status: Active Protocol: Document 08/21/20 10:39 AW (Rec: 08/21/20 11:10 AW [id number]) Orientation Orientation/Cognition Level of Alertness Alert Orientation Name,Day of Week,Place, Situation Language Function Ability No Deficits Noted Safety Awareness Decreased Safety Awareness Gross Range of Motion Upper Extremity ROM Assessment Within Functional Limits Lower Extremity ROM Assessment Within Functional Limits Strength Lower Extremity Strength Assessment Bilaterally Impaired Hip 4/5 Knee 4+/5 Ankle 4/5 Coordination Assessment Gross Coordination Gross Coordination WNL Sensation Assessment Sensation Proprioception (Position) Impaired Comments Sensation Comments Pt with hypokinesia and bradykinesia typical of PD M6 PT-IP Treatment Start: 08/21/20 09:00 Freq: NEEDED Status: Active Protocol: Document 08/21/20 10:39 AW (Rec: 08/21/20 11:10 AW [id number]) Physical Therapy Treatment Education Education Provided Precautions,Safety Other Treatments Other Treatment Performed Provided education on role of PT, plan of care, safe use of FWW, and amplitude-based physical therapy for hypo and bradykinesia. M7 PT-IP Assessment and Plan Start: 08/21/20 09:00 Freq: NEEDED Status: Active Protocol: Document 08/21/20 10:39 AW (Rec: 08/21/20 11:10 AW [id number]) PT Summary Assessment and Plan Potential Rehabilitation Potential Fair Status of Condition at Evaluation Stable Summary Impairments Strength,Balance,Sensation,Bed Mobility,Transfers,Gait, Activity Tolerance Assessment Summary Tarik is an 80 yo man seen for PT evaluation with admitting diagnosis of near- syncope and increasing frequency of falls. Pt has Parkinson's disease and presents with hypophonia, hypokinesia, and bradykinesia typical of PD. He is followed by a neurologist at [facility]. Pt denies any recent changes to carbidopa/levodopa dosing. At baseline, pt is modified independent with use of SPC and FWW. He admits to fluctuations in his mobility independence related to medication schedule. On evaluation, orthostatic vital signs were negative. Pt required min to mod assist with bed mobility, transfers, and gait with FWW. Pt's provides all necessary assist at home and attests that his mobility during evaluation is close to baseline. This pt will be safe to discharge home with assist once medically stable. Discussed LSVT BIG and LOUD therapy with pt and his who expressed interest in this amplitude-based modality . Goals Bed Mobility Goal Standby Assistance Transfer Goal Standby Assistance,Front Wheeled Walker Gait Goal Standby Assistance,Front Wheel Walker Gait Distance 100 Days to Meet Goals 5 Frequency of Treatment Frequency Of Treatment Once a Day Treatment Plan Physical Therapy Treatment Plan Bed Mobility Training,Transfer Training,Gait Training, Therapeutic Exercise,Balance Retraining,Discharge Planning, Hot or Cold Pack,Neuromuscular Re-ed,Coordination Retraining Recommendations To Nursing Amount of Assist Needed 1 Person Assist Discharge Recommendations PT Discharge Recommendations Home with Assistance, Outpatient PT Other Discharge Recommendations Referral to LSVT-trained PT and Speech to address hypophonia, hypokinesia, and bradykinesia. Transportation Needs at Discharge Private Vehicle
--- NOTE | 2020-08-21 12:17 | PC.NURSE ---
Addendum entered by Darlin Kee R.N. 08/21/20 15:23: At 1445, discharge summary packet reviewed with pt and his Katherin. Pt's physician office will call Katherin to make follow up appointment as office was unable to make appointment at the time this RN called. Katherin aware. No new prescriptions. Aware of dose change of Bumex for one day period then change to regular dosing per instructions on physician discharge report. No further voiced concerns. Pt left unit in no distress at 1510 via wheelchair with innersole maker escort. Katherin present to drive pt home. Original Note: Day Shift- Pt A&OX4, able to make needs known using call light. Pt's Katherin in/out of room, pt's main caregiver at home and good pt historian. Pt OOB with PT, ambulated in hallway short distance from room to outside room 215 and back to recliner chair. 1PA with walker and gait belt.pt needs reminders to stand straight, look forward. Orthostatic BP/P performed by PT prior to OOB movement at 1020. Lying 135/68 p-60 Sitting 152/64 p-57 Standing 149/76 p-63 High fall risk precautions in place, bed and chair alarm. Pt stated last having a fall 1 month ago, states usually falls every few weeks.
--- NOTE | 2020-08-21 12:55 | CM.DANOTE ---
Addendum entered by Kamryn Kaplan LPN 08/21/20 14:49: A dc order for home is noted. Met now with pt and his Katherin, here to take pt home. ELVIRA Saeed is just going over the d/c instuctions. Pt will be following up with his neurologist: appt already in place for end of this month. ELVIRA Saeed confirms that she has contacted pt's PCP's clinic and that the triage nurse will be calling them to set up an appt. They confirm that PCP: [facility] and so pt is assigned to [facility]. Home today as per above. Original Note: Discharge Planning/Care Management DCP: assessment: Case received, EMR reviewed and met briefly with pt during Team Bedside Rounds. Dr. Rhodes explained to all that a d/c home today was likely and he wanted pt to mobilize with orthostatic BPs to be checked. Elvira Drummond and PT Kae planned to work work with pt right away on this. Pt is an 80 year old male who admitted last night to care of hospitalist team. PCP: Linda Scott Payer: Medicare and [employer]. Pt was admitted through the ER after a near syncopal episode in setting of Parkinsons. Admission status: in review: per UR ELVIRA Woody. Will check in again as more is known to continue the assessment process. Advanced directive, confirm from FAMILY Start: 08/21/20 01:31 Freq: Q24H Status: Active Protocol: Document 08/21/20 01:31 RM (Rec: 08/21/20 02:42 RM [id number]) Advance Directive, confirm on record Time 02:42 Person contacted Copy received No CM Discharge Assessment Start: 08/21/20 12:53 Freq: Status: Active Protocol: Document 08/21/20 12:54 ITV (Rec: 08/21/20 12:55 ITV [id number]) Discharge Planning Assessment Advance Directives? Yes Advance Directives on File No History Provided By Medical Record Prior Living Arrangements House Household Members spouse Type of transportation used prior to Relies on Others admit Is patient alert and oriented? Yes DME Already Rented / Owned FWW / Walker,Cane Review Status In Process
--- NOTE | 2020-08-21 13:06 | PM.DS.1 ---
History of Present Illness History of Present Illness Date Patient Seen: 08/21/20 Time Patient Seen: 13:06 Chief complaint: Near Syncope Narrative: As per KONG Bartholomew: Mr. Tarik Marquez is an 80-year-old male with a past medical history significant for Parkinson's disease, hypertension, paroxysmal atrial fibrillation on warfarin anticoagulation and status post intracardiac permanent pacemaker implantation, heart failure and prostate cancer (s/p prostatectomy with insertion of an artificial sphincter) who presents to the ER following a near syncopal episode. The patient was ambulating with his walker back from the bathroom when he became weak and his observed him having difficulty ambulating. She has may need help to which he said yes she provided care for him to sit down on. Which time he was pale and diaphoretic per his 's report. Patient denies complaints of vertigo or dizziness and has had no chest pain and denies palpitations he had no headache, numbness or tingling. EMS was summoned and the patient was able to ambulate with assistance of medics. Patient reports no complaints of fevers or chills, headaches, nasal congestion or sore throat. He denies chest pain or palpitations. He reports no shortness of breath cough or wheezing. He denies abdominal pain, nausea or vomiting. He continues to have intermittent constipation improved with regular use MiraLax and stool softener. He denies worsening leg edema and his validates that is leg edema is at baseline. Upon arrival to the ER the patient has a temperature of 98.5?, heart rate of 61, blood pressure 180/77, respirations 17 saturating 97% on room air. A head CT is obtained which finds no acute intracranial processes. Chest x-ray is unremarkable with no reported acute cardiopulmonary changes. On laboratory analysis the patient has a white count of 10.2, hemoglobin of 10.4, hematocrit 37.0 and platelets of 183. His PT is 284 with an INR of 2.5 and a PTT of 41. He has a potassium of 3.4 and a BUN of 28 and creatinine of 1.3. His nonfasting glucose is 156. His liver functions are all within normal limits and he has a total CK of 41 and a troponin of 0.022. Do not lead EKG finds atrial fibrillation with slow ventricular response of 57 beats per minute with intermittent paced beats and PVCs, no ST or T-wave changes or evidence of infarct noted. The patient received a 1 L normal saline bolus in the ER and is admitted to the hospitalist service for near syncopal episode and Parkinson's. Discharge Providers Provider Date of admission: 08/20/20 23:41 Discharge Date: 08/21/20 Primary care physician: Linda Scott MD Consults: 08/21/20 00:20 Consult to Physical Therapy Evaluate & Treat Comment: Physician Instructions: Evaluate and Treat Discharge provider: Cristiano Rhodes DO Summary Hospital Course Discharge Diagnosis: 1. Near syncope, acute, active. 2. Paroxysmal atrial fibrillation on warfarin, chronic, present on admission, stable. 3. Heart failure, unknown type, present on admission, stable. 4. BPH with urinary retention, chronic, present on admission, stable. 5. Parkinson's disease, chronic, present on admission, stable. 6. GERD, chronic, present on admission, stable. 7. Hypokalemia, acute, present on admission, resolved Hospital Course: Tarik Marquez is an 79-year-old male with a past medical history significant for hypertension, atrial fibrillation on warfarin, Parkinson's disease, CHF unknown type, former tobacco dependence, and prostate cancer status post insertion of an artificial sphincter who presented to the ED with near syncopal episode. 1. Near syncope, acute, resolved. -patient describes feeling lightheaded dizzy without room spinning or visual changes. He describes fatigue and weakness in his arms, his describes pallor and diaphoresis. -patient denies complaints of fevers or chills chest pain or shortness of breath. He has had no chest pain or palpitations. He was returning from the bathroom and had a normal stool without hematochezia or melena. -patient now states he is baseline which is confirmed by the patient's . Orthostatics were checked and were negative. Story is reassuring for noncardiac etiology and patient has a pacemaker in place. 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 -patient was seen by physical therapy and cleared for discharge home. 2. Paroxysmal atrial fibrillation on warfarin, chronic, present on admission, stable. -patient anticoagulated with warfarin with an INR of 2.5. Continued warfarin dosing per home regimen 5 mg daily with warfarin 2.5 on Wednesdays and Saturdays. -patient had a intracardiac permanent pacemaker implantation in April 2020. -potassium level is 3.4 will replete potassium with 40 mEq KCL by mouth. -Continue metoprolol succinate 25 mg daily. 3. Heart failure, unknown type, present on admission, stable. -no acute exacerbation of CHF breath sounds clear but diminished bibasilar, no cough or shortness of breath. Patient denies change in bilateral leg edema, presently 2+. No overt symptoms of decompensated heart failure. -Continue home bumetanide 2 mg twice daily. 4. BPH with urinary retention, chronic, present on admission, stable. -Patient has a history of prostate cancer status post prostatectomy with lymph node clips and penile implant in place and artificial sphincter. 5. Parkinson's disease, chronic, present on admission, stable. -Continued home carbidopa/levodopa 1.5 tab 3 times daily. -Patient has had intermittent moderate to severe constipation improved with MiraLax 17 g daily and Colace 100 mg twice daily. -Ordered Dulcolax suppository as needed for constipation. -patient's orthostatics were negative. 6. GERD, chronic, present on admission, stable. -Continue home Protonix 40 mg daily. Exam Vital Signs (past 8 hours): - 08/21/20 05:55 08/21/20 07:50 08/21/20 10:21 Temperature 97.0 F L 97.4 F L Pulse Rate 56 L 56 L Pulse Rate [Orthostatic Lying] 60 Pulse Rate [Orthostatic Sitting] 57 L Pulse Rate [Orthostatic Standing] 63 Respiratory Rate 18 16 Blood Pressure 163/76 H 176/79 H Blood Pressure [Orthostatic Lying] 135/68 Blood Pressure [Orthostatic Sitting] 152/64 H Blood Pressure [Orthostatic Standing] 149/76 H Pulse Oximetry 100 100 Oxygen Delivery Method Room Air Oxygen Flow Rate 0 Narrative Exam Narrative: GENERAL APPEARANCE: well developed, well nourished, in no acute distress. HEENT: Normocephalic, PERRLA, conjunctiva clear, EOMs intact without nystagmus, no sinus tenderness to percussion, no rhinorrhea, mucous membranes are pink and moist. NECK/THYROID: neck supple, no JVD, no carotid bruit, no thyromegaly, trachea midline. LYMPH NODES: no cervical or supraclavicular lymphadenopathy. SKIN: [place], warm and dry, no visible lesions, rashes, ulcerations or petechiae. HEART: Irregularly irregular rhythm, S1-S2, no murmur, no rubs or gallops, brisk capillary refill, no edema LUNGS: Diminished breath sounds bilateral bases without coarseness crackles or wheezing, no cough present. CHEST: Symmetrical movement, no accessory muscle use. ABDOMEN: Soft, no distention, no abdominal tenderness, right side abdominal discomfort on palpation, no flank or suprapubic tenderness, active bowel tones. BACK: nontender to palpation, stooped posture EXTREMITIES: moves all extremities, strength is 5/5 and symmetrical, no deformities or joint effusions. NEUROLOGIC: AAO x4, no lateralizing symptoms, cranial nerves II-XII grossly intact, bradykinesia, sensation intact to light touch, hearing grossly normal to speech. PSYCH: Good judgment, cooperative, appropriate with stable behavior Objective Labs Result Diagrams: 08/21/20 05:52 08/21/20 05:52 Labs: Laboratory Results - last 24 hr 08/20/20 08/20/20 08/20/20 22:30 22:55 22:55 WBC 10.2 RBC 4.19 L Hgb 12.4 L Hct 37.0 L MCV 88.4 MCH 29.5 MCHC 33.4 RDW 15.0 H Plt Count 183 Neut % (Auto) 73.1 Lymph % (Auto) 14.0 L [place] % (Auto) 9.3 Eos % (Auto) 3.3 Baso % (Auto) 0.3 Neut # (Auto) 7400 H Lymph # (Auto) 1400 [place] # (Auto) 900 Eos # (Auto) 300 Baso # (Auto) 0 PT 28.4 H INR 2.5 H APTT 41 H D Sodium Potassium Chloride Carbon Dioxide BUN Creatinine Estimated GFR BUN/Creatinine Ratio Glucose Calcium Magnesium Total Bilirubin AST ALT Alkaline Phosphatase Total Creatine Kinase CK-MB (CK-2) CK-MB (CK-2) Rel Index Troponin I Total Protein Albumin Globulin Albumin/Globulin Ratio Urine Color Urine Appearance Urine pH Ur Specific [place] Urine Protein Urine Glucose (UA) Urine Ketones Urine Occult Blood Urine Nitrate Urine Bilirubin Urine Urobilinogen Ur Leukocyte Esterase Urine RBC Urine WBC Urine Bacteria Ur Culture Indicated? Micro UA Comment COVID-19 PCR Negative 08/20/20 08/21/20 08/21/20 22:55 02:43 05:52 WBC 7.7 RBC 3.89 L Hgb 11.5 L Hct 34.1 L MCV 87.6 MCH 29.6 MCHC 33.8 RDW 14.9 H Plt Count 169 Neut % (Auto) 57.8 Lymph % (Auto) 23.2 L [place] % (Auto) 11.7 Eos % (Auto) 6.8 H Baso % (Auto) 0.5 Neut # (Auto) 4400 Lymph # (Auto) 1800 [place] # (Auto) 900 Eos # (Auto) 500 H Baso # (Auto) 0 PT INR APTT Sodium 137 Potassium 3.4 Chloride 97 L Carbon Dioxide 37 H BUN 28 H Creatinine 1.30 H Estimated GFR 52.9 L BUN/Creatinine Ratio 21.5 Glucose 156 H Calcium 9.2 Magnesium Total Bilirubin 0.8 AST 25 ALT < 4 Alkaline Phosphatase 85 Total Creatine Kinase 41 L CK-MB (CK-2) TNP CK-MB (CK-2) Rel Index TNP Troponin I 0.022 Total Protein 7.4 Albumin 3.8 Globulin 3.6 Albumin/Globulin Ratio 1.1 Urine Color Yellow Urine Appearance Clear Urine pH 7.0 Ur Specific [place] 1.010 Urine Protein Negative Urine Glucose (UA) Negative Urine Ketones Negative Urine Occult Blood Negative Urine Nitrate Negative Urine Bilirubin Negative Urine Urobilinogen 0.2 Ur Leukocyte Esterase Negative Urine RBC None seen Urine WBC None seen Urine Bacteria None seen Ur Culture Indicated? Cult not indicated Micro UA Comment Microscopic normal COVID-19 PCR 08/21/20 08/21/20 05:52 05:52 WBC RBC Hgb Hct MCV MCH MCHC RDW Plt Count Neut % (Auto) Lymph % (Auto) [place] % (Auto) Eos % (Auto) Baso % (Auto) Neut # (Auto) Lymph # (Auto) [place] # (Auto) Eos # (Auto) Baso # (Auto) PT INR APTT Sodium 139 Potassium 3.4 Chloride 98 Carbon Dioxide 36 H BUN 28 H Creatinine 1.30 H Estimated GFR 52.9 L BUN/Creatinine Ratio 21.5 Glucose 93 Calcium 9.0 Magnesium 2.1 Total Bilirubin AST ALT Alkaline Phosphatase Total Creatine Kinase CK-MB (CK-2) CK-MB (CK-2) Rel Index Troponin I 0.018 Total Protein Albumin Globulin Albumin/Globulin Ratio Urine Color Urine Appearance Urine pH Ur Specific [place] Urine Protein Urine Glucose (UA) Urine Ketones Urine Occult Blood Urine Nitrate Urine Bilirubin Urine Urobilinogen Ur Leukocyte Esterase Urine RBC Urine WBC Urine Bacteria Ur Culture Indicated? Micro UA Comment COVID-19 PCR Discharge Plan Discharge Plan Patient Disposition: Home Discharge comment: You were admitted to the hospital with an episode of dizziness, likely vaso-vagal or micturational in nature. No issues noted with PPM, recommend increasing bumetanide to 4 mg BID for one day then resuming home dose. Continue home medications. Follow up with neurology as scheduled, may need some dosing adjustments. Discharge orders & Medications Prescriptions: Continued tolterodine 2 mg capsule,extended release 24hr 2 mg PO DAILY RF: 0 metoprolol succinate 50 mg tablet extended release 24 hr 25 mg PO DAILY RF: 0 carbidopa-levodopa 50-200 mg tablet extended release 1.5 tab PO TID RF: 0 potassium chloride 10 mEq tablet extended release 10 meq PO BID RF: 0 selegiline HCl 5 mg capsule 5 mg PO BID RF: 0 bumetanide 2 mg tablet 2 mg PO BID RF: 0 cholecalciferol (vitamin D3) [Vitamin D3] 1,000 unit Tablet 1,000 unit PO DAILY RF: 0 nitroglycerin 0.4 mg Tablet, Sublingual 0.4 mg SUBLINGUAL Q5-15M PRN (Reason: chest pain) RF: 0 famotidine [Pepcid] 20 mg Tablet 20 mg PO DAILY RF: 0 docusate sodium [Colace] 100 mg capsule 100 mg PO BID Qty: 60 RF: 0 warfarin 5 mg Tablet See Rx Instructions .ROUTE .COMPLEX RF: 0 Follow up/Referrals: Renita Singh PA-C [Non-Staff] - Visit Report/Discharge Packet Instructions: Heart-Healthy Diet, DI for Heart Failure, How to Prevent Falls, How to Keep Track of Your Weight When You Have Heart Failure, How to Monitor Your Blood Pressure at Home Visit Report Forms: Patient Portal/API, Stroke Signs & Symptoms Discharge Data Primary Care Provider: Linda Scott Attending Provider: Cristiano Go Admit Date/Time: 08/20/20 23:41 Discharges patient from system. Discharge Date/Time: 08/21/20 15:10
== END 2020-08-21 15:10 | disposition home or self-care (01) ==
LOC: ED 21:52 → AC 23:41
PROVIDERS: Admitting Provider Nurse Practitioner Adult Health; Emergency Provider Emergency Medicine; PCP Family Medicine; Referring Provider Emergency Medicine; Visit Provider Nurse Practitioner Adult Health
DX: R55 Syncope and collapse (principal); I48.0 Paroxysmal atrial fibrillation; Z95.0 Presence of cardiac pacemaker; Z79.01 Long term (current) use of anticoagulants; I50.9 Heart failure, unspecified; G20 Parkinson's disease; N40.1 Benign prostatic hyperplasia with lower urinary tract symptoms; R33.8 Other retention of urine; K21.9 Gastro-esophageal reflux disease without esophagitis; Z11.59 Encounter for screening for other viral diseases
CPT/HCPCS: 36415; 70450; 71045; 80048; 80053; 81001; 82550; 83735; 84484; 85025; 85610; 85730; 87635; 90471; 90662; 93005; 96372; 97162; 99284; G0378; A9270; J1650

== ENCOUNTER 2020-10-26 10:05 | Emergency (ER) | payer MEDICARE, OTHER, SELFPAY ==
[2020-08-21 00:29] VITALS: BMI 28.5
--- NOTE | 2020-10-26 10:10 | ED_ITS ---
HPI - General Adult General Chief complaint: Extremity Injury, Upper Stated complaint: Rt arm pain due to dresser falling on him Time Seen by Provider: 10/26/20 10:10 History of Present Illness HPI narrative: 80-year-old gentleman with a history of Parkinson's disease was feeling slightly unsteady is he was walking passed a dresser this morning reach out for the dresser to steady him and then the dresser fell over landing on his right arm. He is anticoagulated for paroxysmal atrial fibrillation. There is some minor skin tears along his arm he has tenderness in the upper arm. He comes in for further evaluation. Related Data Home Medications Medication Instructions Recorded Confirmed bumetanide 2 mg PO BID 07/24/18 08/20/20 carbidopa-levodopa 1.5 tab PO TID 07/24/18 08/20/20 cholecalciferol (vitamin D3) 1,000 unit PO DAILY 07/24/18 08/20/20 [Vitamin D3] metoprolol succinate 25 mg PO DAILY 07/24/18 08/20/20 potassium chloride 10 meq PO BID 07/24/18 08/20/20 selegiline HCl 5 mg PO BID 07/24/18 08/20/20 tolterodine 2 mg PO DAILY 07/24/18 08/20/20 famotidine [Pepcid] 20 mg PO DAILY 12/29/19 08/20/20 nitroglycerin 0.4 mg SUBLINGUAL Q5-15M PRN 12/29/19 08/20/20 warfarin See Rx Instructions .ROUTE .COMPLEX 08/20/20 08/20/20 Previous Rx's Medication Instructions Recorded docusate sodium [Colace] 100 mg PO BID #60 cap 12/31/19 Allergies Allergy/AdvReac Type Severity Reaction Status Date / Time penicillin G Allergy Swelling Verified 10/26/20 10:18 of Lip/Tongue/Throat hydrochlorothiazide AdvReac Verified 10/26/20 10:18 lisinopril AdvReac Cough Verified 10/26/20 10:18 simvastatin [From Zocor] AdvReac Weakness Verified 10/26/20 10:18 Review of Systems Review of Systems Narrative: Pertinent positive and negative findings as per HPI Remainder of review of systems is otherwise unremarkable for Constitutional: Fevers, chills, weakness ENT: No sore throat, neck pain, ear pain CV: Chest pain, palpitations, dyspnea on exertion Respiratory: Cough, wheeze, GI: Nausea, vomiting, diarrhea, : Dysuria, hematuria, flank pain Neuro: Syncope, dizziness, tingling Patient History Medical History (Updated 10/26/20 @ 11:06 by Caridad Christensen MD) Atrial fibrillation Congestive heart failure History of gastroesophageal reflux (GERD) History of prostate cancer History of warfarin therapy Hypertension Parkinsons Surgical History History of colonoscopy History of penile implant History of permanent cardiac pacemaker placement History of prostatectomy Social History household members: spouse Smoking Status: Former smoker alcohol intake: current Smoking Status: Former smoker alcohol intake frequency: a few times a month Substance Use Type: does not use Exam Narrative Exam Narrative: General: Alert appropriate in no acute distress Respiratory: Able to speak in full sentences, no obvious respiratory distress Skin: No obvious rashes, warm and dry Neurologic: Grossly intact no obvious asymmetries or abnormalities Psych, appropriate insight and affect, cooperative Extremity: Right humerus slightly tender midshaft to palpation without significant bruising. Does have a couple of skin tears over the arm with some minor bruising as would expect with dinner scan on Coumadin Initial Vital Signs Initial Vital Signs: Vital Signs Temperature 97.8 F 10/26/20 10:13 Pulse Rate 50 L 10/26/20 10:13 Respiratory Rate 14 10/26/20 10:13 Blood Pressure 189/80 H 10/26/20 10:13 Pulse Oximetry 100 10/26/20 10:13 Course Orders Ordered: ED Orders 10/26/20 10:13 XR humerus RT 2V Stat Vital Signs Vital signs: Vital Signs - 8 hr 10/26/20 10:13 Temperature 97.8 F Pulse Rate 50 L Respiratory Rate 14 Blood Pressure 189/80 H Pulse Oximetry 100 Medical Decision Making Medical Records Medical records reviewed: Yes I reviewed the patient's medical records. Imaging Data X-ray shoulder: Radiologist's Impression: FINDINGS: Bones: No fractures or dislocations. No suspicious bony lesions. Soft tissues: No suspicious soft tissue calcifications. IMPRESSION: No humerus fracture. Dictated by: Franki Arechiga M.D. on 10/26/2020 at 10:01 [facility] Narrative Medical decision making narrative: 80-year-old gentleman with some mild skin tears after a dresser landed on his right arm. Mild tenderness over the humerus with no subsequent fractures. Skin tears are dressed with DuoDerm. He is safe for home discharge Discharge Plan Departure Patient Disposition: Home Clinical Impression: Skin tear Contusion Qualifiers: Encounter type: initial encounter Contusion area: upper arm Laterality: right Qualified Code(s): S40.021A - Contusion of right upper arm, initial encounter Instructions: DI for Laceration Repair-Skin Closure Strips Activity Restrictions/Additional Instructions: Thank you for coming in today Your x-ray is very reassuring. There are no fractures to your arm. I would expect that your arm will be more sore over the next 1-2 days. The skin tears have been treated and hopefully will heal nicely within the next 1-2 weeks. If they seem to be getting infected or your developing new issues or pain, please feel free to return to the emergency department Prescriptions: No Action tolterodine 2 mg capsule,extended release 24hr 2 mg PO DAILY RF: 0 metoprolol succinate 50 mg tablet extended release 24 hr 25 mg PO DAILY RF: 0 carbidopa-levodopa 50-200 mg tablet extended release 1.5 tab PO TID RF: 0 potassium chloride 10 mEq tablet extended release 10 meq PO BID RF: 0 selegiline HCl 5 mg capsule 5 mg PO BID RF: 0 bumetanide 2 mg tablet 2 mg PO BID RF: 0 cholecalciferol (vitamin D3) [Vitamin D3] 1,000 unit Tablet 1,000 unit PO DAILY RF: 0 nitroglycerin 0.4 mg Tablet, Sublingual 0.4 mg SUBLINGUAL Q5-15M PRN (Reason: chest pain) RF: 0 famotidine [Pepcid] 20 mg Tablet 20 mg PO DAILY RF: 0 docusate sodium [Colace] 100 mg capsule 100 mg PO BID Qty: 60 RF: 0 warfarin 5 mg Tablet See Rx Instructions .ROUTE .COMPLEX RF: 0 Referrals: Linda Scott MD [Primary Care Provider] -
[2020-10-26 10:13] VITALS: BP 189/80; PULSE 50; RESP 14; TEMP 36.6; O2SAT 100; BMI 27.7
--- NOTE | 2020-10-26 10:13 | DI.RAD.S_ITS ---
PROCEDURE: XR HUMERUS RT 2V INDICATIONS: trauma TECHNIQUE: 3 views of the humerus were acquired. COMPARISON: None. FINDINGS: Bones: No fractures or dislocations. No suspicious bony lesions. Soft tissues: No suspicious soft tissue calcifications. IMPRESSION: No humerus fracture. Dictated by: Franki Arechiga M.D. on 10/26/2020 at 10:01 Approved by: Franki Arechiga M.D. on 10/26/2020 at 10:03
[2020-10-26 11:28] VITALS: BP 174/74; PULSE 53; RESP 16; O2SAT 99
== END 2020-10-26 11:29 | disposition home or self-care (01) ==
PROVIDERS: Emergency Provider Emergency Medicine; PCP Family Medicine
DX: S41.111A Laceration without foreign body of right upper arm, initial encounter (principal); S40.021A Contusion of right upper arm, initial encounter; W19.XXXA Unspecified fall, initial encounter; I48.0 Paroxysmal atrial fibrillation; Z79.01 Long term (current) use of anticoagulants; I10 Essential (primary) hypertension; G20 Parkinson's disease
CPT/HCPCS: 73060; 99283

== ENCOUNTER 2021-01-13 17:22 | Inpatient (IN) | payer MEDICARE, OTHER, SELFPAY ==
[2020-08-21 00:29] VITALS: BMI 28.5
[2021-01-13] VITALS (33 sets, daily range): BP systolic 100–198; BP diastolic 54–115; PULSE 50–125; RESP 9–28; TEMP 36.9; O2SAT 97–100; BMI 28.5
--- NOTE | 2021-01-13 18:05 | DI.RAD.S_ITS ---
PROCEDURE: XR CHEST 1V INDICATIONS: altered mental status TECHNIQUE: One view of the chest was acquired. COMPARISON: [facility], CR, XR CHEST 1V, 08/20/2020, 22:16. FINDINGS: Surgical changes and devices: Cardiac leadless pacer Lungs and pleura: Lungs are clear. No pleural effusions or pneumothorax. Mediastinum: Mediastinal contours appear normal. Heart size is normal. Bones and chest wall: No suspicious bony lesions. Overlying soft tissues appear unremarkable. IMPRESSION: No acute disease. Dictated by: Alfredo Keita M.D. on 01/13/2021 at 18:23 Approved by: Alfredo Keita M.D. on 01/13/2021 at 18:23
[2021-01-13 18:23] LABS: Add Manual Diff / Slide Review NO; Basophils Absolute Auto 100 /uL (0-100); Basophils Percent Auto 0.9 % (0-2); Eosinophils Absolute Auto 400 /uL (0-450); Eosinophils Percent Auto 3.6 % (2-4); Hematocrit 33.4 % (41-53); Hemoglobin 11.2 g/dL (13.5-17.5); Lymphocytes Absolute Auto 1600 /uL (1100-4500); Lymphocytes Percent Auto 16.1 % (25-40); Mean Corpuscular HGB Conc 33.6 % (30-36); Mean Corpuscular Hemoglobin 29.5 PG (26-34); Monocytes Absolute Auto 900 /uL (0-900); Monocytes Percent Auto 9.2 % (3-14); Neutrophils Absolute Auto 7000 /uL (1500-7000); Neutrophils Percent Auto 70.2 % (50-75); Platelet Count 205 X10^3/uL (150-400); Red Blood Cell Count 3.79 X10^6/uL (4.5-5.9); Red Cell Distribution Width 14.6 % (11.6-14.8); White Blood Cell Count 9.9 X10^3/uL (4.5-11.0)
[2021-01-13 18:32] LABS: Albumin 4.1 g/dL (3.5-5.0); Albumin Globulin Ratio 1.2 (1.0-2.8); Alkaline Phosphatase 85 U/L (38-126); Aspartate Aminotransferase 23 IU/L (17-59); BUN Creatinine Ratio 16.8 (6-22); Bilirubin Total 0.7 mg/dL (0.2-1.3); Blood Urea Nitrogen 46 mg/dL (9-20); Calcium 9.6 mg/dL (8.4-10.2); Carbon Dioxide 32 mmol/L (22-32); Chloride 102 mmol/L (98-107); Creatine Kinase 85 U/L (55-170); Estimated Glomerular Filt Rate 22.4 mL/min (>60); Globulin 3.5 g/dL (1.7-4.1); Glucose 98 mg/dL (80-110); HEMOLYSIS < 15 (0-50); Potassium 3.7 mmol/L (3.4-5.1); Sodium 139 mmol/L (137-145); Total Protein 7.6 g/dL (6.3-8.2)
[2021-01-13 18:44] LABS: Troponin I 0.025 ng/mL (0.01-0.034)
[2021-01-13 18:49] LABS: Alanine Aminotransferase < 4 IU/L (<50)
[2021-01-13 20:59] LABS: NT-proBNP (BNP-Adult 18+) 2450 pg/mL (<450)
[2021-01-13 21:01] LABS: Bacteria Urine None Seen
[2021-01-13 21:05] LABS: Appearance Urine UA CLEAR; Bilirubin Urine UA NEGATIVE (NEGATIVE); Color Urine UA YELLOW; Glucose Urine UA NEGATIVE (Negative); Ketones Urine UA NEGATIVE (NEGATIVE); Leukocyte Esterase Urine UA NEGATIVE (NEGATIVE); Nitrite Urine UA NEGATIVE (Negative); Occult Blood Urine UA NEGATIVE (Negative); Protein Urine UA NEGATIVE (Negative); Urobilinogen Urine UA 0.2 E.U./dL (0.2)
[2021-01-13 21:15] LABS: Culture Indicated Urine Cult Not Indicated; RBC Urine 0-1/HPF (0-5/HPF); WBC Urine 0-1/HPF (0-5/HPF)
--- NOTE | 2021-01-13 22:34 | DI.CT.S_ITS ---
PROCEDURE: CT KIDNEY URETER BLADDER (KUB) INDICATIONS: Acute renal failure, history of artificial urinary sphincter, urinary obstruction TECHNIQUE: Noncontrast 5 mm thick sections acquired from the diaphragms to the symphysis. 5 mm thick coronal and sagittal reformats were then performed. For radiation dose reduction, the following was used: automated exposure control, adjustment of mA and/or kV according to patient size. COMPARISON: None. FINDINGS: Image quality: Excellent. Lung bases: Lung bases are clear. Heart size is normal. Urinary system: Both kidneys are normal in size. No kidney stones. Prominent bilateral hydronephrosis is symmetric, associated with urinary bladder distension. Both ureters appear non-dilated throughout their expected courses. Bladder wall thickness is normal; no calcified bladder stones. Other solid organs: Liver is relatively small in size and somewhat nodular in margination with a pattern suggestive of cirrhosis, without ascites or adjacent large varices.. Gallbladder appears normal . Pancreas is normal in contours. Spleen is normal in size. No adrenal nodules. Peritoneum and bowel: Unenhanced bowel loops demonstrate normal wall thickness and caliber. No free fluid or air. Nodes and vessels: No retroperitoneal or mesenteric adenopathy by size criteria. Aorta and inferior vena cava are normal in caliber. Abdominal wall: No ventral hernias. Pelvis: No free pelvic fluid. No inguinal hernias or adenopathy. The urinary bladder is prominently dilated measuring up to 12.1 cm AP, 16.8 cm transverse and 26.2 cm craniocaudad. There is a reported urinary bladder sphincter device in place, showing no adjacent inflammation. Bones: No suspicious bony lesions. No vertebral body compression fractures. IMPRESSION: Prominent urinary bladder distension, as discussed. Secondary hydronephrosis that is moderately severe, bilaterally. Urinary sphincter prosthesis devices present in place, without evidence of adjacent inflammation. The study is performed without oral or intravenous contrast, limiting quality of resolution. There appears to be likely cirrhosis, given the relatively small liver size and mild nodular margination along the liver margins. Dictated by: Donavan Bridges M.D. on 01/14/2021 at 9:49 Approved by: Donavan Bridges M.D. on 01/14/2021 at 9:54
--- NOTE | 2021-01-13 22:35 | ED_ITS ---
HPI - Weakness General Chief complaint: Weakness Stated complaint: Weakness Time Seen by Provider: 01/13/21 18:10 Source: patient and family Limitations: no limitations and other (dementia) History of Present Illness HPI Narrative: 80-year-old male comes to the emergency department complaint of weakness patient states he had a fall on the Dec 31 where he fell out of bed. On the 07 of January he was using his walker she was assisting him with his gait belt and had a fall. This morning about 4:30 a.m. he slid out of bed requiring EMS to come for lift assist. She does not believe he had any other injuries but he has continued to be weak and unable to ambulate. Patient has baseline dementia. His states his mental status has not been significantly worse in the last several days. He also has Parkinson's which she states has been slowly progressively worsening and he starting to lose bowel control. He is normally on a CPAP. She states he has chronic constipation and is on stool softeners. 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 There is a button that the patient presses to release his urine. It has been progressively less effective over time and he will have urinary i ncontinence. This was placed by urologist at [facility] who has since retired and and they are in the process of establishing with Dr. Dawson as there urologist. They have told the patient and family that they may not be able to replace it. Patient has not had fevers, no chills, no chest pain or shortness of breath. No nausea or vomiting. He has been eating and drinking regularly. He has not had any significant changes to bowel movements. notes his abdomen is more distended. He has had a significant decrease in his urine output. Related Data Home Medications Medication Instructions Recorded Confirmed bumetanide 2 mg PO BID 07/24/18 01/14/21 carbidopa-levodopa 1.5 tab PO TID 07/24/18 01/14/21 cholecalciferol (vitamin D3) 1,000 unit PO DAILY 07/24/18 01/14/21 [Vitamin D3] metoprolol succinate 25 mg PO DAILY 07/24/18 01/14/21 potassium chloride 10 meq PO BID 07/24/18 01/14/21 tolterodine 2 mg PO DAILY 07/24/18 01/14/21 famotidine [Pepcid] 20 mg PO BID 12/29/19 01/14/21 nitroglycerin 0.4 mg SUBLINGUAL Q5-15M PRN 12/29/19 01/14/21 warfarin See Rx Instructions .ROUTE .COMPLEX 08/20/20 01/14/21 Previous Rx's Medication Instructions Recorded docusate sodium [Colace] 100 mg PO BID #60 cap 12/31/19 Allergies Allergy/AdvReac Type Severity Reaction Status Date / Time penicillin G Allergy Swelling Verified 10/26/20 10:18 of Lip/Tongue/Throat hydrochlorothiazide AdvReac Verified 10/26/20 10:18 lisinopril AdvReac Cough Verified 10/26/20 10:18 simvastatin [From Zocor] AdvReac Weakness Verified 10/26/20 10:18 Review of Systems Review of Systems ROS Unobtainable: All systems reviewed & are unremarkable except as noted in HPI and below (majority obtained from ) Patient History Medical History Atrial fibrillation Congestive heart failure History of gastroesophageal reflux (GERD) History of prostate cancer History of warfarin therapy Hypertension Parkinsons Surgical History History of colonoscopy History of penile implant History of permanent cardiac pacemaker placement History of prostatectomy Social History household members: spouse Smoking Status: Former smoker alcohol intake: current Smoking Status: Former smoker alcohol intake frequency: a few times a month Substance Use Type: does not use Exam Narrative Exam Narrative: GEN: well nourished, well appearing elderly male, alert, patient appears to be in mild distress. Answers some questions but defers majority to . HEENT: Atraumatic, pupils are equal round reactive to light, extraocular movements are intact, nares are clear. HEART: Regular rate and rhythm without murmur, clicks, rubs. Bilateral lower extremity edema. LUNGS:Lungs clear to auscultation, no wheezes, rales, crackles, chest moves symmetrically ABD:bowel sounds normal, soft upper abdomen, lower abdomen feels full, non- tender, no guarding, rebound, rigidity, no masses noted, no hepatosplenomegaly :No CVA tenderness MSCL: Non-tender. NEURO:CN 2-12 intact, sensation normal SKIN: Rash, erythema or skin changes noted. Initial Vital Signs Initial Vital Signs: Vital Signs Temperature 98.5 F 01/13/21 17:28 Pulse Rate 53 L 01/13/21 17:28 Respiratory Rate 16 01/13/21 17:28 Blood Pressure 197/84 H 01/13/21 17:28 Pulse Oximetry 99 01/13/21 17:28 Course Orders Ordered: ED Orders 01/13/21 20:50 Urinalysis and Microscopic Stat Urine Drug Screen, Rapid Stat 01/13/21 22:34 CT kidney ureter bladder (KUB) Stat 01/13/21 22:35 COVID19 Stat 01/13/21 22:36 CT head/brain wo con Stat Acetaminophen (Acetaminophen 325 Mg Tablet) 650 mg PO Q6HR PRN PRN Reason: Fever/Mild Pain (1-3) Hydrocodone Bitart/Acetaminophen (Hydrocodone/Acet 5/325 Tablet) 1 tab PO Q4HR PRN PRN Reason: Pain, Moderate (4-6) Docusate Sodium (Docusate 100 Mg Capsule) 100 mg PO BID TC Naloxone HCl (Naloxone 0.4 Mg/Ml Vial) 0.2 mg IV Q2MIN PRN PRN Reason: Opiate Reversal Ondansetron HCl (Ondansetron 4 Mg Odt) 4 mg PO Q8HR PRN PRN Reason: Nausea And Vomiting Consultations Consultation #1: Spoke with MARGARET Beltran. Reviewed urology recommendations, patient's current clinical situation. She is comfortable with this plan. She does ask that we try to again clarify patient's DNR status although both him and his initially were not helpful and I was unable to clarify further here in the department. Time: 01:07 Consultation #2: Dr. Dawson is happy to follow the patient this morning. He request do not place a Martinez catheter. This cannot be done until his artificial sphincter deactivated. He recommends to continue pumping the bladder sphincter to drain urine regularly. Bladder scans Q 2 hours and if patient has greater than 500 cc of urine retention to up the catheter. Time: 00:15 Vital Signs Vital signs: Vital Signs - 8 hr 01/13/21 20:16 01/13/21 20:30 01/13/21 20:31 Pulse Rate 55 L 53 L 52 L Respiratory Rate 18 11 L 12 Blood Pressure 181/115 H 157/71 H Pulse Oximetry 01/13/21 20:46 01/13/21 21:00 01/13/21 21:16 Pulse Rate 114 H 53 L 53 L Respiratory Rate 28 H 14 11 L Blood Pressure 161/87 H 164/74 H 173/74 H Pulse Oximetry 97 99 99 01/13/21 21:30 01/13/21 21:31 01/13/21 22:00 Pulse Rate 53 L 58 L 51 L Respiratory Rate 12 11 L 15 Blood Pressure 100/55 L Pulse Oximetry 99 99 98 01/13/21 22:01 01/13/21 22:15 01/13/21 22:30 Pulse Rate 54 L 51 L 87 Respiratory Rate 15 13 19 Blood Pressure 121/60 108/54 L Pulse Oximetry 99 98 99 01/13/21 22:31 01/13/21 22:45 01/13/21 23:00 Pulse Rate 125 H 54 L 60 Respiratory Rate 19 16 19 Blood Pressure 150/70 H 149/70 H Pulse Oximetry 99 99 97 01/13/21 23:01 01/13/21 23:21 01/13/21 23:30 Pulse Rate 55 L 70 59 L Respiratory Rate 11 L 22 14 Blood Pressure 198/82 H 180/76 H Pulse Oximetry 97 98 97 01/13/21 23:31 01/13/21 23:45 01/14/21 00:00 Pulse Rate 55 L 56 L 61 Respiratory Rate 15 17 10 L Blood Pressure 156/68 H 163/72 H 154/65 H Pulse Oximetry 97 98 98 01/14/21 00:16 01/14/21 00:30 01/14/21 00:32 Pulse Rate 52 L 63 83 Respiratory Rate 11 L 15 23 Blood Pressure 162/70 H 200/84 H Pulse Oximetry 93 95 95 01/14/21 00:46 01/14/21 01:00 Pulse Rate 72 64 Respiratory Rate 20 16 Blood Pressure 179/76 H 180/77 H Pulse Oximetry MDM - Weakness Lab Data Attestation: I reviewed the patient's lab results. Result diagrams: 01/13/21 18:15 01/13/21 18:15 Labs: Lab Results 01/13/21 01/13/21 01/13/21 Range/Units 18:15 18:15 18:15 WBC 9.9 (4.5-11.0) X10^3/uL RBC 3.79 L (4.5-5.9) X10^6/uL Hgb 11.2 L (13.5-17.5) g/dL Hct 33.4 L (41-53) % MCV 88.0 (80-100) fL MCH 29.5 (26-34) PG MCHC 33.6 (30-36) % RDW 14.6 (11.6-14.8) % Plt Count 205 (150-400) X10^3/uL Neut % (Auto) 70.2 (50-75) % Lymph % (Auto) 16.1 L (25-40) % [place] % (Auto) 9.2 (3-14) % Eos % (Auto) 3.6 (2-4) % Baso % (Auto) 0.9 (0-2) % Neut # (Auto) 7000 (3248-0230) /uL Lymph # (Auto) 1600 (0098-5110) /uL [place] # (Auto) 900 (0-900) /uL Eos # (Auto) 400 (0-450) /uL Baso # (Auto) 100 (0-100) /uL Sodium 139 (137-145) mmol/L Potassium 3.7 (3.4-5.1) mmol/L Chloride 102 (98-107) mmol/L Carbon Dioxide 32 (22-32) mmol/L BUN 46 H (9-20) mg/dL Creatinine 2.73 H (0.66-1.25) mg/dL Estimated GFR 22.4 L (>60) mL/min BUN/Creatinine Ratio 16.8 (6-22) Glucose 98 (80-110) mg/dL Calcium 9.6 (8.4-10.2) mg/dL Total Bilirubin 0.7 (0.2-1.3) mg/dL AST 23 (17-59) IU/L ALT < 4 (<50) IU/L Alkaline Phosphatase 85 (38-126) U/L Total Creatine Kinase 85 (55-170) U/L CK-MB (CK-2) TNP CK-MB (CK-2) Rel Index TNP Troponin I 0.025 (0.01-0.034) ng/mL NT-Pro-B Natriuret Pep (<450) pg/mL Total Protein 7.6 (6.3-8.2) g/dL Albumin 4.1 (3.5-5.0) g/dL Globulin 3.5 (1.7-4.1) g/dL Albumin/Globulin Ratio 1.2 (1.0-2.8) Urine Color Urine Appearance Urine pH (4.5-8.0) Ur Specific [place] (1.000-1.035) Urine Protein (Negative) Urine Glucose (UA) (Negative) g/dL Urine Ketones (NEGATIVE) Urine Occult Blood (Negative) Urine Nitrate (Negative) Urine Bilirubin (NEGATIVE) Urine Urobilinogen (0.2) E.U./dL Ur Leukocyte Esterase (NEGATIVE) Urine RBC (0-5/HPF) Urine WBC (0-5/HPF) Urine Bacteria (None) Ur Culture Indicated? U Opiates 300ng/mL cut (Negative) Ur Oxycodone Screen (Negative) Urine Methadone Screen (Negative) Ur Barbiturates Screen (Negative) U Tricyclic Antidepress (Negative) Ur Phencyclidine Scrn (Negative) Ur Amphetamines Screen (Negative) U Methamphetamines Scrn (Negative) Ur MDMA Scrn (Ecstasy) (Negative) U Benzodiazepines Scrn (Negative) Urine Cocaine Screen (Negative) U Marijuana (THC) Screen (Negative) SARS-CoV-2 (PCR) (Negative) 01/13/21 01/13/21 01/13/21 Range/Units 18:15 20:50 20:50 WBC (4.5-11.0) X10^3/uL RBC (4.5-5.9) X10^6/uL Hgb (13.5-17.5) g/dL Hct (41-53) % MCV (80-100) fL MCH (26-34) PG MCHC (30-36) % RDW (11.6-14.8) % Plt Count (150-400) X10^3/uL Neut % (Auto) (50-75) % Lymph % (Auto) (25-40) % [place] % (Auto) (3-14) % Eos % (Auto) (2-4) % Baso % (Auto) (0-2) % Neut # (Auto) (4721-5434) /uL Lymph # (Auto) (9210-8707) /uL [place] # (Auto) (0-900) /uL Eos # (Auto) (0-450) /uL Baso # (Auto) (0-100) /uL Sodium (137-145) mmol/L Potassium (3.4-5.1) mmol/L Chloride (98-107) mmol/L Carbon Dioxide (22-32) mmol/L BUN (9-20) mg/dL Creatinine (0.66-1.25) mg/dL Estimated GFR (>60) mL/min BUN/Creatinine Ratio (6-22) Glucose (80-110) mg/dL Calcium (8.4-10.2) mg/dL Total Bilirubin (0.2-1.3) mg/dL AST (17-59) IU/L ALT (<50) IU/L Alkaline Phosphatase (38-126) U/L Total Creatine Kinase (55-170) U/L CK-MB (CK-2) CK-MB (CK-2) Rel Index Troponin I (0.01-0.034) ng/mL NT-Pro-B Natriuret Pep 2450 H (<450) pg/mL Total Protein (6.3-8.2) g/dL Albumin (3.5-5.0) g/dL Globulin (1.7-4.1) g/dL Albumin/Globulin Ratio (1.0-2.8) Urine Color Yellow Urine Appearance Clear Urine pH 7.0 (4.5-8.0) Ur Specific [place] 1.010 (1.000-1.035) Urine Protein Negative (Negative) Urine Glucose (UA) Negative (Negative) g/dL Urine Ketones Negative (NEGATIVE) Urine Occult Blood Negative (Negative) Urine Nitrate Negative (Negative) Urine Bilirubin Negative (NEGATIVE) Urine Urobilinogen 0.2 (0.2) E.U./dL Ur Leukocyte Esterase Negative (NEGATIVE) Urine RBC 0-1/hpf (0-5/HPF) Urine WBC 0-1/hpf (0-5/HPF) Urine Bacteria None seen (None) Ur Culture Indicated? Cult not indicated U Opiates 300ng/mL cut Negative (Negative) Ur Oxycodone Screen Negative (Negative) Urine Methadone Screen Negative (Negative) Ur Barbiturates Screen Negative (Negative) U Tricyclic Antidepress Negative (Negative) Ur Phencyclidine Scrn Negative (Negative) Ur Amphetamines Screen Negative (Negative) U Methamphetamines Scrn Negative (Negative) Ur MDMA Scrn (Ecstasy) Negative (Negative) U Benzodiazepines Scrn Negative (Negative) Urine Cocaine Screen Negative (Negative) U Marijuana (THC) Screen Negative (Negative) SARS-CoV-2 (PCR) (Negative) 01/13/21 Range/Units 22:35 WBC (4.5-11.0) X10^3/uL RBC (4.5-5.9) X10^6/uL Hgb (13.5-17.5) g/dL Hct (41-53) % MCV (80-100) fL MCH (26-34) PG MCHC (30-36) % RDW (11.6-14.8) % Plt Count (150-400) X10^3/uL Neut % (Auto) (50-75) % Lymph % (Auto) (25-40) % [place] % (Auto) (3-14) % Eos % (Auto) (2-4) % Baso % (Auto) (0-2) % Neut # (Auto) (1824-1972) /uL Lymph # (Auto) (7856-5919) /uL [place] # (Auto) (0-900) /uL Eos # (Auto) (0-450) /uL Baso # (Auto) (0-100) /uL Sodium (137-145) mmol/L Potassium (3.4-5.1) mmol/L Chloride (98-107) mmol/L Carbon Dioxide (22-32) mmol/L BUN (9-20) mg/dL Creatinine (0.66-1.25) mg/dL Estimated GFR (>60) mL/min BUN/Creatinine Ratio (6-22) Glucose (80-110) mg/dL Calcium (8.4-10.2) mg/dL Total Bilirubin (0.2-1.3) mg/dL AST (17-59) IU/L ALT (<50) IU/L Alkaline Phosphatase (38-126) U/L Total Creatine Kinase (55-170) U/L CK-MB (CK-2) CK-MB (CK-2) Rel Index Troponin I (0.01-0.034) ng/mL NT-Pro-B Natriuret Pep (<450) pg/mL Total Protein (6.3-8.2) g/dL Albumin (3.5-5.0) g/dL Globulin (1.7-4.1) g/dL Albumin/Globulin Ratio (1.0-2.8) Urine Color Urine Appearance Urine pH (4.5-8.0) Ur Specific [place] (1.000-1.035) Urine Protein (Negative) Urine Glucose (UA) (Negative) g/dL Urine Ketones (NEGATIVE) Urine Occult Blood (Negative) Urine Nitrate (Negative) Urine Bilirubin (NEGATIVE) Urine Urobilinogen (0.2) E.U./dL Ur Leukocyte Esterase (NEGATIVE) Urine RBC (0-5/HPF) Urine WBC (0-5/HPF) Urine Bacteria (None) Ur Culture Indicated? U Opiates 300ng/mL cut (Negative) Ur Oxycodone Screen (Negative) Urine Methadone Screen (Negative) Ur Barbiturates Screen (Negative) U Tricyclic Antidepress (Negative) Ur Phencyclidine Scrn (Negative) Ur Amphetamines Screen (Negative) U Methamphetamines Scrn (Negative) Ur MDMA Scrn (Ecstasy) (Negative) U Benzodiazepines Scrn (Negative) Urine Cocaine Screen (Negative) U Marijuana (THC) Screen (Negative) SARS-CoV-2 (PCR) Negative (Negative) Imaging Data CT scan - head: Radiologist Impression: Acute disease in the brain. Stable mild ventricular prominence. Paranasal sinus disease noted. CT scan - abdomen/pelvis: Radiologist Impression: Markedly distended urinary bladder estimate to measure 26 cm on sagittal image 54. Associated severe bilateral hydroureteronephrosis without evidence of an obstructing stone. Sub cm stone in the right kidney. Mild nonspecific perinephric stranding noted bilaterally. Liver has mildly nodular contour. No evidence of abdominal aortic aneurysm. Surgical clips noted in the pelvis. Reportedly the patient has a history of artificial urinary sphincter placement. No evidence of bowel obstruction or free air. No pericolonic inflammation. ECG Data Attestation: I personally reviewed and interpreted this ECG as follows: Prior ECG tracings: available for review Interpretation: AFib with slow ventricular response rate of 57, QRS of 90 QTC of 436. Nonspecific change. Patient has prior EKG from 08/20/2020 which has similar AFib with slow response as well as segment changes. MDM Narrative Medical decision making narrative: This is an 80-year-old male who is brought by his for increasing weakness and multiple falls. Patient does not have any localized neurologic deficits appreciated. He does have dementia and his gives the majority of history. He also has Parkinson's that has been slowly progressing. Patient has a stable anemia, INR is elevated consistent with his warfarin use. This is for his atrial fibrillation. Patient has had a change in his renal function with a creatinine 2.73 prior in August of 2020 was 1.3 some mild elevation in his BUN with no other electrolyte abnormalities. His urine does not show any signs of infection, patient does have an artificial urinary sphincter which has been progressively less effective, his CT today shows a markedly distended bladder and bilateral hydro. Suspect that he has had chronic urinary retention which is causing his renal failure. Patient's EKG does not show acute changes, his troponin is negative and BNP is elevated but clinically patient has swelling in his lower extremities but no acute distress from a CHF picture. His BNP could be elevated also in the setting of his renal dysfunction. With his difficulties with urination Lasix was held. Head CT was also negative in the setting of multiple falls over the past month with anticoagulation. Home case was discussed with urology and we were able to drain 400cc from bladder with artificial sphincter but does require multiple ?pumps.? Urology recommends that patient continue to have his bladder scan every 2 hours if greater than 500 cc present to ?pump his catheter until there was drainage. Urology will see the patient this morning to deactivate his artificial sphincter patient is not to have a Martinez catheter placed until this is been performed by Urology. Discussed with MARGARET Beltran. Reviewed urology recommendations. Patient is stable in no acute distress and seems appropriate for current plan. I did attempt to clarify the patient's code status with his and she states that it is written down at home but she has 1 aware of the exact goals of care. When asked directly to the patient he states he does not remember. Discharge Plan Departure Patient Disposition: Admitted as Observation Clinical Impression: Acute kidney injury, History of urinary retention, Malfunction of artificial urethral sphincter Admit Date/Time: 01/14/21 01:09 Admit Provider: Mirta Beltran
--- NOTE | 2021-01-13 22:36 | DI.CT.S_ITS ---
PROCEDURE: CT HEAD/BRAIN WO CON INDICATIONS: multiple falls, on warfarin TECHNIQUE: Noncontrast 4.5 mm thick angled axial sections acquired from the foramen magnum to the vertex, with coronal and sagittal reformats. For radiation dose reduction, the following was used: automated exposure control, adjustment of mA and/or kV according to patient size. COMPARISON: [facility], CT, CT HEAD/BRAIN WO CON, 08/20/2020, 22:27. [facility], CT, CT HEAD/BRAIN WO CON, 02/28/2019, 23:24. FINDINGS: Image quality: Excellent. CSF spaces: Basal cisterns are patent. No extra-axial fluid collections. The ventricles are symmetric in size and shape. Brain: No intracranial bleeds or masses. There is cerebral volume loss for age, with resultant ventricular and sulcal prominence. There are periventricular and deep white matter chronic small vessel ischemic changes. There is intracranial internal carotid artery atherosclerosis. Skull and face: Calvarium and visualized facial bones appear intact, without suspicious lesions. Sinuses: Visualized sinuses and mastoids are clear. IMPRESSION: Moderate microvascular atherosclerotic change in the deep white matter of each hemisphere. No skull fracture or intracranial hemorrhage is found. Minimal ethmoid air cell mucosal thickening. Note: These findings are concordant with the preliminary interpretation. Dictated by: Donavan Bridges M.D. on 01/14/2021 at 8:05 Approved by: Donavan Bridges M.D. on 01/14/2021 at 8:06
[2021-01-13 22:56] LABS: COVID19 -Nasal RAPID Negative (Negative)
[2021-01-14] VITALS (19 sets, daily range): BP systolic 143–200; BP diastolic 61–102; PULSE 50–83; RESP 10–23; TEMP 36.2–37.6; O2SAT 93–100; BMI 29.2
[2021-01-14 00:06] LABS: UR Morphine/Opiate cutoff 300 Negative (Negative); Ur Creatinine 20 (Normal); Ur Specific Gravity 1.025 (Normal); Urine Amphetamines Negative (Negative); Urine Barbiturates Negative (Negative); Urine Benzodiazepines Negative (Negative); Urine Cocaine Negative (Negative); Urine MDMA Negative (Negative); Urine Methadone Negative (Negative); Urine Methamphetamines Negative (Negative); Urine Oxycodone Negative (Negative); Urine Phencyclidine Negative (Negative); Urine Tetrahydrocannabinol Negative (Negative); Urine Tricyclic Antidepressant Negative (Negative); Urine pH 5 (Normal)
--- NOTE | 2021-01-14 01:45 | PM.HP.1 ---
History of Present Illness History of Present Illness Date Patient Seen: 01/14/21 Time Patient Seen: 01:45 Chief complaint: Weakness Narrative: 80-year-old male comes to the emergency department complaint of weakness patient states he had a fall on the refill out of bed. On the he was using his walker she was assisting him with his gait belt and had a fall. This morning about 4:30 a.m. he slid out of bed. She does not believe he had any other injuries but he has continued to be weak and unable to ambulate. Patient has baseline dementia. His states he has not been significantly worse in the last several days. He also has Parkinson's which she states has been progressively worsening and he starting to lose bowel control. He is normally on a CPAP. She states he has chronic constipation and is on stool softeners. 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 There is a button that the patient presses to release his urine. It has been progressively less effective over time and he will have urinary incontinence. This was placed by urologist at [facility]. They have told the patient and family that they may not be able to replace it. Patient has not had fevers, no chills, no chest pain or shortness of breath. No nausea or vomiting. He has been eating and drinking regularly. He has not had any significant changes to bowel movements. He has had a significant decrease in his urine output. Patient's admit vitals temp 98.5?, BP 163/72, HR 56, R 17, 98% on room air. Labs HGB 11.2, HCT 33.4, BUN 46, creatinine 2.73, EGFR 22.4, proBNP 2450 urinalysis negative. ECG: AFib with slow ventricular response rate of 57, QRS of 90 QTC of 436. Nonspecific change. Patient has prior EKG from 08/20/2020 which has similar AFib with slow response as well as segment changes. Head CT:Acute disease in the brain. Stable mild ventricular prominence. Paranasal sinus disease noted. CT scan abdomen/pelvis: Markedly distended urinary bladder estimate to measure 26 cm on sagittal image 54. Associated severe bilateral hydroureteronephrosis without evidence of an obstructing stone. Sub cm stone in the right kidney. Mild nonspecific perinephric stranding noted bilaterally. Liver has mildly nodular contour. No evidence of abdominal aortic aneurysm. Surgical clips noted in the pelvis. Reportedly the patient has a history of artificial urinary sphincter placement. No evidence of bowel obstruction or free air. No pericolonic inflammation. Dr. Dawson is happy to follow the patient in the morning. He request do not place a Martinez catheter. This cannot be done until his artificial sphincter deactivated. He recommends to continue pumping the bladder sphincter to drain urine regularly. Bladder scans Q 2 hours and if patient has greater than 500 cc of urine retention to up the catheter. Patient History Medical History Atrial fibrillation Congestive heart failure History of gastroesophageal reflux (GERD) History of prostate cancer History of warfarin therapy Hypertension Parkinsons Surgical History History of colonoscopy History of penile implant History of permanent cardiac pacemaker placement History of prostatectomy Family & Social History Social History: household members spouse Safety & Behavioral: Feels Safe in Current Yes Environment Been Physically Hurt or No Threatened By a Person Tobacco & Substance use: Smoking Status Former smoker alcohol intake current alcohol intake frequency a few times a month Substance Use Type does not use Meds Home Medications and Allergies Home Medications Medication Instructions Recorded Confirmed Type bumetanide 2 mg PO BID 07/24/18 01/14/21 History carbidopa-levodopa 1.5 tab PO TID 07/24/18 01/14/21 History cholecalciferol (vitamin D3) 1,000 unit PO DAILY 07/24/18 01/14/21 History [Vitamin D3] metoprolol succinate 25 mg PO DAILY 07/24/18 01/14/21 History potassium chloride 10 meq PO BID 07/24/18 01/14/21 History tolterodine 2 mg PO DAILY 07/24/18 01/14/21 History famotidine [Pepcid] 20 mg PO BID 12/29/19 01/14/21 History nitroglycerin 0.4 mg SUBLINGUAL Q5-15M PRN 12/29/19 01/14/21 History docusate sodium [Colace] 100 mg PO BID #60 cap 12/31/19 01/14/21 Rx warfarin See Rx Instructions .ROUTE .COMPLEX 08/20/20 01/14/21 History Allergies Allergy/AdvReac Type Severity Reaction Status Date / Time penicillin G Allergy Swelling Verified 10/26/20 10:18 of Lip/Tongue/Throat hydrochlorothiazide AdvReac Verified 10/26/20 10:18 lisinopril AdvReac Cough Verified 10/26/20 10:18 simvastatin [From Zocor] AdvReac Weakness Verified 10/26/20 10:18 Review of Systems Review of Systems ROS: Yes unobtainable due to mental condition Genitourinary Genitourinary: Reports difficulty urinating and Reports other (Urinary retention that patient cannot sense.) Comments: Patient stated that his only discomfort was in the compression of the sphincter to attempt to milk it for urinary output repeatedly by the nursing staff. Exam Vital Signs (past 8 hours): - 01/13/21 18:00 01/13/21 18:30 01/13/21 19:00 Pulse Rate 58 L 50 L 51 L Respiratory Rate 17 12 18 Blood Pressure Pulse Oximetry 99 99 99 01/13/21 19:01 01/13/21 19:15 01/13/21 19:30 Pulse Rate 51 L 52 L 65 Respiratory Rate 17 14 17 Blood Pressure 159/71 H 162/67 H Pulse Oximetry 99 99 98 01/13/21 19:31 01/13/21 19:46 01/13/21 20:00 Pulse Rate 55 L 53 L 58 L Respiratory Rate 15 9 L 16 Blood Pressure 136/65 169/70 H Pulse Oximetry 99 100 99 01/13/21 20:01 01/13/21 20:16 01/13/21 20:30 Pulse Rate 58 L 55 L 53 L Respiratory Rate 17 18 11 L Blood Pressure 175/79 H 181/115 H Pulse Oximetry 100 01/13/21 20:31 01/13/21 20:46 01/13/21 21:00 Pulse Rate 52 L 114 H 53 L Respiratory Rate 12 28 H 14 Blood Pressure 157/71 H 161/87 H 164/74 H Pulse Oximetry 97 99 01/13/21 21:16 01/13/21 21:30 01/13/21 21:31 Pulse Rate 53 L 53 L 58 L Respiratory Rate 11 L 12 11 L Blood Pressure 173/74 H 100/55 L Pulse Oximetry 99 99 99 01/13/21 22:00 01/13/21 22:01 01/13/21 22:15 Pulse Rate 51 L 54 L 51 L Respiratory Rate 15 15 13 Blood Pressure 121/60 108/54 L Pulse Oximetry 98 99 98 01/13/21 22:30 01/13/21 22:31 01/13/21 22:45 Pulse Rate 87 125 H 54 L Respiratory Rate 19 19 16 Blood Pressure 150/70 H 149/70 H Pulse Oximetry 99 99 99 01/13/21 23:00 01/13/21 23:01 01/13/21 23:21 Pulse Rate 60 55 L 70 Respiratory Rate 19 11 L 22 Blood Pressure 198/82 H 180/76 H Pulse Oximetry 97 97 98 01/13/21 23:30 01/13/21 23:31 01/13/21 23:45 Pulse Rate 59 L 55 L 56 L Respiratory Rate 14 15 17 Blood Pressure 156/68 H 163/72 H Pulse Oximetry 97 97 98 01/14/21 00:00 01/14/21 00:16 01/14/21 00:30 Pulse Rate 61 52 L 63 Respiratory Rate 10 L 11 L 15 Blood Pressure 154/65 H 162/70 H Pulse Oximetry 98 93 95 01/14/21 00:32 01/14/21 00:46 01/14/21 01:00 Pulse Rate 83 72 64 Respiratory Rate 23 20 16 Blood Pressure 200/84 H 179/76 H 180/77 H Pulse Oximetry 95 01/14/21 01:15 01/14/21 01:30 01/14/21 01:31 Pulse Rate 55 L 78 Respiratory Rate 16 15 Blood Pressure 184/78 H 171/75 H Pulse Oximetry Oxygen Delivery Method Room Air Narrative Exam Narrative: General: Patient is a well-developed, well-nourished male in no distress at this time. His is at the bedside. HEENT: Normocephalic, atraumatic, extraocular muscles intact, oral pharynx is clear and mucous membranes are moist. Neck is supple and symmetric, trachea is midline, no adenopathy, no thyroid enlargement, nontender, no masses palpated. Negative for JVD Chest: Normal AP diameter and contour without kyphoscoliosis, no nasal flaring, retractions, or tachypneic labored Lungs: Auscultation of all lung adhikari are clear without adventitious sounds, wheezes, rhonchi, or rales. Cardio: S1 & S2 with regular rate and rhythm without murmur, rubs, or gallops, no carotid bruit, no cardiac pulsations present. Abdomen: Soft nontender, negative for organomegaly, or masses. Bowel sounds are present in all 4 quadrants without guarding or rebound, no CVA tenderness. Patient has an artificial sphincter in the urethra, compression in the right testicular area is required to express urine. Musculoskeletal: Muscle strength and tone are equal within normal limits, no deformity, crepitus, effusions, cyanosis, clubbing or edema present. Full range of motion intact radial and pedal pulses are normal. Skin: Warm dry and intact without rashes, ulcerations or petechiae. Neuro: Alert and orientated x3, strength is +5/5 in all extremities, sensation to touch intact, no gross deficits noted of cranial nerves. Psych: Patient has a well-kept appearance, appropriate affect, poor historian and no recall. Objective Labs Result Diagrams: 01/14/21 06:10 01/14/21 06:10 Labs: Laboratory Results - last 24 hr 01/13/21 01/13/21 01/13/21 18:15 18:15 18:15 WBC 9.9 RBC 3.79 L Hgb 11.2 L Hct 33.4 L MCV 88.0 MCH 29.5 MCHC 33.6 RDW 14.6 Plt Count 205 Neut % (Auto) 70.2 Lymph % (Auto) 16.1 L [place] % (Auto) 9.2 Eos % (Auto) 3.6 Baso % (Auto) 0.9 Neut # (Auto) 7000 Lymph # (Auto) 1600 [place] # (Auto) 900 Eos # (Auto) 400 Baso # (Auto) 100 Sodium 139 Potassium 3.7 Chloride 102 Carbon Dioxide 32 BUN 46 H Creatinine 2.73 H Estimated GFR 22.4 L BUN/Creatinine Ratio 16.8 Glucose 98 Calcium 9.6 Total Bilirubin 0.7 AST 23 ALT < 4 Alkaline Phosphatase 85 Total Creatine Kinase 85 CK-MB (CK-2) TNP CK-MB (CK-2) Rel Index TNP Troponin I 0.025 NT-Pro-B Natriuret Pep Total Protein 7.6 Albumin 4.1 Globulin 3.5 Albumin/Globulin Ratio 1.2 Urine Color Urine Appearance Urine pH Ur Specific [place] Urine Protein Urine Glucose (UA) Urine Ketones Urine Occult Blood Urine Nitrate Urine Bilirubin Urine Urobilinogen Ur Leukocyte Esterase Urine RBC Urine WBC Urine Bacteria Ur Culture Indicated? U Opiates 300ng/mL cut Ur Oxycodone Screen Urine Methadone Screen Ur Barbiturates Screen U Tricyclic Antidepress Ur Phencyclidine Scrn Ur Amphetamines Screen U Methamphetamines Scrn Ur MDMA Scrn (Ecstasy) U Benzodiazepines Scrn Urine Cocaine Screen U Marijuana (THC) Screen SARS-CoV-2 (PCR) 01/13/21 01/13/21 01/13/21 18:15 20:50 20:50 WBC RBC Hgb Hct MCV MCH MCHC RDW Plt Count Neut % (Auto) Lymph % (Auto) [place] % (Auto) Eos % (Auto) Baso % (Auto) Neut # (Auto) Lymph # (Auto) [place] # (Auto) Eos # (Auto) Baso # (Auto) Sodium Potassium Chloride Carbon Dioxide BUN Creatinine Estimated GFR BUN/Creatinine Ratio Glucose Calcium Total Bilirubin AST ALT Alkaline Phosphatase Total Creatine Kinase CK-MB (CK-2) CK-MB (CK-2) Rel Index Troponin I NT-Pro-B Natriuret Pep 2450 H Total Protein Albumin Globulin Albumin/Globulin Ratio Urine Color Yellow Urine Appearance Clear Urine pH 7.0 Ur Specific [place] 1.010 Urine Protein Negative Urine Glucose (UA) Negative Urine Ketones Negative Urine Occult Blood Negative Urine Nitrate Negative Urine Bilirubin Negative Urine Urobilinogen 0.2 Ur Leukocyte Esterase Negative Urine RBC 0-1/hpf Urine WBC 0-1/hpf Urine Bacteria None seen Ur Culture Indicated? Cult not indicated U Opiates 300ng/mL cut Negative Ur Oxycodone Screen Negative Urine Methadone Screen Negative Ur Barbiturates Screen Negative U Tricyclic Antidepress Negative Ur Phencyclidine Scrn Negative Ur Amphetamines Screen Negative U Methamphetamines Scrn Negative Ur MDMA Scrn (Ecstasy) Negative U Benzodiazepines Scrn Negative Urine Cocaine Screen Negative U Marijuana (THC) Screen Negative SARS-CoV-2 (PCR) 01/13/21 22:35 WBC RBC Hgb Hct MCV MCH MCHC RDW Plt Count Neut % (Auto) Lymph % (Auto) [place] % (Auto) Eos % (Auto) Baso % (Auto) Neut # (Auto) Lymph # (Auto) [place] # (Auto) Eos # (Auto) Baso # (Auto) Sodium Potassium Chloride Carbon Dioxide BUN Creatinine Estimated GFR BUN/Creatinine Ratio Glucose Calcium Total Bilirubin AST ALT Alkaline Phosphatase Total Creatine Kinase CK-MB (CK-2) CK-MB (CK-2) Rel Index Troponin I NT-Pro-B Natriuret Pep Total Protein Albumin Globulin Albumin/Globulin Ratio Urine Color Urine Appearance Urine pH Ur Specific [place] Urine Protein Urine Glucose (UA) Urine Ketones Urine Occult Blood Urine Nitrate Urine Bilirubin Urine Urobilinogen Ur Leukocyte Esterase Urine RBC Urine WBC Urine Bacteria Ur Culture Indicated? U Opiates 300ng/mL cut Ur Oxycodone Screen Urine Methadone Screen Ur Barbiturates Screen U Tricyclic Antidepress Ur Phencyclidine Scrn Ur Amphetamines Screen U Methamphetamines Scrn Ur MDMA Scrn (Ecstasy) U Benzodiazepines Scrn Urine Cocaine Screen U Marijuana (THC) Screen SARS-CoV-2 (PCR) Negative Assessment & Plan Assessment & Plan narrative: 1.Acute kidney injury secondary to urinary retention enlarged bladder pressures with bilateral hydronephrosis with postobstructive diuresis, suspect acute on chronic, secondary to artificial urethral sphincter, present on admission admit vitals temp 98.5?, BP 163/72, HR 56, R 17, 98% on room air. Labs HGB 11.2, HCT 33.4, BUN 46, creatinine 2.73, EGFR 22.4, proBNP 2450 urinalysis negative. ECG: AFib with slow ventricular response rate of 57, QRS of 90 QTC of 436. Nonspecific change. Patient has prior EKG from 08/20/2020 which has similar AFib with slow response as well as segment changes. Head CT:Acute disease in the brain. Stable mild ventricular prominence. Paranasal sinus disease noted. CT scan abdomen/pelvis: Markedly distended urinary bladder estimate to measure 26 cm on sagittal image 54. Associated severe bilateral hydroureteronephrosis without evidence of an obstructing stone. Sub cm stone in the right kidney. Mild nonspecific perinephric stranding noted bilaterally. Liver has mildly nodular contour. No evidence of abdominal aortic aneurysm. Surgical clips noted in the pelvis. Reportedly the patient has a history of artificial urinary sphincter placement. No evidence of bowel obstruction or free air. No pericolonic inflammation. -Consult in ED: Dr. Dawson is happy to follow the patient this morning. He request do not place a [place] catheter. This cannot be done until his artificial sphincter deactivated. He recommends to continue pumping the bladder sphincter to drain urine regularly. Bladder scans Q 2 hours and if patient has greater than 500 cc of urine retention to up the catheter. Admit to floor vital signs Q4hrs, check orthostatics on admission and once per shift, activity as tolerated, initially manually activate sphincter decompression of bladder to maintain bladder urine residual less than 500 cc, bladder scan Q hour or as needed, nursing to place a Martinez once Dr. Dawson deactivates urethral sphincter device tomorrow, strict I&O, daily weights, call for urinary output less than 200 mL per shift or an SaO2 less than 92%, diet renal low-sodium low-potassium, normal saline 50 cc/hour to attempt to correct postobstructive diuresis and reassess or fluid restriction depending on volume status. Meds discontinued nephrotoxic medications Labs UA with microscopy, CBC, CMP, CA 2+, Mag, phosphate, FeNa, urinary Na, urine osmolality, urine specific gravity, and urine sediment, PT PTT INR, renal ultrasound 2.BPHParoxysmal atrial fibrillation on warfarin, chronic, present on admission, stable. -patient anticoagulated with warfarin with an INR of 3.0. Hold coumadin today then Continue warfarin dosing per home regimen 5 mg daily with warfarin 2.5 on Wednesdays and Saturdays. -patient had a permanent pacemaker implantation in April 2020. - Will obtain a magnesium level. monitor electrolyte levels -Continue metoprolol succinate 25 mg daily. 3. Heart failure, unknown type, present on admission, stable. -no acute exacerbation of CHF breath sounds clear but diminished bibasilar, no cough or shortness of breath. Spouse denies change in bilateral leg edema, presently 2+. No overt symptoms of decompensated heart failure. -Continue home bumetanide 2 mg twice daily. -Continued monitor electrolytes and replete as necessary. 4. BPH with urinary retention, chronic, present on admission, stable. -Patient has a history of prostate cancer status post prostatectomy with lymph node clips and penile implant in place and artificial sphincter. -positive bladder distension, will bladder scan as needed, and staff to activate spincter to produce urine out put to maintain bladder volume less than 500cc until Dr. Dawson sees the patient Deactivate device and then Martinez will be placed. 5. Parkinson's disease, chronic, present on admission, stable. -Continued home carbidopa/levodopa 1.5 tab 3 times daily. 6. GERD, chronic, present on admission, stable. -Continue home Protonix 40 mg daily. VTE prophylaxis: SCDs, contraindicated patient on Coumadin Code status: Full code, patient designates his to be surrogate decision maker. COVID PCR: negative Code status: Surrogate/plan of care: COVID PCR: VTE prophylaxis:
--- NOTE | 2021-01-14 04:37 | PC.NURSE ---
0145 Pt. admitted to the floor in room 213, accompanied by his Katherin C/O increasing weakness, frequent fall , POLLY & malfunctioning artificial urinary sphincter. 3+ pitting edema to BLE's, sacral & periorbital edema. bladder scanned 999+ noted in the Bladder & drained 975 cc + inc. x2 Denies any CP. Artificial sphincter has been activated 3 sessions to & pt. C/O being sore @ the sphincter site. Notified KONG Beltran ordered to cont. to drain bladder until less than 500 cc in the bladder. Pt. requested to rest for now testicles are very painful at this time. Denies any CP & other discomfort. BLE's measurement are calves 16 inches, Lt. ankle 12 in. foot 12 in. Rt. ankle 11 & foot 12. Will cont. POC & monitor.
--- NOTE | 2021-01-14 04:57 | PC.NURSE ---
Verified with KONG Beltran IVF of NS @ 150cc/hr. ordered. States yes we need to replaced urine output. Also informed that pt. requested to let him rest for now sphincter site was very tendr & painful. Will implement order & monitor.
[2021-01-14] MEDS: SODIUM CHLORIDE 0.9% 1,000 ML 150 ML IV ×3 (05:15→18:55)
--- NOTE | 2021-01-14 05:56 | PC.NURSE ---
Voided 225 cc of clear yellow urine after gently squeezing artificial urinary sphincter & baldder scanned noted 555 cc in his bladder. KONG Beltran notified. Will cont. POC & monitor.
[2021-01-14 06:30] LABS: Add Manual Diff / Slide Review NO; Basophils Absolute Auto 100 /uL (0-100); Basophils Percent Auto 0.7 % (0-2); Eosinophils Absolute Auto 400 /uL (0-450); Eosinophils Percent Auto 5.1 % (2-4); Hematocrit 32.1 % (41-53); Hemoglobin 10.7 g/dL (13.5-17.5); Lymphocytes Absolute Auto 1700 /uL (1100-4500); Lymphocytes Percent Auto 21.6 % (25-40); Mean Corpuscular HGB Conc 33.2 % (30-36); Mean Corpuscular Hemoglobin 29.4 PG (26-34); Mean Corpuscular Volume 88.5 fL (80-100); Monocytes Absolute Auto 1000 /uL (0-900); Neutrophils Absolute Auto 4900 /uL (1500-7000); Neutrophils Percent Auto 60.6 % (50-75); Platelet Count 176 X10^3/uL (150-400); Red Blood Cell Count 3.63 X10^6/uL (4.5-5.9); Red Cell Distribution Width 14.7 % (11.6-14.8); White Blood Cell Count 8.1 X10^3/uL (4.5-11.0)
[2021-01-14 06:32] LABS: Prothrombin Time 34.9 SECONDS (10.1-12.7)
[2021-01-14 06:37] LABS: BUN Creatinine Ratio 16.7 (6-22); Blood Urea Nitrogen 46 mg/dL (9-20); Calcium 9.1 mg/dL (8.4-10.2); Carbon Dioxide 30 mmol/L (22-32); Chloride 104 mmol/L (98-107); Estimated Glomerular Filt Rate 22.3 mL/min (>60); Glucose 81 mg/dL (80-110); HEMOLYSIS < 15 (0-50); Magnesium 2.1 mg/dL (1.6-2.3); Potassium 3.6 mmol/L (3.4-5.1); Sodium 140 mmol/L (137-145)
[2021-01-14 06:45] LABS: NT-proBNP (BNP-Adult 18+) 2550 pg/mL (<450)
--- NOTE | 2021-01-14 07:44 | PM.CN ---
History of Present Illness Consult details Date Patient Seen: 01/14/21 Time Patient Seen: 07:44 Chief complaint: Weakness Reason for consult: 1. Urinary retention 2. Acute kidney injury Requesting provider: Clare Frias Narrative: Tarik is an 80-year-old white male who presented to the [facility] Emergency Department with chief complaint of weakness and failure to thrive. He has a history of frequent falls and is on chronic warfarin anticoagulation. His stated that he more last rolled in slid out of bed and was so weak she could not manage the situation. Upon presentation an initial evaluation in the ED it was evident that he had acute kidney injury with a creatinine of 2.75. CT of abdomen demonstrated a markedly distended bladder. Upon my review the dome of the bladder extends to the level of the renal hilum. The patient is status post remote radical prostatectomy for prostate cancer. He is status post placement of artificial urinary sphincter x3. His states that a recent weeks or prior apps months he has required the use of diapers due to incontinence. 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 Discussion with Dr. Frias very early this morning from the ED. provided instruction on how to operate the pump portion of the artificial urinary sphincter for bladder emptying. Indeed, staff was successful and operation of the device and nursing has maintained attendance wall on the inpatient floor. His most previous urologist was at [facility], was now retired. Meds Home Medications and Allergies Home Medications Medication Instructions Recorded Confirmed Type bumetanide 2 mg PO BID 07/24/18 01/14/21 History carbidopa-levodopa 1.5 tab PO TID 07/24/18 01/14/21 History cholecalciferol (vitamin D3) 1,000 unit PO DAILY 07/24/18 01/14/21 History [Vitamin D3] metoprolol succinate 25 mg PO DAILY 07/24/18 01/14/21 History potassium chloride 10 meq PO BID 07/24/18 01/14/21 History tolterodine 2 mg PO DAILY 07/24/18 01/14/21 History famotidine [Pepcid] 20 mg PO BID 12/29/19 01/14/21 History nitroglycerin 0.4 mg SUBLINGUAL Q5-15M PRN 12/29/19 01/14/21 History docusate sodium [Colace] 100 mg PO BID #60 cap 12/31/19 01/14/21 Rx warfarin See Rx Instructions .ROUTE .COMPLEX 08/20/20 01/14/21 History Allergies Allergy/AdvReac Type Severity Reaction Status Date / Time penicillin G Allergy Swelling Verified 10/26/20 10:18 of Lip/Tongue/Throat hydrochlorothiazide AdvReac Verified 10/26/20 10:18 lisinopril AdvReac Cough Verified 10/26/20 10:18 simvastatin [From Zocor] AdvReac Weakness Verified 10/26/20 10:18 Review of Systems Review of Systems ROS: Yes unobtainable due to mental status Exam Vital Signs (past 8 hours): - 01/13/21 23:45 01/14/21 00:00 01/14/21 00:16 Temperature Pulse Rate 56 L 61 52 L Respiratory Rate 17 10 L 11 L Blood Pressure 163/72 H 154/65 H 162/70 H Pulse Oximetry 98 98 93 01/14/21 00:30 01/14/21 00:32 01/14/21 00:46 Temperature Pulse Rate 63 83 72 Respiratory Rate 15 23 20 Blood Pressure 200/84 H 179/76 H Pulse Oximetry 95 95 01/14/21 01:00 01/14/21 01:15 01/14/21 01:30 Temperature Pulse Rate 64 55 L 78 Respiratory Rate 16 16 15 Blood Pressure 180/77 H 184/78 H Pulse Oximetry 01/14/21 01:31 01/14/21 01:57 01/14/21 02:15 Temperature 97.8 F Pulse Rate 56 L Respiratory Rate 14 Blood Pressure 171/75 H 152/61 H Pulse Oximetry 98 98 01/14/21 06:00 Temperature 97.3 F L Pulse Rate 50 L Respiratory Rate 16 Blood Pressure 143/75 H Pulse Oximetry 98 Oxygen Delivery Method Room Air Oxygen Flow Rate 0 Narrative Exam Narrative: He is a well-developed, well-nourished, elderly gentleman in no acute distress and with good hygiene. Head/neck-sclera clear pupils are equal round bilaterally. Chest-clear, equal, nonlabored expansion bilaterally. There is a well-healed pacemaker site without fluctuance tenderness or erythema. Heart-regular rhythm in regular rate. Abdomen-normal active bowel tones. Protuberant and no tenderness elicited. Genitalia-normal adult circumcised male. Meatus is patent and orthotopic. Scrotum is without rash or mass. Testes descended bilaterally without mass, tenderness, or fluid collection. The AUS pump is readily located and is in excellent position. The bulb is depressed and the cuff completely emptied. The cuff was then allowed to fill partially before the deactivation button was depressed. This maneuver will effectively allowed the bladder to drain freely with bladder contraction or with gravity. Objective Labs Result Diagrams: 01/14/21 06:10 01/14/21 06:10 Labs: Laboratory Results - last 24 hr 01/13/21 01/13/21 01/13/21 18:15 18:15 18:15 WBC 9.9 RBC 3.79 L Hgb 11.2 L Hct 33.4 L MCV 88.0 MCH 29.5 MCHC 33.6 RDW 14.6 Plt Count 205 Neut % (Auto) 70.2 Lymph % (Auto) 16.1 L [place] % (Auto) 9.2 Eos % (Auto) 3.6 Baso % (Auto) 0.9 Neut # (Auto) 7000 Lymph # (Auto) 1600 [place] # (Auto) 900 Eos # (Auto) 400 Baso # (Auto) 100 PT INR Sodium 139 Potassium 3.7 Chloride 102 Carbon Dioxide 32 BUN 46 H Creatinine 2.73 H Estimated GFR 22.4 L BUN/Creatinine Ratio 16.8 Glucose 98 Calcium 9.6 Phosphorus Magnesium Total Bilirubin 0.7 AST 23 ALT < 4 Alkaline Phosphatase 85 Total Creatine Kinase 85 CK-MB (CK-2) TNP CK-MB (CK-2) Rel Index TNP Troponin I 0.025 NT-Pro-B Natriuret Pep Total Protein 7.6 Albumin 4.1 Globulin 3.5 Albumin/Globulin Ratio 1.2 Urine Color Urine Appearance Urine pH Ur Specific [place] Urine Protein Urine Glucose (UA) Urine Ketones Urine Occult Blood Urine Nitrate Urine Bilirubin Urine Urobilinogen Ur Leukocyte Esterase Urine RBC Urine WBC Urine Bacteria Ur Culture Indicated? U Opiates 300ng/mL cut Ur Oxycodone Screen Urine Methadone Screen Ur Barbiturates Screen U Tricyclic Antidepress Ur Phencyclidine Scrn Ur Amphetamines Screen U Methamphetamines Scrn Ur MDMA Scrn (Ecstasy) U Benzodiazepines Scrn Urine Cocaine Screen U Marijuana (THC) Screen SARS-CoV-2 (PCR) 01/13/21 01/13/21 01/13/21 18:15 20:50 20:50 WBC RBC Hgb Hct MCV MCH MCHC RDW Plt Count Neut % (Auto) Lymph % (Auto) [place] % (Auto) Eos % (Auto) Baso % (Auto) Neut # (Auto) Lymph # (Auto) [place] # (Auto) Eos # (Auto) Baso # (Auto) PT INR Sodium Potassium Chloride Carbon Dioxide BUN Creatinine Estimated GFR BUN/Creatinine Ratio Glucose Calcium Phosphorus Magnesium Total Bilirubin AST ALT Alkaline Phosphatase Total Creatine Kinase CK-MB (CK-2) CK-MB (CK-2) Rel Index Troponin I NT-Pro-B Natriuret Pep 2450 H Total Protein Albumin Globulin Albumin/Globulin Ratio Urine Color Yellow Urine Appearance Clear Urine pH 7.0 Ur Specific [place] 1.010 Urine Protein Negative Urine Glucose (UA) Negative Urine Ketones Negative Urine Occult Blood Negative Urine Nitrate Negative Urine Bilirubin Negative Urine Urobilinogen 0.2 Ur Leukocyte Esterase Negative Urine RBC 0-1/hpf Urine WBC 0-1/hpf Urine Bacteria None seen Ur Culture Indicated? Cult not indicated U Opiates 300ng/mL cut Negative Ur Oxycodone Screen Negative Urine Methadone Screen Negative Ur Barbiturates Screen Negative U Tricyclic Antidepress Negative Ur Phencyclidine Scrn Negative Ur Amphetamines Screen Negative U Methamphetamines Scrn Negative Ur MDMA Scrn (Ecstasy) Negative U Benzodiazepines Scrn Negative Urine Cocaine Screen Negative U Marijuana (THC) Screen Negative SARS-CoV-2 (PCR) 01/13/21 01/14/21 01/14/21 22:35 06:10 06:10 WBC 8.1 RBC 3.63 L Hgb 10.7 L Hct 32.1 L MCV 88.5 MCH 29.4 MCHC 33.2 RDW 14.7 Plt Count 176 Neut % (Auto) 60.6 Lymph % (Auto) 21.6 L [place] % (Auto) 12.0 Eos % (Auto) 5.1 H Baso % (Auto) 0.7 Neut # (Auto) 4900 Lymph # (Auto) 1700 [place] # (Auto) 1000 H Eos # (Auto) 400 Baso # (Auto) 100 PT 34.9 H INR 3.0 H Sodium Potassium Chloride Carbon Dioxide BUN Creatinine Estimated GFR BUN/Creatinine Ratio Glucose Calcium Phosphorus Magnesium Total Bilirubin AST ALT Alkaline Phosphatase Total Creatine Kinase CK-MB (CK-2) CK-MB (CK-2) Rel Index Troponin I NT-Pro-B Natriuret Pep Total Protein Albumin Globulin Albumin/Globulin Ratio Urine Color Urine Appearance Urine pH Ur Specific [place] Urine Protein Urine Glucose (UA) Urine Ketones Urine Occult Blood Urine Nitrate Urine Bilirubin Urine Urobilinogen Ur Leukocyte Esterase Urine RBC Urine WBC Urine Bacteria Ur Culture Indicated? U Opiates 300ng/mL cut Ur Oxycodone Screen Urine Methadone Screen Ur Barbiturates Screen U Tricyclic Antidepress Ur Phencyclidine Scrn Ur Amphetamines Screen U Methamphetamines Scrn Ur MDMA Scrn (Ecstasy) U Benzodiazepines Scrn Urine Cocaine Screen U Marijuana (THC) Screen SARS-CoV-2 (PCR) Negative 01/14/21 06:10 WBC RBC Hgb Hct MCV MCH MCHC RDW Plt Count Neut % (Auto) Lymph % (Auto) [place] % (Auto) Eos % (Auto) Baso % (Auto) Neut # (Auto) Lymph # (Auto) [place] # (Auto) Eos # (Auto) Baso # (Auto) PT INR Sodium 140 Potassium 3.6 Chloride 104 Carbon Dioxide 30 BUN 46 H Creatinine 2.75 H Estimated GFR 22.3 L BUN/Creatinine Ratio 16.7 Glucose 81 Calcium 9.1 Phosphorus 4.0 H Magnesium 2.1 Total Bilirubin AST ALT Alkaline Phosphatase Total Creatine Kinase CK-MB (CK-2) CK-MB (CK-2) Rel Index Troponin I NT-Pro-B Natriuret Pep 2550 H Total Protein Albumin Globulin Albumin/Globulin Ratio Urine Color Urine Appearance Urine pH Ur Specific [place] Urine Protein Urine Glucose (UA) Urine Ketones Urine Occult Blood Urine Nitrate Urine Bilirubin Urine Urobilinogen Ur Leukocyte Esterase Urine RBC Urine WBC Urine Bacteria Ur Culture Indicated? U Opiates 300ng/mL cut Ur Oxycodone Screen Urine Methadone Screen Ur Barbiturates Screen U Tricyclic Antidepress Ur Phencyclidine Scrn Ur Amphetamines Screen U Methamphetamines Scrn Ur MDMA Scrn (Ecstasy) U Benzodiazepines Scrn Urine Cocaine Screen U Marijuana (THC) Screen SARS-CoV-2 (PCR) Assessment & Plan Assessment & Plan narrative: Assessment: 1. Urinary retention due to patient inability to reliably operate AUS. 2. POLLY secondary to 1. Plan: 1. The device is deactivated. This allows free flow of urine from his bladder out of his body and into a incontinent pad or diaper. Due to current and advancing dementia the device should remain deactivated the remainder of the patient's life. His bladder should be managed only with external appliances in the future. I discussed this at considerable length at the bedside with his . 2. Do not catheterize patient. 3. Measure urine outputs by diaper weights. 4. May follow-up with [facility] in the future as needed, but there are no active issues provided the above assessment and instructions followed.
[2021-01-14] MEDS: CARBIDOPA-LEVODOPA ER 50/200 TABLET 1.5 EACH PO ×3 (09:12→20:37)
[2021-01-14] MEDS: DOCUSATE 100 MG CAPSULE PO ×2 (09:13→20:38)
[2021-01-14] MEDS: POTASSIUM CHLORIDE 10 MEQ TAB PO ×2 (09:13→20:38)
[2021-01-14] MEDS: BUMETANIDE 1 MG TABLET 2 MG PO (09:13)
[2021-01-14] MEDS: FAMOTIDINE 20 MG TABLET PO (09:13)
--- NOTE | 2021-01-14 10:10 | PC.NURSE ---
Addendum entered by Steffany Yoo R.N. 01/14/21 11:51: Below note error: Patients 3rd wet brief weighted 747g and his post void residual was 342cc. This is down from the 600 pvr previously. Addendum entered by Steffany Yoo R.N. 01/14/21 11:50: Patient had his third wet brief and is weight 747g, his pvr is down in the 200s now. He has been repositioned and changed. Addendum entered by Steffany Yoo R.N. 01/14/21 11:21: Discussed PVR with and he is aware that patient has 600 in his bladder and that we are weighing his briefs. He states that patient should start putting out more urine and pvr should decrease. Original Note: Assess- Patient has been alert and oriented x3 this morning, Dr. Florian in and consulted with patient. Tarik has and artificial spinture that he has to pump up and then deflate and this is the way that he expels his urine. Patient came in because this device had been leaking. Dr. Florian deflated spinture and now patient is constantly leaking urine, He has had 2 wet briefs both weighing 590g and 264g, urologist states that we need to try and do strict intake and output on patient. He was bladder scanned earlier and after brief changed has a pvr of 600 cc. suggested a condom cath, tried and keep falling off of patients penis. Waiting to talk to regarding pvr.
[2021-01-14 16:05] LABS: BUN Creatinine Ratio 17.3 (6-22); Blood Urea Nitrogen 44 mg/dL (9-20); Calcium 8.9 mg/dL (8.4-10.2); Carbon Dioxide 32 mmol/L (22-32); Chloride 105 mmol/L (98-107); Estimated Glomerular Filt Rate 24.4 mL/min (>60); Glucose 122 mg/dL (80-110); HEMOLYSIS < 15 (0-50); Potassium 3.9 mmol/L (3.4-5.1); Sodium 140 mmol/L (137-145)
[2021-01-14] MEDS: WARFARIN 5 MG TABLET 7.5 MG PO (18:55)
[2021-01-14] MEDS: METOPROLOL ER 25 MG TABLET 12.5 MG PO (20:38)
[2021-01-15] VITALS (16 sets, daily range): BP systolic 148–176; BP diastolic 67–110; PULSE 70–91; RESP 16–20; TEMP 36.6–37.4; O2SAT 92–98
[2021-01-15] MEDS: SODIUM CHLORIDE 0.9% 1,000 ML 150 ML IV (01:53)
[2021-01-15 05:59] LABS: Add Manual Diff / Slide Review NO; Basophils Absolute Auto 0 /uL (0-100); Basophils Percent Auto 0.2 % (0-2); Eosinophils Absolute Auto 200 /uL (0-450); Eosinophils Percent Auto 1.4 % (2-4); Hematocrit 33.5 % (41-53); Hemoglobin 10.8 g/dL (13.5-17.5); Lymphocytes Absolute Auto 1300 /uL (1100-4500); Lymphocytes Percent Auto 10.2 % (25-40); Mean Corpuscular HGB Conc 32.3 % (30-36); Mean Corpuscular Hemoglobin 28.7 PG (26-34); Mean Corpuscular Volume 89.1 fL (80-100); Monocytes Absolute Auto 1200 /uL (0-900); Monocytes Percent Auto 9.7 % (3-14); Neutrophils Absolute Auto 10000 /uL (1500-7000); Neutrophils Percent Auto 78.5 % (50-75); Platelet Count 194 X10^3/uL (150-400); Red Blood Cell Count 3.76 X10^6/uL (4.5-5.9); Red Cell Distribution Width 14.5 % (11.6-14.8); White Blood Cell Count 12.8 X10^3/uL (4.5-11.0)
[2021-01-15 06:00] LABS: INR 3.3 (0.9-1.3); Prothrombin Time 37.6 SECONDS (10.1-12.7)
[2021-01-15 06:04] LABS: BUN Creatinine Ratio 17.4 (6-22); Blood Urea Nitrogen 41 mg/dL (9-20); Calcium 8.4 mg/dL (8.4-10.2); Carbon Dioxide 29 mmol/L (22-32); Chloride 106 mmol/L (98-107); Estimated Glomerular Filt Rate 26.6 mL/min (>60); Glucose 101 mg/dL (80-110); HEMOLYSIS < 15 (0-50); Magnesium 1.7 mg/dL (1.6-2.3); Potassium 3.6 mmol/L (3.4-5.1); Sodium 140 mmol/L (137-145)
[2021-01-15] MEDS: METOPROLOL IR 25 MG TABLET 12.5 MG PO (06:53)
[2021-01-15] MEDS: levoFLOXacin 750 MG/150 ML PIGGYBACK 100 MG IV (08:21)
[2021-01-15] MEDS: DOCUSATE 100 MG CAPSULE PO ×2 (08:22→21:21)
[2021-01-15] MEDS: BUMETANIDE 1 MG TABLET 2 MG PO (08:22)
[2021-01-15] MEDS: POTASSIUM CHLORIDE 10 MEQ TAB PO ×2 (08:22→21:21)
[2021-01-15] MEDS: FAMOTIDINE 20 MG TABLET 10 MG PO (08:23)
[2021-01-15] MEDS: CARBIDOPA-LEVODOPA ER 50/200 TABLET 1.5 EACH PO ×3 (08:32→21:21)
--- NOTE | 2021-01-15 15:14 | P.PN_ITS ---
Subjective Subjective Date Patient Seen: 01/15/21 Time Patient Seen: 15:17 Interval history: Damian Marquez is an 80 year old male with PMH of Parkinson's disease, paroxysmal atrial fibrillation, and artificial urethral sphincter who was admitted with difficulties with his artificial urethral sphincter leading to urinary retention, POLLY, and bilateral hydronephrosis. The device was deactivated by Urology yesterday, and urine output has been monitored. His POLLY has improved today with a creatinine of 2.36. Given a dose of levaquin overnight however negative UA, will discontinue at this time. Patient denies complaints today including abdominal pain, chest pain, palpitations. Will discontinue continuous fluids today and continue to monitor for post-obstructive diuresis. Possible discharge to SNF, PT/OT ordered today. Exam Vital Signs (past 8 hours): - 01/15/21 08:09 01/15/21 09:00 01/15/21 11:25 Temperature 98.7 F 98.1 F Pulse Rate 72 70 Respiratory Rate 19 17 Blood Pressure 150/97 H 148/83 H Pulse Oximetry 92 92 93 01/15/21 13:00 Temperature Pulse Rate Respiratory Rate Blood Pressure Pulse Oximetry 94 Oxygen Delivery Method Room Air Oxygen Flow Rate 0 Narrative Exam Narrative: General: Patient is a well-developed, well-nourished male in no distress at this time. His is at the bedside. HEENT: Normocephalic, atraumatic, extraocular muscles intact, oral pharynx is clear and mucous membranes are moist. Neck is supple and symmetric, trachea is midline, no adenopathy, no thyroid enlargement, nontender, no masses palpated. Negative for JVD Chest: Normal AP diameter and contour without kyphoscoliosis, no nasal flaring, retractions, or tachypneic labored Lungs: Auscultation of all lung adhikari are clear without adventitious sounds, wheezes, rhonchi, or rales. Cardio: S1 & S2 with regular rate and rhythm without murmur, rubs, or gallops, no carotid bruit, no cardiac pulsations present. Abdomen: Soft nontender, negative for organomegaly, or masses. No guarding or rebound, no CVA tenderness. Patient has an artificial sphincter in the urethra Musculoskeletal: Muscle strength and tone are equal within normal limits, no deformity, crepitus, effusions, cyanosis, clubbing or edema present. Full range of motion intact radial and pedal pulses are normal. Skin: Warm dry and intact without rashes, ulcerations or petechiae. Neuro: Alert, strength is +5/5 in all extremities, sensation to touch intact, no gross deficits noted of cranial nerves. Psych: Patient has a well-kept appearance, appropriate affect, poor historian and no recall. Objective Labs Result Diagrams: 01/15/21 05:30 01/15/21 05:30 Labs: Laboratory Results - last 24 hr 01/14/21 01/15/21 01/15/21 15:42 05:30 05:30 WBC RBC Hgb Hct MCV MCH MCHC RDW Plt Count Neut % (Auto) Lymph % (Auto) [place] % (Auto) Eos % (Auto) Baso % (Auto) Neut # (Auto) Lymph # (Auto) [place] # (Auto) Eos # (Auto) Baso # (Auto) PT 37.6 H INR 3.3 H Sodium 140 140 Potassium 3.9 3.6 Chloride 105 106 Carbon Dioxide 32 29 BUN 44 H 41 H Creatinine 2.54 H 2.36 H Estimated GFR 24.4 L 26.6 L BUN/Creatinine Ratio 17.3 17.4 Glucose 122 H 101 Calcium 8.9 8.4 Magnesium 2.0 1.7 01/15/21 05:30 WBC 12.8 H D RBC 3.76 L Hgb 10.8 L Hct 33.5 L MCV 89.1 MCH 28.7 MCHC 32.3 RDW 14.5 Plt Count 194 Neut % (Auto) 78.5 H Lymph % (Auto) 10.2 L [place] % (Auto) 9.7 Eos % (Auto) 1.4 L Baso % (Auto) 0.2 Neut # (Auto) 26587 H Lymph # (Auto) 1300 [place] # (Auto) 1200 H Eos # (Auto) 200 Baso # (Auto) 0 PT INR Sodium Potassium Chloride Carbon Dioxide BUN Creatinine Estimated GFR BUN/Creatinine Ratio Glucose Calcium Magnesium [facility] Medical History Atrial fibrillation Congestive heart failure History of gastroesophageal reflux (GERD) History of prostate cancer History of warfarin therapy Hypertension Parkinsons Surgical History History of colonoscopy History of penile implant History of permanent cardiac pacemaker placement History of prostatectomy Social History household members: spouse Smoking Status: Former smoker alcohol intake: current Assessment & Plan Assessment & Plan narrative: Damian Marquez is an 80 year old male with PMH of Par kinson's disease, paroxysmal atrial fibrillation, and artificial urethral sphincter who was admitted with difficulties with his artificial urethral sphincter leading to urinary retention, POLLY, and bilateral hydronephrosis. Device now deactivated and monitoring for post-obstructive diuresis while cre atinine continues to improve. 1.Acute kidney injury secondary to urinary retention with bilateral h ydronephrosis, now monitoring for postobstructive diuresis, suspect acute on chronic, secondary to artificial urethral sphincter, present on admission - continue strict intake and output with measurements of patient diapers, will stop continuous fluids at this time. - POLLY improved today to 2.36, baseline around 1.1-1.3 which likely indicates CKD 3 at baseline. - given dose of levaquin overnight on HD#1 for presumed UTI, however admission UA negative ,will discontinue. Monitor for fever. 2. Paroxysmal atrial fibrillation on warfarin, chronic, present on admission, stable. -patient anticoagulated with warfarin with an INR of 3.3 today, hold tonight, monitor INR. Continue warfarin dosing per home regimen 5 mg daily with warfarin 2.5 on Wednesdays and Saturdays. -patient had a permanent pacemaker implantation in April 2020. -Continue metoprolol succinate 25 mg daily. 3. Chronic Heart failure, unknown type, present on admission, stable. -no known EF, and no TTE available for review. No current indications for repeat echocardiogram. Continue home medications at this time. 4. history of prostate cancer with urinary retention, chronic, present on admission, stable. -Patient has a history of prostate cancer status post prostatectomy with lymph node clips and penile implant in place and artificial sphincter which is now deactivated as discussed above. Should remain deactivated per urology. 5. Parkinson's disease, chronic, present on admission, stable. -Continued home carbidopa/levodopa 1.5 tab 3 times daily. 6. GERD, chronic, present on admission, stable. -Continue home Protonix 40 mg daily. 7. paroxysmal atrial fibrillation, stable - continue warfarin. VTE prophylaxis: on coumadin Code status: Full code, patient designates his to be surrogate decision maker. COVID PCR: negative Dispo: admitted under intpatient status given degree of POLLY and obstruction and need to monitor in this patient for post-obstructive diuresis. Start PT/OT, possible discharge to SNF as soon as tomorrow if he is not excessively urinating and creatinine continues to improve. Quality VTE Deep Vein Thrombosis/Pulmonary Embolism Present on Admission: No
--- NOTE | 2021-01-15 16:56 | PT-IP ANOTE ---
Received PT orders and reviewed the chart. Discussed pt with RN who states pt has required 2-person max assist for repositioning in the bed and has been quite lethargic. PT determines pt would be best served by co-tx with OT. Due to staffing, will hold PT evaluation until morning of 01/16/21.
[2021-01-15] MEDS: WARFARIN 5 MG TABLET 7.5 MG PO (17:13)
[2021-01-15] MEDS: METOPROLOL ER 25 MG TABLET 12.5 MG PO (21:21)
[2021-01-16] VITALS (10 sets, daily range): BP systolic 155–190; BP diastolic 66–82; PULSE 68–79; RESP 16–18; TEMP 36.1–36.9; O2SAT 94–98
--- NOTE | 2021-01-16 01:31 | PC.NURSE ---
0031: patient is oriented to self, birthdate, age and place. Breath sounds diminished but CTA with RA sat of 94%; audible expiratory wheezing after drinking water. HR irregular w/telemetry reading of afib CVR. Denies nausea. BT present and states he is passing flatus. Incontinent of urine. Not turning himself and at risk for skin breakdown so initiated turn schedule. Denies pain. 3+ bilateral LE edema. Fall risk score is high and bed alarm is activated. SCD's reported to have been tried and patient refused.
[2021-01-16 06:06] LABS: Add Manual Diff / Slide Review NO; Basophils Absolute Auto 0 /uL (0-100); Basophils Percent Auto 0.4 % (0-2); Eosinophils Absolute Auto 300 /uL (0-450); Eosinophils Percent Auto 2.9 % (2-4); Hematocrit 31.1 % (41-53); Hemoglobin 10.4 g/dL (13.5-17.5); Lymphocytes Absolute Auto 1400 /uL (1100-4500); Lymphocytes Percent Auto 16.6 % (25-40); Mean Corpuscular HGB Conc 33.4 % (30-36); Mean Corpuscular Hemoglobin 29.5 PG (26-34); Mean Corpuscular Volume 88.3 fL (80-100); Monocytes Absolute Auto 1100 /uL (0-900); Monocytes Percent Auto 12.9 % (3-14); Neutrophils Absolute Auto 5800 /uL (1500-7000); Neutrophils Percent Auto 67.2 % (50-75); Platelet Count 182 X10^3/uL (150-400); Red Blood Cell Count 3.52 X10^6/uL (4.5-5.9); Red Cell Distribution Width 14.3 % (11.6-14.8); White Blood Cell Count 8.7 X10^3/uL (4.5-11.0)
[2021-01-16 06:17] LABS: INR 4.1 (0.9-1.3); Prothrombin Time 47.3 SECONDS (10.1-12.7)
[2021-01-16 06:24] LABS: Blood Urea Nitrogen 36 mg/dL (9-20); Calcium 8.7 mg/dL (8.4-10.2); Carbon Dioxide 29 mmol/L (22-32); Chloride 106 mmol/L (98-107); Estimated Glomerular Filt Rate 32.1 mL/min (>60); Glucose 91 mg/dL (80-110); HEMOLYSIS < 15 (0-50); Magnesium 1.6 mg/dL (1.6-2.3); Potassium 3.2 mmol/L (3.4-5.1); Sodium 140 mmol/L (137-145)
--- NOTE | 2021-01-16 09:27 | PT.IIE ---
Current Diagnoses Acute kidney failure, unspecified (01/14/21) Surgical History (Last Reviewed 01/14/21 @ 07:49 by Corin Dawson MD) History of colonoscopy History of penile implant History of permanent cardiac pacemaker placement History of prostatectomy Medical History (Last Reviewed 01/14/21 @ 07:49 by Corin Dawson MD) Atrial fibrillation Congestive heart failure History of gastroesophageal reflux (GERD) History of prostate cancer History of warfarin therapy Hypertension Parkinsons Physical Therapy Inpatient Evaluation/Re-Eval M1 PT/OT-IP Prior Functional Status Start: 01/15/21 15:55 Freq: NEEDED Status: Active Protocol: Document 01/16/21 09:27 AB (Rec: 01/16/21 12:06 AB [facility] Medical Review Prior Functional Status Medical History Reviewed Yes Communication able to make needs known Mobility and Gait pt stated that his spouse was assisting him at home but able to he is able to do ~ 50% of the task. uses FWW for ambulation Social History Household Members spouse Living Arrangements House Number of Floors (Floors) Two Floors Number of Stairs To Enter/Railing? no steps to enter has a chair lift to get to 2nd level of the house Home Environment High Toilet,Walk in Shower Home Equipment Front Wheel Walker,Quad Cane, Straight Cane,Shower Seat without Backrest,Lift Recliner ,Grab Bars Near Toilet,Grab Bars In Shower M2 PT-IP Current Condition Start: 01/15/21 15:55 Freq: NEEDED Status: Active Protocol: Document 01/16/21 09:27 AB (Rec: 01/16/21 12:06 AB [facility]) Physical Therapy Current Condition Current Condition Evaluation Date 01/16/21 Treatment Diagnosis acute kidney injury; PD; difficulty in walking Onset Date 01/14/21 Precautions Other Precautions falls M3 PT-IP Subjective Start: 01/15/21 15:55 Freq: NEEDED Status: Active Protocol: Document 01/16/21 09:27 AB (Rec: 01/16/21 12:06 AB [facility]) Subjective Physical Therapy Visit Type Type Initial Evaluation Visit Start Time 09:27 Visit Stop Time 09:53 Total Visit Minutes 26 Number of [employer] Visits 0 Physical Therapy Visit Comments Patient Comments pt is agreeable to do PT M4 PT-IP Mobility and Gait Start: 01/15/21 15:55 Freq: NEEDED Status: Active Protocol: Document 01/16/21 09:27 AB (Rec: 01/16/21 12:06 AB [id number]) PT-Bed Mobility Assessment Supine to Sit Supine to Sit Maximum Assistance,1 Person Assistance,2 Person Assistance Scooting Scooting to Edge of Bed Maximum Assistance PT-Transfer Assessment Sit to and From Stand Sit to and from Stand Maximum Assistance,1 Person Assistance,2 Person Assistance ,Use of Upper Extremities Equipment Transfer Assistive Device Gait Belt,Front Wheeled Walker Orthotic/Prosthetic Devices or Brace: No Transfers Transfer Destination Chair Transfer Technique Stand Step Pivot Transfer Ability Level of Assist Maximum Assistance,1 Person Assistance,2 Person Assistance ,Use of Upper Extremities Comments Mobility Comments pt completed supine to sit max A x 1-2 and max cues. pt required max A for initial sitting balance and presents with increase posterior trunk lean and laterl lean to the R. positioned pt and cued for upright posture and required CGA to min A to maintain sitting balance. completed sit to stand from EOB max a x 1-2 and max cues and presents with increase trunk flexion and posterior LOB required max A x 1-2 and max cues for repositioning for upright posture. completed step transfer using FWW max A x 1-2 and max cues. pt agreed to ambulate. completed sit to stand from chair max A x 1-2 and max cues and was able to complete 5 ft using FWW max A and cues with assist to maintain balance and maneuvering FWW. positioned pt on chair. call light and table placed within reach. Gait Assessment Gait Gait Assistance Required: Maximum Assistance,1 Person Assist Distance (Feet) 5 Able to Maintain Weight Bearing Status Yes During Gait Assistive Devices Assistive Device Gait Belt,Front Wheeled Walker Orthotic/Prosthetic Devices or Brace: No Gait Deviations General Gait Pattern Decreased Stride Length, Decreased Feet Clearance, Flexed Trunk,Step-to Gait Factors Limiting Gait Function Factors Limiting Gait Function Decreased Activity Tolerance, Decreased Strength,Difficulty Following Directions,Limited Range of Motion,Poor Balance, Poor Safety Awareness PT-Balance Assessment Sitting Balance and Reactions Static Sitting Balance Ability Fair Dynamic Sitting Balance Ability Poor Standing Balance and Reactions Static Standing Balance Ability Poor Dynamic Standing Balance Ability Poor Device Used FWW M5 PT-IP Objective Assessments Start: 01/15/21 15:55 Freq: NEEDED Status: Active Protocol: Document 01/16/21 09:27 AB (Rec: 01/16/21 12:06 AB [id number]) Orientation Orientation/Cognition Level of Alertness Alert Orientation Name,Year,Place Safety Awareness Decreased Safety Awareness Memory Description Short Term Impaired Gross Range of Motion Lower Extremity ROM Assessment Within Functional Limits Strength Lower Extremity Strength Assessment Bilaterally Impaired Comments Strength Comments RLE 3+/5 LLE 4-/5 Muscle Tone Muscle Tone WNL Yes M6 PT-IP Treatment Start: 01/15/21 15:55 Freq: NEEDED Status: Active Protocol: Document 01/16/21 09:27 AB (Rec: 01/16/21 12:06 AB [facility]) Physical Therapy Treatment Education Education Provided Safety M7 PT-IP Assessment and Plan Start: 01/15/21 15:55 Freq: NEEDED Status: Active Protocol: Document 01/16/21 09:27 AB (Rec: 01/16/21 12:06 AB [facility]) PT Summary Assessment and Plan Potential Rehabilitation Potential Good Status of Condition at Evaluation Evolving Summary Impairments Pain,ROM,Strength,Balance, Coordination,Sensation,Tone, Cognition,Bed Mobility, Transfers,Gait,Activity Tolerance Assessment Summary pt requiring max A 1 -2 and max cues with all tasks. presents with increase posterior trunk lean affecting balance and mobility. pt will require SNF rehab to improve strength. Goals Bed Mobility Goal Contact Guard Assistance Transfer Goal Minimal Assistance,Front Wheeled Walker Gait Goal Minimal Assistance,Front Wheel Walker Gait Distance 100 Other Goals improve bed mobility, transfers to SBA improve ambualtion using FWW CGA 150 ft Days to Meet Goals 10 Frequency of Treatment Frequency Of Treatment Once a Day Treatment Plan Physical Therapy Treatment Plan Bed Mobility Training,Transfer Training,Gait Training, Therapeutic Exercise,Balance Retraining,Discharge Planning, Hot or Cold Pack,Neuromuscular Re-ed,Coordination Retraining ,Manual Therapy Recommendations To Nursing Amount of Assist Needed Mechanical Lift Discharge Recommendations PT Discharge Recommendations SNF Rehab Transportation Needs at Discharge Wheelchair/Cabulance
--- NOTE | 2021-01-16 09:55 | OT.IP.EVAL ---
Current Diagnoses Acute kidney failure, unspecified (01/14/21) Past Medical History (Last Reviewed 01/14/21 @ 07:49 by Corin Dawson MD) Atrial fibrillation Congestive heart failure History of gastroesophageal reflux (GERD) History of prostate cancer History of warfarin therapy Hypertension Parkinsons Surgical History (Last Reviewed 01/14/21 @ 07:49 by Corin Dawson MD) History of colonoscopy History of penile implant History of permanent cardiac pacemaker placement History of prostatectomy Occupational Therapy Inpatient Evaluation/Re-Eval M1 PT/OT-IP Prior Functional Status Start: 01/15/21 15:55 Freq: NEEDED Status: Active Protocol: Document 01/16/21 13:24 CGR (Rec: 01/16/21 13:48 CGR [id number]) Medical Review Prior Functional Status Medical History Reviewed Yes Communication able to make needs known Mobility and Gait pt stated that his spouse was assisting him at home but able to he is able to do ~ 50% of the task. uses FWW for ambulation Activities of Daily Living and IADL's Per chart, pt needed assist for LB dressing and showers. Social History Household Members spouse Living Arrangements House Number of Floors (Floors) Two Floors Number of Stairs To Enter/Railing? no steps to enter has a chair lift to get to 2nd level of the house Home Environment High Toilet,Walk in Shower Home Equipment Front Wheel Walker,Quad Cane, Straight Cane,Shower Seat without Backrest,Lift Recliner ,Grab Bars Near Toilet,Grab Bars In Shower Employment Status Retired M2 OT-IP Current Condition Start: 01/16/21 13:23 Freq: Status: Active Protocol: Document 01/16/21 13:24 CGR (Rec: 01/16/21 13:48 CGR [id number]) Occupational Therapy Current Condition Current Condition Evaluation Date 01/16/21 Treatment Diagnosis multiple falls, urinary retension, ADK Diagnosis Onset Date 01/14/21 M3 OT- IP Subjective and Pain Start: 01/16/21 13:23 Freq: Status: Active Protocol: Document 01/16/21 13:24 CGR (Rec: 01/16/21 13:48 CGR [id number]) OT- Subjective Occupational Therapy Visit Type Type Initial Evaluation Visit Start Time 09:27 Visit Stop Time 09:55 Total Visit Minutes 28 Notes co-treat with AnnalisaT. OT Pain Assessment Pain When Pain Assessed At Rest Pain Present Pain Present Denied Pain M4 OT- IP ADL's Start: 01/16/21 13:23 Freq: Status: Active Protocol: Document 01/16/21 13:24 CGR (Rec: 01/16/21 13:48 CGR [id number]) OT [id number] General Evaluation Self-Feeding Ability Independent Comments OT Self-Feeding Comments Pt finishing breakfast when OT entered. OT ADL-Grooming General Evaluation Grooming Ability Standby Assistance Areas Needing Assistance Face Washing Comments OT Grooming Comments seated in chair OT ADL-Oral Care Comments Oral Care Comments Pt states he already brushed his teeth. OT ADL-Dressing General Eval Lower Body Dressing Ability Total Assistance Areas Needing Assistance Socks OT ADL-Toileting General Evaluation Toileting Ability Total Assistance Comments OT Toileting Comments PT with soild brief when OT entered. Nursing staff doffed brief and donned clean brief while pt is standing. OT ADL-Bathing Comments OT Bathing Comments not performed M5 OT- IP IADL's Start: 01/16/21 13:23 Freq: Status: Active Protocol: Document 01/16/21 13:24 CGR (Rec: 01/16/21 13:48 CGR [id number]) OT-Instrumental Activities of Daily Living Deficits IADL Deficits Identified Deficits Home Safety Awareness Awareness of Need for Assistance at Home Decreased Awareness Ability to Problem Solve Emergency Unable to Problem Solve Situations Medication Management Medication Management Caregiver Administers Money Management Money Management Caregiver Provides Assistance Meal Preparation Meal Preparation Caregiver Provides Assist Financial Solutions Advisor Financial Solutions Advisor Caregiver Provides Assist Driving Driving Comments Pt does not drive M6 OT- IP Functional Cognition Start: 01/16/21 13:23 Freq: Status: Active Protocol: Document 01/16/21 13:24 CGR (Rec: 01/16/21 13:48 CGR [id number]) Cognitive Factors Limiting Selfcare Function Cognitive Ability Level of Alertness Alert,Confusional State Patient Orientation Name,Birthday,Place Attention Span Ability Capable of Focused Attention, Capable of Sustained Attention Ability to Follow Commands Able to Follow One Step Commands with Increased Time, Able to Follow One Step Commands with Repetition Cognitive Comments Cognitive Assessment Comments PT may benefit from formal cog assessment. OT- Vision and Hearing OT- Hearing Assessment OT- Hearing Assessment WFL OT- Vision Assessment Visual Acuity Glasses All The Time Visual Attentiveness WFL Vision Assessment Comments Pt is slow with occular pursuits M7 OT- IP Mobility and Balance Start: 01/16/21 13:23 Freq: Status: Active Protocol: Document 01/16/21 13:24 CGR (Rec: 01/16/21 13:48 CGR [id number]) OT- Bed Mobility Assessment Supine to Sit Supine to Sit Assist Maximum Assistance,1 Person Assistance,2 Person Assistance Scooting Scooting to Edge of Bed Maximum Assistance,1 Person Assistance,2 Person Assistance OT-Transfer Assessment Sit to and From Stand Sit to and from Stand Maximum Assistance,1 Person Assistance,2 Person Assistance Transfers Transfer Ability Maximum Assistance,1 Person Assistance,2 Person Assistance Technique Transfer Destination Bed,Chair Transfer Technique Stand Step Pivot Devices Transfer Assistive Devices Gait Belt,Front Wheeled Walker Comments Mobility Comments mobility from bed to chair OT- Gait Assessment Gait Gait Assistance Required: Maximum Assistance,1 Person Assist,2 Person Assist Assistive Devices Assistive Device Gait Belt,Front Wheeled Walker Comments Gait Ability Comments ambulation from chair with chair follow. See P.T. note for further information. OT- Balance Assessment Sitting Balance and Reactions Static Sitting Balance Ability Fair Dynamic Sitting Balance Ability Fair M8 OT- IP Objective Assessments Start: 01/16/21 13:23 Freq: Status: Active Protocol: Document 01/16/21 13:24 CGR (Rec: 01/16/21 13:48 CGR [id number]) OT Gross Range of Motion Upper Extremity Range of Motion Assessment Within Functional Limits OT Strength Upper Extremity Strength Assessment Within Functional Limits Comments Strength Comments grossly 4/5 OT- Coordination Assessment Upper Extremity Finger to Nose Test Within Functional Limits Finger Tapping Test Bilateral UE Impaired Comments Coordination Comments Pt's fine motor coordination noted to be poor. OT-Muscle Tone Assessment Muscle Tone WNL Yes OT Sensation Assessment Edema Edema Absent M9 OT- IP Assessment and Plan Start: 01/16/21 13:23 Freq: Status: Active Protocol: Document 01/16/21 13:24 CGR (Rec: 01/16/21 13:48 CGR [id number]) OT Summary Assessment and Plan Potential Rehabilitation Potential Good Analytic Complexity at Evaluation Moderate Summary OT Impairments Balance,Coordination, Functional Cognition, Functional Mobility,Grooming, Dressing,Toileting,Bathing, Toilet Transfers,Shower Transfers,Activity Tolerance Progress Towards Goals Slow Progress due to Medical Issues,Slow Progress due to Cognition Assessment Summary Pt presents as a moderate complexity evaluation s/p admit for multiple falls, urinary retention and POLLY. Pt is currently requiring max a for mobility and will benefit from continued therapy services. Pt's home is well set up for pt's needs but pt will need around the clock physical help if he discharges home vs SNF Goals Grooming Goal Independent Dressing Goal Minimal Assistance Toileting Goal Independent Bathing Goal Minimal Assistance Toilet Transfer Goal Standby Assistance Shower Transfer Goal Standby Assistance Days to Meet Goals 15 Frequency of Treatment Frequency Of Treatment Once a Day Treatment Plan OT Treatment Plan ADL Training,Functional Cognition Training,Functional Mobility,Patient/Family Education,Discharge Planning Other Treatment Recommendations and Next ADLs seated Treatment Focus Discharge Recommendations OT Discharge Recommendations Home with 24/ Assist Available,SNF Rehab Transportation Needs at Discharge Private Vehicle
[2021-01-16] MEDS: CARBIDOPA-LEVODOPA ER 50/200 TABLET 1.5 EACH PO ×3 (10:00→20:12)
[2021-01-16] MEDS: SODIUM CHLORIDE 0.9% FLUSH 10 ML IV ×2 (10:00→20:10)
[2021-01-16] MEDS: BUMETANIDE 1 MG TABLET 2 MG PO (10:00)
[2021-01-16] MEDS: DOCUSATE 100 MG CAPSULE PO ×2 (10:00→20:10)
[2021-01-16] MEDS: FAMOTIDINE 20 MG TABLET 10 MG PO (10:10)
[2021-01-16] MEDS: POTASSIUM CHLORIDE 10 MEQ TAB PO ×2 (10:10→20:10)
--- NOTE | 2021-01-16 14:44 | PM.PN.1 ---
Subjective Subjective Date Patient Seen: 01/16/21 Time Patient Seen: 08:05 Interval history: Interval history: Damian Marquez is an 80 year old male with PMH of Parkinson's disease, paroxysmal atrial fibrillation, and artificial urethral sphincter who was admitted with difficulties with his artificial urethral sphincter leading to urinary retention, POLLY, and bilateral hydronephrosis. The device was deactivated by Urology yesterday, and urine output has been monitored. His POLLY has improved Given a dose of levaquin x1. UA negative and Levaquin was discontinued. Patient denies complaints today including abdominal pain, chest pain, palpitations. Fluids discontinued 01/15/2021 and I will continue to monitor for post-obstructive diuresis. Possible discharge to SNF for PT/OT. Exam Vital Signs (past 8 hours): - 01/16/21 09:48 01/16/21 13:00 Temperature 97.6 F 98 F Pulse Rate 79 77 Respiratory Rate 17 16 Blood Pressure 160/70 H 155/77 H Pulse Oximetry 98 97 Oxygen Delivery Method Room Air Oxygen Flow Rate 0 Narrative Exam Narrative: General: Patient is a well-developed, well-nourished male in no distress at this time. HEENT: Normocephalic, atraumatic, extraocular muscles intact, oral pharynx is clear and mucous membranes are moist. Neck is supple and symmetric, trachea is midline, no adenopathy, no thyroid enlargement, nontender, no masses palpated. Negative for JVD Chest: Normal AP diameter and contour without kyphoscoliosis, no nasal flaring, retractions, or tachypneic labored Lungs: Auscultation of all lung adhikari are clear without adventitious sounds, wheezes, rhonchi, or rales. Cardio: S1 & S2 with regular rate and rhythm without murmur, rubs, or gallops, no carotid bruit, no cardiac pulsations present. Abdomen: Soft nontender, negative for organomegaly, or masses. No guarding or rebound, no CVA tenderness. Patient has an artificial sphincter in the urethra Musculoskeletal: Muscle strength and tone are equal within normal limits, no deformity, crepitus, effusions, cyanosis, clubbing or edema present. Full range of motion intact radial and pedal pulses are normal. Skin: Warm dry and intact without rashes, ulcerations or petechiae. Neuro: Alert, strength is +5/5 in all extremities, sensation to touch intact, no gross deficits noted of cranial nerves. Psych: Patient has a well-kept appearance, appropriate affect, poor historian and no recall. Objective Labs Result Diagrams: 01/16/21 05:45 01/16/21 05:45 Labs: Laboratory Results - last 24 hr 01/16/21 01/16/21 01/16/21 05:45 05:45 05:45 WBC 8.7 RBC 3.52 L Hgb 10.4 L Hct 31.1 L MCV 88.3 MCH 29.5 MCHC 33.4 RDW 14.3 Plt Count 182 Neut % (Auto) 67.2 Lymph % (Auto) 16.6 L [place] % (Auto) 12.9 Eos % (Auto) 2.9 Baso % (Auto) 0.4 Neut # (Auto) 5800 Lymph # (Auto) 1400 [place] # (Auto) 1100 H Eos # (Auto) 300 Baso # (Auto) 0 PT 47.3 H D INR 4.1 H Sodium 140 Potassium 3.2 L Chloride 106 Carbon Dioxide 29 BUN 36 H Creatinine 2.00 H Estimated GFR 32.1 L BUN/Creatinine Ratio 18.0 Glucose 91 Calcium 8.7 Magnesium 1.6 PFSH Medical History Atrial fibrillation Congestive heart failure History of gastroesophageal reflux (GERD) History of prostate cancer History of warfarin therapy Hypertension Parkinsons Surgical History History of colonoscopy History of penile implant History of permanent cardiac pacemaker placement History of prostatectomy Social History household members: spouse Smoking Status: Former smoker alcohol intake: current Assessment & Plan Assessment & Plan narrative: Damian Marquez is an 80 year old male with PMH of Parkinson's disease, paroxysmal atrial fibrillation, and artificial urethral sphincter who was admitted with difficulties with his artificial urethral sphincter leading to urinary retention, POLLY, and bilateral hydronephrosis. Device now deactivated and monitoring for post-obstructive diuresis while creatinine continues to improve. 1.Acute kidney injury secondary to urinary retention with bilateral hydronephrosis, now monitoring for postobstructive diuresis, suspect acute on chronic, secondary to artificial urethral sphincter, present on admission - continue strict intake and output with measurements of patient diapers. Continuous fluids stopped 01/15/2021. - POLLY improved today to 2.00, baseline around 1.1-1.3 which likely indicates CKD 3 at baseline. 2. Paroxysmal atrial fibrillation on warfarin, chronic, present on admission, stable. -patient anticoagulated with warfarin with an INR of 4.1 today, d/c warfarin, monitor INR. Consult pharmacy for warfarin dosing -patient had a permanent pacemaker implantation in April 2020. -Continue metoprolol succinate 25 mg daily. 3. Chronic Heart failure, unknown type, present on admission, stable. -no known EF, and no TTE available for review. No current indications for repeat echocardiogram. Continue home medications at this time. 4. history of prostate cancer with urinary retention, chronic, present on admission, stable. -Patient has a history of prostate cancer status post prostatectomy with lymph node clips and penile implant in place and artificial sphincter which is now deactivated as discussed above. Should remain deactivated per urology. 5. Parkinson's disease, chronic, present on admission, stable. -Continued home carbidopa/levodopa 1.5 tab 3 times daily. 6. GERD, chronic, present on admission, stable. -Continue home Protonix 40 mg daily. 7. paroxysmal atrial fibrillation, stable - continue warfarin. VTE prophylaxis: on coumadin Code status: Full code, patient designates his to be surrogate decision maker. COVID PCR: negative Dispo: admitted under intpatient status given degree of POLLY and obstruction and need to monitor in this patient for post-obstructive diuresis. Start PT/OT, possible discharge to SNF as soon as tomorrow if he is not excessively urinating and creatinine continues to improve. Quality VTE Deep Vein Thrombosis/Pulmonary Embolism Present on Admission: No
[2021-01-16] MEDS: METOPROLOL ER 25 MG TABLET 12.5 MG PO (20:10)
[2021-01-16 22:24] LABS: INR 4.1 (0.9-1.3); Prothrombin Time 46.8 SECONDS (10.1-12.7)
[2021-01-17 00:41] VITALS: BP 164/96; PULSE 77; RESP 14; TEMP 36.9; O2SAT 95
--- NOTE | 2021-01-17 01:34 | PC.NURSE ---
0039: patient more sleepy tonight and becoming frustrated with orientation questions asked finally responding I'm going to go back to sleep. Was able to state name and birthdate. Breath sounds diminished throughout but CTA with RA sat of 95%. HR irregular with hx of afib and telemetry reading of afib SVR with rate of 55 bpm. BT present and abdomen is soft; has not had BM since 3. Is incontinent of urine. Not able to move self completely although does attempt to help; is being repositioned q2h. Continues to have 3+ edema in bilateral LE. Fall risk score is high and bed alarm is activated. FLACC of 0.
[2021-01-17 03:54] VITALS: BP 180/88; PULSE 71; RESP 20; TEMP 36.6; O2SAT 96
[2021-01-17 06:20] LABS: Add Manual Diff / Slide Review NO; Basophils Absolute Auto 0 /uL (0-100); Basophils Percent Auto 0.4 % (0-2); Eosinophils Absolute Auto 400 /uL (0-450); Eosinophils Percent Auto 5.2 % (2-4); Hematocrit 31.9 % (41-53); Hemoglobin 10.9 g/dL (13.5-17.5); INR 3.4 (0.9-1.3); Lymphocytes Absolute Auto 1400 /uL (1100-4500); Mean Corpuscular HGB Conc 34.1 % (30-36); Mean Corpuscular Hemoglobin 30.1 PG (26-34); Mean Corpuscular Volume 88.3 fL (80-100); Monocytes Absolute Auto 1000 /uL (0-900); Monocytes Percent Auto 12.4 % (3-14); Neutrophils Absolute Auto 5000 /uL (1500-7000); Platelet Count 201 X10^3/uL (150-400); Prothrombin Time 38.4 SECONDS (10.1-12.7); Red Blood Cell Count 3.61 X10^6/uL (4.5-5.9); Red Cell Distribution Width 14.7 % (11.6-14.8); White Blood Cell Count 7.8 X10^3/uL (4.5-11.0)
[2021-01-17 06:24] LABS: BUN Creatinine Ratio 18.9 (6-22); Blood Urea Nitrogen 34 mg/dL (9-20); Calcium 8.6 mg/dL (8.4-10.2); Carbon Dioxide 31 mmol/L (22-32); Chloride 105 mmol/L (98-107); Estimated Glomerular Filt Rate 36.3 mL/min (>60); Glucose 93 mg/dL (80-110); HEMOLYSIS < 15 (0-50); Magnesium 1.6 mg/dL (1.6-2.3); Sodium 139 mmol/L (137-145)
[2021-01-17 08:19] VITALS: BP 169/61; PULSE 66; RESP 16; TEMP 36.3; O2SAT 97
[2021-01-17] MEDS: POTASSIUM CHLORIDE 20 MEQ in SODIUM CHLORIDE 0.9% 250 ML 130 ML IV (08:32)
[2021-01-17] MEDS: DOCUSATE 100 MG CAPSULE PO (09:36)
[2021-01-17] MEDS: POTASSIUM CHLORIDE 10 MEQ TAB PO (09:36)
[2021-01-17] MEDS: BUMETANIDE 1 MG TABLET 2 MG PO (09:36)
[2021-01-17] MEDS: CARBIDOPA-LEVODOPA ER 50/200 TABLET 1.5 EACH PO ×2 (09:37→14:24)
[2021-01-17] MEDS: FAMOTIDINE 20 MG TABLET 10 MG PO (09:37)
[2021-01-17] MEDS: SODIUM CHLORIDE 0.9% FLUSH 10 ML IV (09:38)
[2021-01-17 09:52] VITALS: O2SAT 96
--- NOTE | 2021-01-17 11:15 | PT.IPTN ---
Current Diagnoses Acute kidney failure, unspecified (01/14/21) Physical Therapy Treatment Note M2 PT-IP Current Condition Start: 01/15/21 15:55 Freq: NEEDED Status: Active Protocol: Document 01/16/21 09:27 AB (Rec: 01/16/21 12:06 AB [id number]) Physical Therapy Current Condition Current Condition Evaluation Date 01/16/21 Treatment Diagnosis acute kidney injury; PD; difficulty in walking Onset Date 01/14/21 Precautions Other Precautions falls M3 PT-IP Subjective Start: 01/15/21 15:55 Freq: NEEDED Status: Active Protocol: Document 01/17/21 11:15 AB (Rec: 01/17/21 11:47 AB [email or web address]) Subjective Physical Therapy Visit Type Type Treatment Note Visit Start Time 11:15 Visit Stop Time 11:34 Total Visit Minutes 19 Number of COOKER PROCESS CHEESE Visits 0 Physical Therapy Visit Comments Patient Comments pt is sitting up on chair and agreed to do PT M4 PT-IP Mobility and Gait Start: 01/15/21 15:55 Freq: NEEDED Status: Active Protocol: Document 01/17/21 11:15 AB (Rec: 01/17/21 11:47 AB [id number]) PT-Transfer Assessment Sit to and From Stand Sit to and from Stand Maximum Assistance,1 Person Assistance,2 Person Assistance ,Use of Upper Extremities Equipment Transfer Assistive Device Gait Belt,Front Wheeled Walker Orthotic/Prosthetic Devices or Brace: No Comments Mobility Comments pt completed sit to stand from chair max A and max cues for techniques. ambulated 20 ft using FWW mod A and cues for techniques and use of FWW. pt with slow keira and requires in time to respond to instructions. pt requiring brief change and OT in as well to assist. assisted pt with standing balance mod A using FWW while OT assisted with brief change. pt instructed to sit back down on chair requiring max A for controlled descent. positioned brief and pt completed sit to stand again max A x 2 and max cues. pt required assist with pulling brief up. sat back on chair and pt stated that he is tired . positioned on chair. required max A for scooting and positioning. call light and table placed within reach. chair alarm on. Gait Assessment Gait Gait Assistance Required: Moderate Assistance Distance (Feet) 20 Able to Maintain Weight Bearing Status Yes During Gait Assistive Devices Assistive Device Gait Belt,Front Wheeled Walker Orthotic/Prosthetic Devices or Brace: No Gait Deviations General Gait Pattern Antalgic,Decreased Stride Length,Decreased Feet Clearance,Flexed Trunk,Step-to Gait Factors Limiting Gait Function Factors Limiting Gait Function Decreased Activity Tolerance, Decreased Strength,Difficulty Following Directions,Limited Range of Motion,Poor Balance, Poor Safety Awareness Comments Gait Comments pls refer to mobility section for details M5 PT-IP Objective Assessments Start: 01/15/21 15:55 Freq: NEEDED Status: Active Protocol: Document 01/16/21 09:27 AB (Rec: 01/16/21 12:06 AB [id number]) Orientation Orientation/Cognition Level of Alertness Alert Orientation Name,Year,Place Safety Awareness Decreased Safety Awareness Memory Description Short Term Impaired Gross Range of Motion Lower Extremity ROM Assessment Within Functional Limits Strength Lower Extremity Strength Assessment Bilaterally Impaired Comments Strength Comments RLE 3+/5 LLE 4-/5 Muscle Tone Muscle Tone WNL Yes M6 PT-IP Treatment Start: 01/15/21 15:55 Freq: NEEDED Status: Active Protocol: Document 01/17/21 11:15 AB (Rec: 01/17/21 11:47 AB [id number]) Physical Therapy Treatment Education Education Provided Safety M7 PT-IP Assessment and Plan Start: 01/15/21 15:55 Freq: NEEDED Status: Active Protocol: Document 01/17/21 11:15 AB (Rec: 01/17/21 11:47 AB [id number]) PT Summary Assessment and Plan Potential Rehabilitation Potential Good Summary Impairments Pain,ROM,Strength,Balance, Coordination,Sensation,Tone, Cognition,Bed Mobility, Transfers,Gait,Activity Tolerance Progress Towards Goals Slow Progress due to Medical Issues,Slow Progress due to Activity Tolerance Assessment Summary pt is progressing slowly and able to complete transfer max A x 1 but requiring max A x 2 as pt fatigues. pt will benefit from SNF rehab to improve strength and mobility. Goals Bed Mobility Goal Contact Guard Assistance Transfer Goal Minimal Assistance,Front Wheeled Walker Gait Goal Minimal Assistance,Front Wheel Walker Gait Distance 100 Other Goals improve bed mobility, transfers to SBA improve ambualtion using FWW CGA 150 ft Days to Meet Goals 10 Frequency of Treatment Frequency Of Treatment Once a Day Treatment Plan Physical Therapy Treatment Plan Bed Mobility Training,Transfer Training,Gait Training, Therapeutic Exercise,Balance Retraining,Discharge Planning, Hot or Cold Pack,Neuromuscular Re-ed,Coordination Retraining ,Manual Therapy Recommendations To Nursing Amount of Assist Needed 2 Person Assist Discharge Recommendations PT Discharge Recommendations SNF Rehab Transportation Needs at Discharge Wheelchair/Cabulance
--- NOTE | 2021-01-17 11:28 | OT.IP.TRT ---
Current Diagnoses Acute kidney failure, unspecified (01/14/21) Occupational Therapy Treatment Note M2 OT-IP Current Condition Start: 01/16/21 13:23 Freq: Status: Active Protocol: Document 01/16/21 13:24 CGR (Rec: 01/16/21 13:48 CGR [id number]) Occupational Therapy Current Condition Current Condition Evaluation Date 01/16/21 Treatment Diagnosis multiple falls, urinary retension, ADK Diagnosis Onset Date 01/14/21 M3 OT- IP Subjective and Pain Start: 01/16/21 13:23 Freq: Status: Active Protocol: Document 01/17/21 11:29 CGR (Rec: 01/17/21 11:38 CGR [id number]) OT- Subjective Occupational Therapy Visit Type Type Progress Note Visit Start Time 10:47 Visit Stop Time 11:28 Total Visit Minutes 41 Notes Partial co-treat with P.T. OT Pain Assessment Pain When Pain Assessed At Rest Pain Present Pain Present Denied Pain M4 OT- IP ADL's Start: 01/16/21 13:23 Freq: Status: Active Protocol: Document 01/17/21 11:29 CGR (Rec: 01/17/21 11:38 CGR [id number]) OT [id number] Comments OT Self-Feeding Comments Not meal time OT ADL-Grooming General Evaluation Grooming Ability Standby Assistance Areas Needing Assistance Combing/Brushing Hair,Face Washing Comments OT Grooming Comments seated in chair with set up. Pt needs extra time to perform OT ADL-Oral Care General Eval Oral Care Ability Standby Assistance Areas of Assistance Brushing Teeth Comments Oral Care Comments Seated in chair. Pt needs extra time to perform OT ADL-Dressing General Eval Lower Body Dressing Ability Total Assistance Areas Needing Assistance Underpants/Brief,Socks OT ADL-Toileting General Evaluation Toileting Ability Total Assistance Areas Needing Assistance Manage Clothing,Perform Perineal Hygiene Comments OT Toileting Comments Pt with soiled brief. Pt stood for doffing brief and donning clean brief and pericare. OT ADL-Bathing Comments OT Bathing Comments Not performed M5 OT- IP IADL's Start: 01/16/21 13:23 Freq: Status: Active Protocol: Document 01/16/21 13:24 CGR (Rec: 01/16/21 13:48 CGR [id number]) OT-Instrumental Activities of Daily Living Deficits IADL Deficits Identified Deficits Home Safety Awareness Awareness of Need for Assistance at Home Decreased Awareness Ability to Problem Solve Emergency Unable to Problem Solve Situations Medication Management Medication Management Caregiver Administers Money Management Money Management Caregiver Provides Assistance Meal Preparation Meal Preparation Caregiver Provides Assist Pressing Machine Operator Pressing Machine Operator Caregiver Provides Assist Driving Driving Comments Pt does not drive M6 OT- IP Functional Cognition Start: 01/16/21 13:23 Freq: Status: Active Protocol: Document 01/16/21 13:24 CGR (Rec: 01/16/21 13:48 CGR [id number]) Cognitive Factors Limiting Selfcare Function Cognitive Ability Level of Alertness Alert,Confusional State Patient Orientation Name,Birthday,Place Attention Span Ability Capable of Focused Attention, Capable of Sustained Attention Ability to Follow Commands Able to Follow One Step Commands with Increased Time, Able to Follow One Step Commands with Repetition Cognitive Comments Cognitive Assessment Comments PT may benefit from formal cog assessment. OT- Vision and Hearing OT- Hearing Assessment OT- Hearing Assessment WFL OT- Vision Assessment Visual Acuity Glasses All The Time Visual Attentiveness WFL Vision Assessment Comments Pt is slow with occular pursuits M7 OT- IP Mobility and Balance Start: 01/16/21 13:23 Freq: Status: Active Protocol: Document 01/17/21 11:29 CGR (Rec: 01/17/21 11:38 CGR [id number]) OT- Bed Mobility Assessment Supine to Sit Supine to Sit Assist Maximum Assistance,1 Person Assistance,Head of Bed Elevated Scooting Scooting to Edge of Bed Maximum Assistance,1 Person Assistance,Bedrails OT-Transfer Assessment Sit to and From Stand Sit to and from Stand Moderate Assistance,Maximum Assistance,1 Person Assistance ,2 Person Assistance Transfers Transfer Ability Moderate Assistance,1 Person Assistance Technique Transfer Destination Bed,Chair Transfer Technique Stand Step Pivot Devices Transfer Assistive Devices Gait Belt,Front Wheeled Walker Comments Mobility Comments Pt stood from high bed with mod a at start of session and transfered to chair with mod a . Pt then performed ADLs before P.T. entered for mobility training. Sit to stand from chair max a with max vc for hand placement and directions for upright posture . Pt then ambulated to window to see family outside and then returned to chair. Pt then stood from chair a second time to pull up clean briefs requiring max x 2. OT- Balance Assessment Sitting Balance and Reactions Static Sitting Balance Ability Fair Dynamic Sitting Balance Ability Fair M8 OT- IP Objective Assessments Start: 01/16/21 13:23 Freq: Status: Active Protocol: Document 01/16/21 13:24 CGR (Rec: 01/16/21 13:48 CGR [id number]) OT Gross Range of Motion Upper Extremity Range of Motion Assessment Within Functional Limits OT Strength Upper Extremity Strength Assessment Within Functional Limits Comments Strength Comments grossly 4/5 OT- Coordination Assessment Upper Extremity Finger to Nose Test Within Functional Limits Finger Tapping Test Bilateral UE Impaired Comments Coordination Comments Pt's fine motor coordination noted to be poor. OT-Muscle Tone Assessment Muscle Tone WNL Yes OT Sensation Assessment Edema Edema Absent M9 OT- IP Assessment and Plan Start: 01/16/21 13:23 Freq: Status: Active Protocol: Document 01/17/21 11:29 CGR (Rec: 01/17/21 11:38 CGR [id number]) OT Summary Assessment and Plan Potential Rehabilitation Potential Good Analytic Complexity at Evaluation Moderate Summary OT Impairments Balance,Coordination, Functional Cognition, Functional Mobility,Grooming, Dressing,Toileting,Bathing, Toilet Transfers,Shower Transfers,Activity Tolerance Progress Towards Goals Slow Progress due to Medical Issues,Slow Progress due to Cognition Assessment Summary Pt presents as a moderate complexity evaluation s/p admit for multiple falls, urinary retention and POLLY. Pt shows improvement with his mobility on this date but fatigues quickly requiring more assist towards end of session. Pt will benefit from continued therapy services. Recommendation is for continued therapy services at SNF upon discharge. Goals Grooming Goal Independent Dressing Goal Minimal Assistance Toileting Goal Independent Bathing Goal Minimal Assistance Toilet Transfer Goal Standby Assistance Shower Transfer Goal Standby Assistance Days to Meet Goals 15 Frequency of Treatment Frequency Of Treatment Once a Day Treatment Plan OT Treatment Plan ADL Training,Functional Cognition Training,Functional Mobility,Patient/Family Education,Discharge Planning Other Treatment Recommendations and Next ADLs seated Treatment Focus Discharge Recommendations OT Discharge Recommendations Home with 06/06 Assist Available,SNF Rehab Transportation Needs at Discharge Wheelchair/Cabulance
[2021-01-17 11:34] LABS: COVID19 -Nasal RAPID Negative (Negative)
--- NOTE | 2021-01-17 13:36 | P.DS_ITS ---
History of Present Illness History of Present Illness Date Patient Seen: 01/17/21 Time Patient Seen: 13:42 Chief complaint: Weakness Narrative: 80-year-old male with Parkinson's, dementia comes to the emergency department complaint of weakness. After sliding out of his bed without a definite fall or injury he has continued to be weak and unable to ambulate. The patient has an artificial urinary sphincter which she uses to help release urine from his bladder but that it is becoming less effective and he is having urinary incontinence. He has had no fevers chills night sweats palpitation shortness of breath nausea vomiting abdominal pain Because of his significant problems with weakness he was brought to the ED. vital signs were stable he was afebrile room air O2 sat was normal at 98%. EKG revealed atrial fibrillation with controlled ventricular response. Head CT:Acute disease in the brain. Stable mild ventricular prominence. Paranasal sinus disease noted. CT scan abdomen/pelvis: Markedly distended urinary bladder estimate to measure 26 cm on sagittal image 54. Associated severe bilateral hydroureteronephrosis without evidence of an obstructing stone. Sub cm stone in the right kidney. Mild nonspecific perinephric stranding noted bilaterally. Liver has mildly nodular contour. No evidence of abdominal aortic aneurysm. Surgical clips noted in the pelvis. No evidence of bowel obstruction or free air. No pericolonic inflammation. Dr. Dawson your urology was called and he recommended do not place a Martinez catheter. The patient was admitted for ongoing management of his weakness with PT OT eval. Discharge Providers Provider Date of admission: 01/14/21 12:00 Discharge Date: 01/17/21 Primary care physician: Linda Scott MD Consults: 01/14/21 08:47 Consult to Urology Routine Comment: Consulting Provider: Corin Dawson Reason for consultation: artificial spincture release. Patient unable to maintain on his own. Has provider been notified: Yes 01/15/21 15:25 Consult to Occupational Therapy Evaluate & Treat Comment: Physician Instructions: Evaluate and treat Consult to Physical Therapy Evaluate & Treat Comment: Physician Instructions: Evaluate and Treat 01/16/21 14:57 Consult to Pharmacy Routine Comment: Please manage patient's warfarin therapy Discharge provider: Ming Hung MD Summary Status at Discharge Cognitive/behavioral status at discharge: oriented, at baseline, oriented and calm Functional status at discharge: uses cane/walker Overall status at discharge: patient is progressing back to baseline Time Spent with Patient Time spent: Greater than 30 minutes Exam Vital Signs (past 8 hours): - 01/17/21 08:19 01/17/21 09:52 Temperature 97.3 F L Pulse Rate 66 Respiratory Rate 16 Blood Pressure 169/61 H Pulse Oximetry 97 96 Oxygen Delivery Method Room Air Oxygen Flow Rate 0 Narrative Exam Narrative: General: Patient is a well-developed, well-nourished male in no distress at this time. HEENT: Normocephalic, atraumatic, extraocular muscles intact, oral pharynx is clear and mucous membranes are moist. Neck is supple and symmetric, trachea is midline, no adenopathy, no thyroid enlargement, nontender, no masses palpated. Negative for JVD Chest: Normal AP diameter and contour without kyphoscoliosis, no nasal flaring, retractions, or tachypneic or labored breathing Lungs: Auscultation of all lung adhikari are clear without adventitious sounds, wheezes, rhonchi, or rales. Cardio: S1 & S2 with regular rate and rhythm without murmur, rubs, or gallops, no carotid bruit, no cardiac pulsations present. Abdomen: Soft nontender, negative for organomegaly, or masses. No guarding or rebound, no CVA tenderness. 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 Full range of motion intact radial and pedal pulses are normal. Skin: Warm dry and intact without rashes, ulcerations or petechiae. Neuro: Alert, strength is +5/5 in all extremities, sensation to touch intact, no gross deficits noted of cranial nerves. Psych: Patient has a well-kept appearance, appropriate affect, poor historian and no recall. Objective Labs Result Diagrams: 01/17/21 05:55 01/17/21 05:55 Labs: Laboratory Results - last 24 hr 01/16/21 01/17/21 01/17/21 22:11 05:55 05:55 WBC 7.8 RBC 3.61 L Hgb 10.9 L Hct 31.9 L MCV 88.3 MCH 30.1 MCHC 34.1 RDW 14.7 Plt Count 201 Neut % (Auto) 64.0 Lymph % (Auto) 18.0 L Cooper % (Auto) 12.4 Eos % (Auto) 5.2 H Baso % (Auto) 0.4 Neut # (Auto) 5000 Lymph # (Auto) 1400 Cooper # (Auto) 1000 H Eos # (Auto) 400 Baso # (Auto) 0 PT 46.8 H 38.4 H D INR 4.1 H 3.4 H Sodium Potassium Chloride Carbon Dioxide BUN Creatinine Estimated GFR BUN/Creatinine Ratio Glucose Calcium Magnesium SARS-CoV-2 (PCR) 01/17/21 01/17/21 05:55 10:50 WBC RBC Hgb Hct MCV MCH MCHC RDW Plt Count Neut % (Auto) Lymph % (Auto) Cooper % (Auto) Eos % (Auto) Baso % (Auto) Neut # (Auto) Lymph # (Auto) Cooper # (Auto) Eos # (Auto) Baso # (Auto) PT INR Sodium 139 Potassium 3.0 L Chloride 105 Carbon Dioxide 31 BUN 34 H Creatinine 1.80 H Estimated GFR 36.3 L BUN/Creatinine Ratio 18.9 Glucose 93 Calcium 8.6 Magnesium 1.6 SARS-CoV-2 (PCR) Negative [facility] Medical History Atrial fibrillation Congestive heart failure History of gastroesophageal reflux (GERD) History of prostate cancer History of warfarin therapy Hypertension Parkinsons Surgical History History of colonoscopy History of penile implant History of permanent cardiac pacemaker placement History of prostatectomy Social History household members: spouse Smoking Status: Former smoker alcohol intake: current Discharge Assessment & Plan Assessment and Plan Assessment: 1.Acute kidney injury secondary to urinary retention He was observed for post obstructive diuresis. He was well hydrated and there were no problems with this. With resolution of his obstruction and hydration his renal insufficiency improved. On admission his creatinine was 2.75 and by discharge it was 1.88 He has an artificial the urethral sphincter which was causing problems with his obstruction. It was deactivated and he was able to urinate without any problems. Urology recommended no Martinez catheter He wa given dose of levaquin overnight on hospital day #1 for presumed UTI. H however admission UA negative and it was discontinued with only 1 dose being given. The patient has remained afebrile. His white count on discharge was 7.8 3. Bilateral hydronephrosis This is secondary to artificial urethral sphincter This should improve with his artificial urethral sphincter deactivated and free flow of urine 3. Paroxysmal atrial fibrillation, chronic Rate is controlled on Toprol-XL 4, Anticoagulation with warfarin During his hospitalization his INR became supratherapeutic. It has been held for the past 48 hours. And it was 4 0.1 on the day prior to discharge. On the day of discharge was 3.4. Instructions were given to hold his anticoagulation for 2 days and if INR is less than 3 to resume at 2.5 mg per day. Is quite likely that the bump in his INR was secondary to the Levaquin that he received. -patient had a permanent pacemaker implantation in April 2020. -Continue metoprolol succinate 25 mg daily. 4. Chronic Heart failure, unknown type, present on admission, stable. Patient had no problems with increasing shortness of breath, orthopnea, PND during his admission. He he will be maintained on his bumetanide 2 mg p.o. b.i.d. and his Toprol 50 mg p.o. daily 5. history of prostate cancer Patient has a history of prostate cancer status post prostatectomy with lymph node clips and penile implant in place and artificial sphincter which is now deactivated as discussed above. Should remain deactivated per urology. 6. Parkinson's disease, chronic. No increased symptoms and he will be discharged on his home carbidopa/levodopa 1.5 tab 3 times daily. 7. Debility He has been seen by Physical therapy and Occupational therapy during this admission. Per their recommendations is that he has a 2 person assist and needs SNF for rehab. As a result the patient is being transferred to [facility] for ongoing SNF with rehab . Discharge Plan Discharge Plan Patient Disposition: SNF Transfer to: [facility] Discharge orders & Medications Prescriptions: Continued tolterodine 2 mg capsule,extended release 24hr 2 mg PO DAILY RF: 0 metoprolol succinate 50 mg tablet extended release 24 hr 12.5 mg PO DAILY RF: 0 carbidopa-levodopa 50-200 mg tablet extended release 1.5 tab PO TID RF: 0 potassium chloride 10 mEq tablet extended release 10 meq PO BID RF: 0 bumetanide 2 mg tablet 2 mg PO BID RF: 0 cholecalciferol (vitamin D3) [Vitamin D3] 1,000 unit Tablet 1,000 unit PO DAILY RF: 0 nitroglycerin 0.4 mg Tablet, Sublingual 0.4 mg SUBLINGUAL Q5-15M PRN (Reason: chest pain) RF: 0 famotidine [Pepcid] 20 mg Tablet 20 mg PO BID RF: 0 docusate sodium [Colace] 100 mg capsule 100 mg PO BID Qty: 60 RF: 0 Discontinued warfarin 5 mg Tablet See Rx Instructions .ROUTE .COMPLEX RF: 0 Follow up/Referrals: Linda Scott MD [Primary Care Provider] - Discharge Health Status Multidrug resistant organism: No MDRO Diet/Activity/Treatments Diet: Diet as Tolerated Liquid consistency: Normal/Thin Food texture: Regular Visit Report/Discharge Packet Instructions: Acute Kidney Injury, How to Prevent Falls, DI for Urinary Retention in Men Discharge Data Primary Care Provider: Linda Scott Quality VTE Deep Vein Thrombosis/Pulmonary Embolism Present on Admission: No
--- NOTE | 2021-01-17 13:48 | PC.NURSE ---
Day shift: Pt being transported via [employer] people at 1430 today. Report given to ELVIRA Hidalgo. Paperwork in SNF packet. Pt's spouse is in room now and aware of the current plan. Pt was Covid neg today. No c/o of pain, chest pain or nausea. Good appetite. Remains incontinent and briefs have been weighed today and that covered to ML's out w/ good output results.
--- NOTE | 2021-01-17 13:56 | CM.DPC ---
DCP Discharge SNF Per MD, pt is medically stable to d/c to SNF today. SW called [facility] and confirmed they can still accept and can transport around 1400. SW met bedside with pt and spouse and updated on above and they are still agreeable with d/c to [facility] today. SW faxed available signed med rec, updated COVID from today, MD YORDY orders to [facility] and waiting for d/c summ to fax. RANDY updated RN and provided nurse report contact number. RANDY updated welding process engineer and DIAGNOSTIC MEDICAL SONOGRAPHER. Plan: Patient to d/c to [facility] SNF today around 1400 before safe return home with spouse. MAXI Quiroga
--- NOTE | 2021-01-17 14:55 | PC.NURSE ---
Day shift: Pt left unit at approx 1445 w/ SNF transport person. Pt has all personal belongings. SNF person has SNF packet. Pt's spouse with Pt at time of transport.
== END 2021-01-17 14:56 | DRG 683 ==
LOC: ED 01-14 01:10 → AC 01-14 01:10
PROVIDERS: Internal Medicine; Admitting Provider Nurse Practitioner Family; Emergency Provider Emergency Medicine; PCP Family Medicine; Referring Provider Emergency Medicine; Visit Provider Nurse Practitioner Family
DX: N17.9 Acute kidney failure, unspecified (principal); N13.8 Other obstructive and reflux uropathy; N40.1 Benign prostatic hyperplasia with lower urinary tract symptoms; N13.30 Unspecified hydronephrosis; R33.8 Other retention of urine; Z96.0 Presence of urogenital implants; I48.0 Paroxysmal atrial fibrillation; Z79.01 Long term (current) use of anticoagulants; G20 Parkinson's disease; F02.80 Dementia in other diseases classified elsewhere, unspecified severity, without behavioral disturbance, psychotic disturbance, mood disturbance, and anxiety; I11.0 Hypertensive heart disease with heart failure; I50.9 Heart failure, unspecified; Z91.19 Patient's noncompliance with other medical treatment and regimen; Z95.0 Presence of cardiac pacemaker; R29.6 Repeated falls; Z85.46 Personal history of malignant neoplasm of prostate; Z20.822 Contact with and (suspected) exposure to COVID-19; Z87.891 Personal history of nicotine dependence; K21.9 Gastro-esophageal reflux disease without esophagitis
CPT/HCPCS: 36415; 70450; 71045; 74176; 80048; 80053; 80305; 81001; 82550; 83735; 83880; 84100; 84484; 85025; 85610; 87635; 93005; 97116; 97162; 97166; 97535; 99232; 99284; C9803; G0378; A9270; J1956; J3480

== ENCOUNTER → 2021-03-18 09:39 | Outpatient (ROUT) | payer MEDICARE, OTHER, SELFPAY ==
[2021-01-14 01:55] VITALS: BMI 29.2
[2021-03-18 10:10] LABS: INR 2.6 (0.9-1.3); Prothrombin Time 29.7 SECONDS (10.1-12.7)
[2021-03-18 10:26] LABS: Albumin Globulin Ratio 1.1 (1.0-2.8); Alkaline Phosphatase 70 U/L (38-126); Aspartate Aminotransferase 15 IU/L (17-59); BUN Creatinine Ratio 20.9 (6-22); Bilirubin Total 0.4 mg/dL (0.2-1.3); Blood Urea Nitrogen 28 mg/dL (9-20); Calcium 9.3 mg/dL (8.4-10.2); Carbon Dioxide 31 mmol/L (22-32); Chloride 102 mmol/L (98-107); Globulin 3.6 g/dL (1.7-4.1); Glucose 103 mg/dL (80-110); HEMOLYSIS < 15 (0-50); Potassium 3.6 mmol/L (3.4-5.1); Sodium 142 mmol/L (137-145); Total Protein 7.6 g/dL (6.3-8.2)
[2021-03-18 10:27] LABS: Alanine Aminotransferase < 4 IU/L (<50)
[2021-03-18 10:28] LABS: Add Manual Diff / Slide Review NO; Basophils Absolute Auto 100 /uL (0-100); Basophils Percent Auto 0.7 % (0-2); Eosinophils Absolute Auto 600 /uL (0-450); Eosinophils Percent Auto 7.3 % (2-4); Hematocrit 36.2 % (41-53); Hemoglobin 12.1 g/dL (13.5-17.5); Lymphocytes Absolute Auto 1800 /uL (1100-4500); Mean Corpuscular HGB Conc 33.4 % (30-36); Mean Corpuscular Hemoglobin 30.6 PG (26-34); Mean Corpuscular Volume 91.5 fL (80-100); Monocytes Absolute Auto 700 /uL (0-900); Monocytes Percent Auto 9.2 % (3-14); Neutrophils Absolute Auto 4700 /uL (1500-7000); Neutrophils Percent Auto 59.8 % (50-75); Platelet Count 204 X10^3/uL (150-400); Red Blood Cell Count 3.96 X10^6/uL (4.5-5.9); Red Cell Distribution Width 15.1 % (11.6-14.8); White Blood Cell Count 7.8 X10^3/uL (4.5-11.0)
== END ==
PROVIDERS: PCP Family Medicine; Visit Provider Nurse Practitioner Family
DX: I48.91 Unspecified atrial fibrillation (principal); I50.9 Heart failure, unspecified; N18.9 Chronic kidney disease, unspecified; N17.9 Acute kidney failure, unspecified
CPT/HCPCS: 36415; 80053; 85025; 85610

== ENCOUNTER → 2021-03-25 08:21 | Outpatient (ROUT) | payer MEDICARE, OTHER, SELFPAY ==
[2021-01-14 01:55] VITALS: BMI 29.2
[2021-03-25 08:42] LABS: Add Manual Diff / Slide Review NO; Basophils Absolute Auto 0 /uL (0-100); Basophils Percent Auto 0.6 % (0-2); Eosinophils Absolute Auto 600 /uL (0-450); Eosinophils Percent Auto 7.7 % (2-4); Hemoglobin 11.2 g/dL (13.5-17.5); Lymphocytes Absolute Auto 1700 /uL (1100-4500); Mean Corpuscular Hemoglobin 29.3 PG (26-34); Mean Corpuscular Volume 88.9 fL (80-100); Monocytes Absolute Auto 1000 /uL (0-900); Monocytes Percent Auto 11.7 % (3-14); Neutrophils Absolute Auto 5000 /uL (1500-7000); Platelet Count 205 X10^3/uL (150-400); Red Blood Cell Count 3.82 X10^6/uL (4.5-5.9); Red Cell Distribution Width 14.9 % (11.6-14.8); White Blood Cell Count 8.3 X10^3/uL (4.5-11.0)
[2021-03-25 08:52] LABS: INR 2.8 (0.9-1.3)
[2021-03-25 09:03] LABS: Albumin 3.4 g/dL (3.5-5.0); Albumin Globulin Ratio 1.1 (1.0-2.8); Alkaline Phosphatase 64 U/L (38-126); Aspartate Aminotransferase 16 IU/L (17-59); BUN Creatinine Ratio 20.6 (6-22); Bilirubin Total 0.4 mg/dL (0.2-1.3); Blood Urea Nitrogen 26 mg/dL (9-20); Carbon Dioxide 31 mmol/L (22-32); Chloride 103 mmol/L (98-107); Estimated Glomerular Filt Rate 54.8 mL/min (>60); Globulin 3.1 g/dL (1.7-4.1); Glucose 96 mg/dL (80-110); HEMOLYSIS < 15 (0-50); Potassium 3.6 mmol/L (3.4-5.1); Sodium 140 mmol/L (137-145); Total Protein 6.5 g/dL (6.3-8.2)
[2021-03-25 09:04] LABS: Alanine Aminotransferase < 4 IU/L (<50)
== END ==
PROVIDERS: PCP Family Medicine; Visit Provider Internal Medicine
DX: I48.91 Unspecified atrial fibrillation (principal); N17.9 Acute kidney failure, unspecified; R11.0 Nausea; R41.82 Altered mental status, unspecified
CPT/HCPCS: 36415; 80053; 85025; 85610

== ENCOUNTER → 2021-04-22 07:51 | Outpatient (ROUT) | payer MEDICARE, OTHER, SELFPAY ==
[2021-01-14 01:55] VITALS: BMI 29.2
[2021-04-22 08:19] LABS: Prothrombin Time 62.1 SECONDS (10.1-12.7)
[2021-04-22 08:23] LABS: Blood Urea Nitrogen 18 mg/dL (9-20); Calcium 9.3 mg/dL (8.4-10.2); Carbon Dioxide 32 mmol/L (22-32); Chloride 99 mmol/L (98-107); Glucose 97 mg/dL (80-110); HEMOLYSIS < 15 (0-50); Potassium 3.4 mmol/L (3.4-5.1); Sodium 136 mmol/L (137-145)
[2021-04-22 08:29] LABS: INR 5.2 (0.9-1.3)
== END ==
PROVIDERS: PCP Family Medicine; Visit Provider Nurse Practitioner Family
DX: Z92.29 Personal history of other drug therapy (principal); N18.9 Chronic kidney disease, unspecified; Z79.899 Other long term (current) drug therapy
CPT/HCPCS: 36415; 80048; 85610

== ENCOUNTER → 2021-04-24 11:27 | Outpatient (CLI) | payer MEDICARE, OTHER, SELFPAY ==
[2021-01-14 01:55] VITALS: BMI 29.2
[2021-04-24 12:23] LABS: INR 3.8 (0.9-1.3); Prothrombin Time 44.8 SECONDS (10.1-12.7)
== END ==
PROVIDERS: PCP Family Medicine; Referring Provider Internal Medicine; Visit Provider Internal Medicine
DX: R79.1 Abnormal coagulation profile (principal)
CPT/HCPCS: 36415; 85610

== ENCOUNTER → 2021-04-27 14:54 | Outpatient (CLI) | payer MEDICARE, OTHER, SELFPAY ==
[2021-01-14 01:55] VITALS: BMI 29.2
[2021-04-27 15:49] LABS: INR 1.8 (0.9-1.3); Prothrombin Time 20.6 SECONDS (10.1-12.7)
== END ==
PROVIDERS: PCP Internal Medicine; Referring Provider Internal Medicine; Visit Provider Internal Medicine
DX: R79.1 Abnormal coagulation profile (principal)
CPT/HCPCS: 36415; 85610

== ENCOUNTER → 2021-05-06 07:54 | Outpatient (ROUT) | payer MEDICARE, OTHER, SELFPAY ==
[2021-01-14 01:55] VITALS: BMI 29.2
[2021-05-06 08:31] LABS: Add Manual Diff / Slide Review NO; Basophils Absolute Auto 100 /uL (0-100); Basophils Percent Auto 0.8 % (0-2); Eosinophils Absolute Auto 300 /uL (0-450); Eosinophils Percent Auto 4.1 % (2-4); Hematocrit 38.8 % (41-53); Lymphocytes Absolute Auto 1700 /uL (1100-4500); Lymphocytes Percent Auto 22.7 % (25-40); Mean Corpuscular HGB Conc 33.4 % (30-36); Mean Corpuscular Hemoglobin 29.3 PG (26-34); Mean Corpuscular Volume 87.8 fL (80-100); Monocytes Absolute Auto 700 /uL (0-900); Monocytes Percent Auto 9.2 % (3-14); Neutrophils Absolute Auto 4700 /uL (1500-7000); Neutrophils Percent Auto 63.2 % (50-75); Platelet Count 226 X10^3/uL (150-400); Red Blood Cell Count 4.42 X10^6/uL (4.5-5.9); White Blood Cell Count 7.4 X10^3/uL (4.5-11.0)
[2021-05-06 08:53] LABS: BUN Creatinine Ratio 15.2 (6-22); Blood Urea Nitrogen 22 mg/dL (9-20); Calcium 9.5 mg/dL (8.4-10.2); Carbon Dioxide 32 mmol/L (22-32); Chloride 98 mmol/L (98-107); Estimated Glomerular Filt Rate 46.6 mL/min (>60); Glucose 95 mg/dL (80-110); HEMOLYSIS < 15 (0-50); Potassium 3.4 mmol/L (3.4-5.1); Sodium 138 mmol/L (137-145)
[2021-05-06 09:26] LABS: Thyroid Stimulating Hormone 0.327 uIU/mL (0.47-4.68)
[2021-05-06 09:43] LABS: Vitamin B12 894 pg/mL (239-931)
== END ==
PROVIDERS: PCP Internal Medicine; Visit Provider Nurse Practitioner Family
DX: R53.83 Other fatigue (principal)
CPT/HCPCS: 36415; 80048; 82607; 84443; 85025

== ENCOUNTER → 2021-06-10 12:21 | Outpatient (CLI) | payer MEDICARE, OTHER, SELFPAY ==
[2021-01-14 01:55] VITALS: BMI 29.2
[2021-06-10 13:51] LABS: Add Manual Diff / Slide Review NO; Basophils Absolute Auto 0 /uL (0-100); Basophils Percent Auto 0.2 % (0-2); Eosinophils Absolute Auto 0 /uL (0-450); Eosinophils Percent Auto 0.3 % (2-4); Hematocrit 47.2 % (41-53); Hemoglobin 14.8 g/dL (13.5-17.5); Lymphocytes Absolute Auto 1900 /uL (1100-4500); Lymphocytes Percent Auto 12.7 % (25-40); Mean Corpuscular HGB Conc 31.3 % (30-36); Mean Corpuscular Hemoglobin 28.7 PG (26-34); Mean Corpuscular Volume 91.5 fL (80-100); Monocytes Absolute Auto 1100 /uL (0-900); Monocytes Percent Auto 7.3 % (3-14); Neutrophils Absolute Auto 11700 /uL (1500-7000); Neutrophils Percent Auto 79.5 % (50-75); Platelet Count 291 X10^3/uL (150-400); Red Blood Cell Count 5.16 X10^6/uL (4.5-5.9); Red Cell Distribution Width 15.3 % (11.6-14.8); White Blood Cell Count 14.7 X10^3/uL (4.5-11.0)
[2021-06-10 14:17] LABS: Alanine Aminotransferase 10 IU/L (<50); Albumin Globulin Ratio 1.1 (1.0-2.8); Alkaline Phosphatase 151 U/L (38-126); Aspartate Aminotransferase 32 IU/L (17-59); BUN Creatinine Ratio 42.7 (6-22); Bilirubin Total 1.2 mg/dL (0.2-1.3); Blood Urea Nitrogen 91 mg/dL (9-20); Carbon Dioxide 26 mmol/L (22-32); Chloride 112 mmol/L (98-107); Estimated Glomerular Filt Rate 29.9 mL/min (>60); Globulin 3.6 g/dL (1.7-4.1); Glucose 123 mg/dL (80-110); HEMOLYSIS < 15 (0-50); Sodium 150 mmol/L (137-145); Total Protein 7.6 g/dL (6.3-8.2)
[2021-06-10 14:33] LABS: Calcium 11.1 mg/dL (8.4-10.2)
== END ==
PROVIDERS: PCP Internal Medicine; Referring Provider Nurse Practitioner Family; Visit Provider Nurse Practitioner Family
DX: R53.83 Other fatigue (principal); R41.82 Altered mental status, unspecified
CPT/HCPCS: 36415; 80053; 85025